=== PATIENT | female | born 1980 | race African-American/Black ===

== ENCOUNTER 2017-06-21 07:31 | Inpatient (IN) | payer MEDICARE, MEDICAID ==
[~2017-06-21] VITALS: Ht 180.3 cm; Wt 93.0 kg
[~2017-06-21 07:31] MED LIST: AMLO10TA4 PO; ATOR10TA PO; BISA-81 PO; HYDR-4134 PO; OMEP40CA34 PO; ONDA4TAB21 PO; TRAM100T28 PO
[2017-06-21] MEDS ORDERED: MORPHINE SULFATE 4 MG/ML CPJ (NOT FOR IM USE) IV STA (08:20)
[2017-06-21] MEDS ORDERED: ONDANSETRON HCL 4MG/2ML VIAL IV STA (08:20)
[2017-06-21 09:31] LABS: BASOPHILS % 0.7 % (0.0-2.0); EOSINOPHILS % 0.1 % (0.0-5.0); HEMATOCRIT. 35.6 % (36.0-48.0); HEMOGLOBIN. 11.6 g/dL (12.0-16.0); LYMPHOCYTES % 13.5 % (20.0-50.0); MEAN CORPUSCULAR HEMOGLOBIN 28.9 pg (28.0-32.0); MEAN CORPUSCULAR VOLUME 88.7 fL (81.0-99.0); MEAN PLATELET VOLUME 7.9 fl (7.4-10.4); NEUTROPHILS % 81.7 % (40.0-76.0); PLATELET 153 x1000/uL (130-400); RED BLOOD CELL COUNT 4.02 mill/uL (4.2-5.4); RED CELL DISTRIBUTION WIDTH 17.6 % (11.6-14.6)
[2017-06-21 09:44] LABS: CARBON DIOXIDE 21 mEq/L (21-32); CHLORIDE 101 mEq/L (98-107)
[2017-06-21] MEDS ORDERED: INSULIN REGULAR (HUMULIN R) 300UNITS/3ML IV ONE (10:00)
[2017-06-21] MEDS ORDERED: SODIUM BICARBONATE 8.4% 1 MEQ/ML 50ML SYR IV ONE (10:00)
[2017-06-21] MEDS ORDERED: DEXTROSE 50% WATER 50ML SYRINGE IV ONE (10:00)
[2017-06-21] MEDS ORDERED: MORPHINE SULFATE 4 MG/ML CPJ (NOT FOR IM USE) IV ONE (12:45)
[2017-06-21] MEDS ORDERED: ONDANSETRON HCL 4MG/2ML VIAL IV ONE (12:45)
[2017-06-21] MEDS ORDERED: CLONIDINE 0.1MG TABLET PO PRN (14:15)
[2017-06-21] MEDS ORDERED: MAGNESIUM/ALUMINUM HYDROXIDE/SIMETHICONE 30ML UDC PO PRN (14:15)
[2017-06-21] MEDS ORDERED: DOCUSATE SODIUM 100MG CAPSULE PO PRN (14:15)
[2017-06-21] MEDS ORDERED: ACETAMINOPHEN 325MG TABLET PO PRN (14:15)
[2017-06-21] MEDS ORDERED: LORAZEPAM 2MG/ML CPJ IV PRN (14:15)
[2017-06-21] MEDS ORDERED: GUAIFENESIN 200MG/10ML SUGAR FREE UDC PO PRN (14:15)
[2017-06-21] MEDS ORDERED: DIPHENHYDRAMINE 50MG/ML VIAL IV PRN (14:15)
[2017-06-21 16:42] VITALS: BP 182/91
[2017-06-21 18:04] VITALS: BP 182/91
[2017-06-21] MEDS: HYDROMORPHONE HCL/PF 2MG/ML CPJ IV PRN ×2 (18:37→22:42)
[2017-06-21 20:00] VITALS: BP 178/90
[2017-06-21 22:20] LABS: INR 1.1; PARTIAL THROMBOPLASTIN TIME 24.6 sec (23.4-31.0)
[2017-06-21 22:24] LABS: HCG SCREEN NEGATIVE
[2017-06-22 00:14] VITALS: BP 201/94
[2017-06-22] MEDS: ONDANSETRON HCL 4MG/2ML VIAL IV PRN ×2 (00:24→12:09)
[2017-06-22] MEDS: HYDROMORPHONE HCL/PF 2MG/ML CPJ IV PRN ×2 (05:44→12:10)
[2017-06-22 06:30] LABS: BASOPHILS % 0.5 % (0.0-2.0); EOSINOPHILS % 1.3 % (0.0-5.0); HEMATOCRIT. 36.9 % (36.0-48.0); HEMOGLOBIN. 11.6 g/dL (12.0-16.0); LYMPHOCYTES % 36.6 % (20.0-50.0); MEAN CORPUSCULAR HEMOGLOBIN 28.1 pg (28.0-32.0); MEAN CORPUSCULAR VOLUME 89.1 fL (81.0-99.0); MEAN PLATELET VOLUME 8.2 fl (7.4-10.4); NEUTROPHILS % 51.6 % (40.0-76.0); PLATELET 111 x1000/uL (130-400); RED BLOOD CELL COUNT 4.14 mill/uL (4.2-5.4); RED CELL DISTRIBUTION WIDTH 17.3 % (11.6-14.6)
[2017-06-22 06:48] LABS: PHOSPHORUS 7.2 mg/dL (2.5-4.9)
[2017-06-22 07:54] VITALS: BP 187/107
[2017-06-22 11:25] VITALS: BP 185/92
[2017-06-22] MEDS ORDERED: LOSARTAN POTASSIUM 100 MG TABLET PO SCH (11:30)
[2017-06-22] MEDS ORDERED: AMLODIPINE 10MG TABLET PO SCH (11:30)
[2017-06-22 12:00] VITALS: BP 155/85
[2017-06-22] MEDS ORDERED: CALCIUM ACETATE 667MG CAPSULE PO SCH (12:50)
[2017-06-22 15:40] VITALS: BP 155/85
[2017-06-23] MEDS ORDERED: FOLIC ACID/VITAMIN B COMP W-C TABLET PO SCH (09:00)
== END 2017-06-22 16:45 | disposition home or self-care (01) | DRG 73 ==
LOC: ER 07:57 → EDBEDREQ 15:35 → ENRESERV 15:40 → EDBEDREQ 15:54 → 6WST 15:54 → EDBEDREQTM 15:54
PROVIDERS: ADMIT Hospitalist; ATTEND Hospitalist
PROC: 5A1D00Z (ICD-10-PCS; principal; 2017-06-21)
DX: E11.43 Type 2 diabetes mellitus with diabetic autonomic (poly)neuropathy (principal); N18.6 End stage renal disease; E11.22 Type 2 diabetes mellitus with diabetic chronic kidney disease; I12.0 Hypertensive chronic kidney disease with stage 5 chronic kidney disease or end stage renal disease; F11.20 Opioid dependence, uncomplicated; K86.1 Other chronic pancreatitis; K31.84 Gastroparesis; E87.5 Hyperkalemia; F41.9 Anxiety disorder, unspecified; D64.9 Anemia, unspecified; Z99.2 Dependence on renal dialysis; Z88.0 Allergy status to penicillin; Z83.3 Family history of diabetes mellitus; Z84.1 Family history of disorders of kidney and ureter
CPT/HCPCS: 36415; 71010; 80048; 80053; 83605; 83690; 83735; 84100; 84703; 85025; 85610; 85730; 87040; 96374; 96375; 96376; 99285; J1170; J2060; J2270; J2405; J7050

== ENCOUNTER 2017-07-13 12:55 | Emergency (ER) | payer MEDICARE, MEDICAID ==
[~2017-07-13] VITALS: Ht 167.6 cm; Wt 90.0 kg
[2017-07-13] MEDS ORDERED: MORPHINE SULFATE 4 MG/ML CPJ (NOT FOR IM USE) IV STA (13:36)
[2017-07-13] MEDS ORDERED: ONDANSETRON HCL 4MG/2ML VIAL IV STA (13:36)
[2017-07-13 14:40] LABS: CARBON DIOXIDE 26 mEq/L (21-32); CHLORIDE 93 mEq/L (98-107)
[2017-07-13 14:43] LABS: PROTHROMBIN TIME 10.7 sec (9.4-11.6)
[2017-07-13 14:48] LABS: BASOPHILS % 0.2 % (0.0-2.0); EOSINOPHILS % 0.2 % (0.0-5.0); HEMATOCRIT. 34.6 % (36.0-48.0); HEMOGLOBIN. 11.2 g/dL (12.0-16.0); LYMPHOCYTES % 18.7 % (20.0-50.0); MEAN CORPUSCULAR HEMOGLOBIN 28.3 pg (28.0-32.0); MEAN CORPUSCULAR VOLUME 87.6 fL (81.0-99.0); MEAN PLATELET VOLUME 8.3 fl (7.4-10.4); MONOCYTES % 9.2 % (2.0-8.0); NEUTROPHILS % 71.7 % (40.0-76.0); PLATELET 127 x1000/uL (130-400); RED BLOOD CELL COUNT 3.95 mill/uL (4.2-5.4)
[2017-07-13 14:59] LABS: HCG SCREEN NEGATIVE
[2017-07-13] MEDS ORDERED: ONDANSETRON HCL 4MG/2ML VIAL IV ONE (16:45)
[2017-07-13] MEDS ORDERED: IOHEXOL-300 100 ML BOTTLE ONE (16:51)
[2017-07-13] MEDS ORDERED: MORPHINE SULFATE 4 MG/ML CPJ (NOT FOR IM USE) IV ONE (16:56)
[2017-07-13 17:25] VITALS: BP 172/98
== END 2017-07-13 18:57 | disposition home or self-care (01) ==
LOC: ER 13:10
DX: R10.13 Epigastric pain (principal); G89.29 Other chronic pain; N18.6 End stage renal disease; I12.0 Hypertensive chronic kidney disease with stage 5 chronic kidney disease or end stage renal disease; F41.9 Anxiety disorder, unspecified; Z88.0 Allergy status to penicillin; Z99.2 Dependence on renal dialysis
CPT/HCPCS: 36415; 74177; 80053; 83690; 84703; 85025; 85610; 96374; 96375; 96376; 99285; J2270; J2405; Q9967

== ENCOUNTER 2017-10-22 12:55 | Emergency (ER) | payer MEDICARE, MEDICAID ==
[~2017-10-22] VITALS: Ht 177.8 cm; Wt 83.0 kg
[2017-10-22] MEDS ORDERED: MORPHINE SULFATE 4 MG/ML CPJ (NOT FOR IM USE) IV STA (13:12)
[2017-10-22] MEDS ORDERED: MAGNESIUM/ALUMINUM HYDROXIDE/SIMETHICONE 30ML UDC PO STA (13:12)
[2017-10-22] MEDS ORDERED: ONDANSETRON HCL 4MG/2ML VIAL IV STA (13:12)
[2017-10-22] MEDS ORDERED: FAMOTIDINE 20MG/2ML VIAL IV STA (13:12)
[2017-10-22 14:44] LABS: BASOPHILS % 0.3 % (0.0-2.0); EOSINOPHILS % 0.6 % (0.0-5.0); HEMATOCRIT. 35.7 % (36.0-48.0); HEMOGLOBIN. 11.5 g/dL (12.0-16.0); LYMPHOCYTES % 18.6 % (20.0-50.0); MEAN CORPUSCULAR VOLUME 90.2 fL (81.0-99.0); MEAN PLATELET VOLUME 7.3 fl (7.4-10.4); MONOCYTES % 8.9 % (2.0-8.0); NEUTROPHILS % 71.6 % (40.0-76.0); PLATELET 114 x1000/uL (130-400); RED BLOOD CELL COUNT 3.96 mill/uL (4.2-5.4); RED CELL DISTRIBUTION WIDTH 16.6 % (11.6-14.6)
[2017-10-22 14:48] LABS: INR 1.1
[2017-10-22 14:50] LABS: HCG SCREEN NEGATIVE
[2017-10-22 14:58] LABS: CARBON DIOXIDE 29 mEq/L (21-32); CHLORIDE 96 mEq/L (98-107); ETHANOL BLOOD < 10 mg/dL; TROPONIN I < 0.02 ng/mL (0.00-0.04)
[2017-10-22] MEDS ORDERED: ONDANSETRON HCL 4MG/2ML VIAL IV ONE (15:00)
[2017-10-22] MEDS ORDERED: MORPHINE SULFATE 10 MG/ML CPJ IM ONE (15:15)
[2017-10-22] MEDS ORDERED: HYDRALAZINE 20MG/ML VIAL IV ONE (16:15)
[2017-10-22] MEDS ORDERED: NITROGLYCERIN OINT 1GM/INCH UDPKT TD STA (17:55)
[2017-10-22] MEDS ORDERED: METOCLOPRAMIDE HCL 10MG/2ML VIAL IV ONE (18:00)
[2017-10-22] MEDS ORDERED: LABETALOL 5MG/ML SYR 20 MG/4 ML SYRINGE IV ONE (18:00)
[2017-10-22 19:30] VITALS: BP 169/87
[2017-10-22] MEDS ORDERED: DEXT 5%/0.45% NACL 1000ML 1,000 ML IV SCH (19:56)
[2017-10-22] MEDS ORDERED: GUAIFENESIN 200MG/10ML SUGAR FREE UDC PO PRN (20:00)
[2017-10-22] MEDS ORDERED: ACETAMINOPHEN 650MG/20.3ML UDC GT PRN (20:00)
[2017-10-22] MEDS ORDERED: IPRATROPIUM/ALBUTEROL 0.5-3(2.5)MG/3ML NEB INH PRN (20:00)
[2017-10-22] MEDS ORDERED: HYDROCODONE/ACETAMINOPHEN 5/325MG TABLET PO PRN (20:00)
[2017-10-22] MEDS ORDERED: ACETAMINOPHEN 650MG SUPP PR PRN (20:00)
[2017-10-22] MEDS ORDERED: FAMOTIDINE 20MG/2ML VIAL IV SCH (20:00)
[2017-10-22] MEDS ORDERED: CLONIDINE 0.1MG TABLET PO PRN (20:00)
[2017-10-22] MEDS ORDERED: ACETAMINOPHEN 325MG TABLET PO PRN (20:00)
[2017-10-22] MEDS ORDERED: MAGNESIUM/ALUMINUM HYDROXIDE/SIMETHICONE 30ML UDC PO PRN (20:00)
[2017-10-22] MEDS ORDERED: ONDANSETRON HCL 4MG/2ML VIAL IV PRN (20:00)
[2017-10-22] MEDS ORDERED: DOCUSATE SODIUM 100MG CAPSULE PO PRN (20:00)
[2017-10-22] MEDS ORDERED: DEXTROSE 50% WATER 50ML SYRINGE IV PRN (20:15)
[2017-10-22] MEDS ORDERED: INSULIN LISPRO 100 UNITS/ML SUBCUT SCH (21:00)
[2017-10-22] MEDS ORDERED: BLOOD SUGAR DIAGNOSTIC STRIP TEST SCH (21:00)
[2017-10-22] MEDS ORDERED: SODIUM CHLORIDE 0.9% INJ 3ML FLUSH IVF SCH (22:00)
== END 2017-10-22 20:50 | disposition left against medical advice (07) ==
LOC: ER 13:11 → EDBEDREQTM 16:33 → EDBEDREQ 16:33 → ER 20:50 → CANBEDREQ 20:57
DX: I12.0 Hypertensive chronic kidney disease with stage 5 chronic kidney disease or end stage renal disease (principal); N18.6 End stage renal disease; F41.9 Anxiety disorder, unspecified; Z88.0 Allergy status to penicillin; Z99.2 Dependence on renal dialysis
CPT/HCPCS: 36415; 71045; 80053; 83690; 83880; 84484; 84703; 85025; 85610; 93005; 96372; 96374; 96375; 96376; 99285; G0482; J0360; J2270; J2405; J2765; J3490

== ENCOUNTER 2018-04-29 01:13 | Emergency (ER) | payer MEDICARE, MEDICAID ==
[~2018-04-29] VITALS: Ht 172.7 cm; Wt 82.0 kg
[2018-04-29] MEDS ORDERED: KETOROLAC 30MG/ML VIAL IV STA (01:35)
[2018-04-29] MEDS ORDERED: FAMOTIDINE 20MG/2ML VIAL IV STA (01:35)
[2018-04-29] MEDS ORDERED: ONDANSETRON HCL 4MG/2ML VIAL IV STA (01:35)
[2018-04-29] MEDS ORDERED: MORPHINE SULFATE 4 MG/ML CPJ (NOT FOR IM USE) IV STA (01:35)
[2018-04-29 02:19] LABS: BASOPHILS % 0.2 % (0.0-2.0); EOSINOPHILS % 0.2 % (0.0-5.0); HEMOGLOBIN. 12.2 g/dL (12.0-16.0); LYMPHOCYTES % 13.2 % (20.0-50.0); MEAN CORPUSCULAR HEMOGLOBIN 28.1 pg (28.0-32.0); MEAN PLATELET VOLUME 8.1 fl (7.4-10.4); MONOCYTES % 5.2 % (2.0-8.0); NEUTROPHILS % 81.2 % (40.0-76.0); PLATELET 152 x1000/uL (130-400); RED BLOOD CELL COUNT 4.32 mill/uL (4.2-5.4); RED CELL DISTRIBUTION WIDTH 16.4 % (11.6-14.6)
[2018-04-29 02:20] LABS: CHLORIDE 95 mEq/L (98-107)
[2018-04-29 02:24] LABS: ETHANOL BLOOD < 10 mg/dL
[2018-04-29 02:39] LABS: PARTIAL THROMBOPLASTIN TIME 29.8 sec (23.4-31.0); PROTHROMBIN TIME 10.8 sec (9.4-11.6)
[2018-04-29] MEDS ORDERED: MORPHINE SULFATE 4 MG/ML CPJ (NOT FOR IM USE) IV ONE (02:45)
[2018-04-29 02:55] LABS: HCG SCREEN NEGATIVE
[2018-04-29] MEDS ORDERED: ONDANSETRON HCL 4MG/2ML VIAL IV ONE (03:00)
[2018-04-29] MEDS ORDERED: ACETAMINOPHEN 325MG TABLET PO ONE (08:00)
[2018-04-29 08:18] VITALS: BP 131/76
== END 2018-04-29 08:43 | disposition left against medical advice (07) ==
LOC: ER 01:13 → EDBEDREQ 03:48 → EDBEDREQTM 03:48 → ER 08:43 → CANBEDREQ 09:45
DX: I12.0 Hypertensive chronic kidney disease with stage 5 chronic kidney disease or end stage renal disease (principal); E87.70 Fluid overload, unspecified; R10.13 Epigastric pain; E87.5 Hyperkalemia; R94.31 Abnormal electrocardiogram [ECG] [EKG]; F41.9 Anxiety disorder, unspecified; N18.6 End stage renal disease; R94.8 Abnormal results of function studies of other organs and systems; Z99.2 Dependence on renal dialysis; Z88.0 Allergy status to penicillin
CPT/HCPCS: 36415; 71045; 80053; 83690; 83880; 84484; 84703; 85025; 85610; 85730; 93005; 96374; 96375; 96376; 99285; G0482; J1885; J2270; J2405; J3490

== ENCOUNTER 2018-06-22 14:11 | Inpatient (IN) | payer OTHER, MEDICARE, MEDICAID ==
[~2018-06-22] VITALS: Ht 165.1 cm; Wt 78.0 kg
[2018-06-22] MEDS ORDERED: MORPHINE SULFATE 4 MG/ML CPJ (NOT FOR IM USE) IV STA (14:19)
[2018-06-22] MEDS ORDERED: PANTOPRAZOLE SODIUM 40 MG/VIAL IV ONE (14:45)
[2018-06-22 15:06] LABS: BASOPHILS % 0.5 % (0.0-2.0); EOSINOPHILS % 0.7 % (0.0-5.0); HEMATOCRIT. 37.1 % (36.0-48.0); HEMOGLOBIN. 11.6 g/dL (12.0-16.0); LYMPHOCYTES % 16.5 % (20.0-50.0); MEAN CORPUSCULAR VOLUME 92.4 fL (81.0-99.0); MEAN PLATELET VOLUME 8.5 fl (7.4-10.4); MONOCYTES % 4.6 % (2.0-8.0); NEUTROPHILS % 77.7 % (40.0-76.0); PLATELET 204 x1000/uL (130-400); RED BLOOD CELL COUNT 4.02 mill/uL (4.2-5.4); RED CELL DISTRIBUTION WIDTH 18.5 % (11.6-14.6)
[2018-06-22 15:10] LABS: CHLORIDE 99 mEq/L (98-107); PROTHROMBIN TIME 10.1 sec (9.1-11.1)
[2018-06-22] MEDS ORDERED: DEXTROSE 50% WATER 50ML SYRINGE IV NR (16:00)
[2018-06-22] MEDS ORDERED: ALBUTEROL (0.083%) 2.5MG/3ML NEB HHN SCH (16:00)
[2018-06-22] MEDS ORDERED: METOCLOPRAMIDE HCL 10MG/2ML VIAL IV ONE (16:15)
[2018-06-22] MEDS ORDERED: INSULIN REGULAR (HUMULIN R) 300UNITS/3ML IV NR (16:23)
[2018-06-22] MEDS ORDERED: CALCIUM GLUCONATE 1,000 MG in DEXT 5% WATER 100 ML IV NR (16:30)
[2018-06-22] MEDS ORDERED: MORPHINE SULFATE 4 MG/ML CPJ (NOT FOR IM USE) IV ONE (16:30)
[2018-06-22] MEDS ORDERED: ZOLPIDEM TARTRATE 5MG TABLET PO PRN (17:45)
[2018-06-22] MEDS ORDERED: ONDANSETRON HCL 4MG/2ML INJ IV PRN (17:45)
[2018-06-22] MEDS ORDERED: DEXTROSE 50% WATER 50ML SYRINGE IV PRN (17:45)
[2018-06-22] MEDS ORDERED: DIPHENHYDRAMINE 50MG/ML VIAL IV PRN (17:45)
[2018-06-22] MEDS ORDERED: MAGNESIUM/ALUMINUM HYDROXIDE/SIMETHICONE 30ML UDC PO PRN (17:45)
[2018-06-22] MEDS ORDERED: LORAZEPAM 0.5MG TABLET PO PRN (17:45)
[2018-06-22] MEDS ORDERED: NITROGLYCERIN 0.4MG TABLET SL SL PRN (17:45)
[2018-06-22] MEDS ORDERED: DOCUSATE SODIUM 100MG CAPSULE PO PRN (17:45)
[2018-06-22] MEDS ORDERED: ACETAMINOPHEN 325MG TABLET PO PRN (17:45)
[2018-06-22] MEDS ORDERED: IPRATROPIUM/ALBUTEROL 0.5-3(2.5)MG/3ML NEB INH PRN (17:45)
[2018-06-22] MEDS ORDERED: GUAIFENESIN 200MG/10ML SUGAR FREE UDC PO PRN (17:45)
[2018-06-22] MEDS ORDERED: METOCLOPRAMIDE 10MG/10 ML UDC PO SCH (17:50)
[2018-06-22] MEDS ORDERED: LABETALOL 5MG/ML SYR 20 MG/4 ML SYRINGE IV ONE (18:00)
[2018-06-22] MEDS ORDERED: CLONIDINE 0.1MG TABLET PO PRN (18:29)
[2018-06-22 19:46] VITALS: BP 185/110
[2018-06-22 19:50] VITALS: BP 195/110
[2018-06-22] MEDS ORDERED: CLONIDINE HCL 0.3MG/24HR PATCH TD NR (20:00)
[2018-06-22] MEDS ORDERED: SUCRALFATE 1 G/10 ML UDC PO SCH (21:00)
[2018-06-22] MEDS ORDERED: METOPROLOL TARTRATE 25MG TABLET PO SCH (21:00)
[2018-06-22] MEDS ORDERED: INSULIN LISPRO 100 UNITS/ML SUBCUT SCH (21:00)
[2018-06-22] MEDS ORDERED: FAMOTIDINE 20MG TABLET PO SCH (21:00)
[2018-06-22] MEDS ORDERED: BLOOD SUGAR DIAGNOSTIC STRIP TEST SCH (21:00)
[2018-06-22] MEDS ORDERED: HYDRALAZINE HCL 50MG TABLET PO SCH (22:00)
[2018-06-23] MEDS ORDERED: SEVELAMER CARBONATE 800 MG TABLET PO SCH (07:50)
[2018-06-23] MEDS ORDERED: AMLODIPINE 10MG TABLET PO SCH (09:00)
[2018-06-23] MEDS ORDERED: FOLIC ACID/VITAMIN B COMP W-C TABLET PO SCH (09:00)
== END 2018-06-23 09:46 | disposition left against medical advice (07) | DRG 640 ==
LOC: ER 14:11 → 6WST 16:28 → ENRESERV 17:23 → 6WST 21:52
PROVIDERS: ADMIT Internal Medicine; ATTEND Internal Medicine
PROC: 5A1D70Z Performance of Urinary Filtration, Intermittent, Less than 6 Hours Per Day (ICD-10-PCS; principal; 2018-06-23)
DX: E87.5 Hyperkalemia (principal); N18.6 End stage renal disease; I13.11 Hypertensive heart and chronic kidney disease without heart failure, with stage 5 chronic kidney disease, or end stage renal disease; K86.1 Other chronic pancreatitis; N25.81 Secondary hyperparathyroidism of renal origin; E87.1 Hypo-osmolality and hyponatremia; D63.8 Anemia in other chronic diseases classified elsewhere; E11.22 Type 2 diabetes mellitus with diabetic chronic kidney disease; E78.00 Pure hypercholesterolemia, unspecified; E83.39 Other disorders of phosphorus metabolism; K31.84 Gastroparesis; E11.43 Type 2 diabetes mellitus with diabetic autonomic (poly)neuropathy; Z53.21 Procedure and treatment not carried out due to patient leaving prior to being seen by health care provider; Z99.2 Dependence on renal dialysis; Z82.49 Family history of ischemic heart disease and other diseases of the circulatory system; Z83.3 Family history of diabetes mellitus; Z88.0 Allergy status to penicillin; Z79.891 Long term (current) use of opiate analgesic; Z84.1 Family history of disorders of kidney and ureter; Z79.899 Other long term (current) drug therapy
CPT/HCPCS: 36415; 71045; 80053; 82962; 83036; 83605; 83690; 83735; 84100; 84484; 85025; 85610; 93005; 94640; 96365; 96375; 96376; 99285; C9113; J0610; J1815; J2270; J2765; J7030; J7060; J7611; J8597

== ENCOUNTER 2018-10-05 11:10 | Inpatient (IN) | payer MEDICARE, MEDICAID ==
[~2018-10-05] VITALS: Ht 162.6 cm; Wt 79.8 kg
[2018-10-05] MEDS ORDERED: MORPHINE SULFATE 4 MG/ML CPJ (NOT FOR IM USE) IV STA (11:40)
[2018-10-05] MEDS ORDERED: ONDANSETRON HCL 4MG/2ML INJ IV STA (11:40)
[2018-10-05] MEDS ORDERED: HYDRALAZINE 20MG/ML VIAL IV ONE (12:00)
[2018-10-05] MEDS ORDERED: MORPHINE SULFATE 10 MG/ML CPJ IV STA (12:08)
[2018-10-05 12:35] LABS: BASOPHILS % 0.9 % (0.0-2.0); EOSINOPHILS % 0.3 % (0.0-5.0); HEMATOCRIT. 31.7 % (36.0-48.0); HEMOGLOBIN. 10.1 g/dL (12.0-16.0); LYMPHOCYTES % 9.2 % (20.0-50.0); MEAN CORPUSCULAR HEMOGLOBIN 29.3 pg (28.0-32.0); MEAN CORPUSCULAR VOLUME 92.3 fL (81.0-99.0); MEAN PLATELET VOLUME 7.5 fl (7.4-10.4); MONOCYTES % 6.1 % (2.0-8.0); NEUTROPHILS % 83.5 % (40.0-76.0); PLATELET 167 x1000/uL (130-400); RED BLOOD CELL COUNT 3.43 mill/uL (4.2-5.4); RED CELL DISTRIBUTION WIDTH 16.2 % (11.6-14.6)
[2018-10-05 12:38] LABS: CHLORIDE 101 mEq/L (98-107)
[2018-10-05 12:52] LABS: HCG SCREEN NEGATIVE
[2018-10-05] MEDS ORDERED: SODIUM POLYSTYRENE SULFONATE 15 G/60 ML BOT PO ONE (13:15)
[2018-10-05] MEDS ORDERED: DEXTROSE 50% WATER 50ML SYRINGE IV ONE (13:15)
[2018-10-05] MEDS ORDERED: SODIUM BICARBONATE 8.4% 1 MEQ/ML 50ML SYR IV ONE (13:15)
[2018-10-05] MEDS ORDERED: INSULIN REGULAR (HUMULIN R) 300UNITS/3ML IV ONE (13:15)
[2018-10-05] MEDS ORDERED: ALBUTEROL (0.083%) 2.5MG/3ML NEB HHN ONE (13:15)
[2018-10-05] MEDS ORDERED: MORPHINE SULFATE 4 MG/ML CPJ (NOT FOR IM USE) IV ONE (13:30)
[2018-10-05] MEDS ORDERED: LORAZEPAM 2MG/ML CPJ IV ONE (13:45)
[2018-10-05] MEDS ORDERED: NITROGLYCERIN 0.4MG TABLET SL SL PRN (14:00)
[2018-10-05] MEDS ORDERED: ACETAMINOPHEN 325MG TABLET PO PRN (14:00)
[2018-10-05] MEDS ORDERED: ZOLPIDEM TARTRATE 5MG TABLET PO PRN (14:00)
[2018-10-05] MEDS ORDERED: DOCUSATE SODIUM 100MG CAPSULE PO PRN (14:00)
[2018-10-05] MEDS ORDERED: IPRATROPIUM/ALBUTEROL 0.5-3(2.5)MG/3ML NEB INH PRN (14:00)
[2018-10-05] MEDS ORDERED: LORAZEPAM 0.5MG TABLET PO PRN (14:00)
[2018-10-05] MEDS ORDERED: MAGNESIUM/ALUMINUM HYDROXIDE/SIMETHICONE 30ML UDC PO PRN (14:00)
[2018-10-05] MEDS ORDERED: DIPHENHYDRAMINE 50MG/ML VIAL IV PRN (14:00)
[2018-10-05] MEDS ORDERED: GUAIFENESIN 200MG/10ML SUGAR FREE UDC PO PRN (14:00)
[2018-10-05] MEDS ORDERED: ONDANSETRON HCL 4MG/2ML INJ IV PRN (14:00)
[2018-10-05] MEDS ORDERED: TRAMADOL 50MG TABLET PO PRN (14:00)
[2018-10-05] MEDS ORDERED: LIDOCAINE HCL 1% 20ML VIAL (Pyxis) INJ ONE (14:20)
[2018-10-05] MEDS ORDERED: SODIUM BICARBONATE 4% (2.4MEQ) 5ML VIAL IV ONE (14:20)
[2018-10-05] MEDS ORDERED: CALCIUM CARBONATE 500MG TABLET CHEW PO SCH (17:00)
[2018-10-05] MEDS: METOCLOPRAMIDE 10MG/10 ML UDC PO SCH (17:50)
[2018-10-05] MEDS: CLONIDINE 0.1MG TABLET PO PRN (18:02)
[2018-10-05 19:42] VITALS: BP 202/147
[2018-10-05 20:00] VITALS: BP_SYST 202; BP_SYST 226; BP_DIAS 110; BP_DIAS 147
[2018-10-05] MEDS: SUCRALFATE 1 G/10 ML UDC PO SCH ×2 (20:41→21:08)
[2018-10-05] MEDS: CALCIUM CARBONATE 500MG TABLET CHEW PO SCH (20:42)
[2018-10-05] MEDS: SEVELAMER CARBONATE 800 MG TABLET PO SCH (20:43)
[2018-10-05] MEDS: HYDRALAZINE HCL 50MG TABLET PO SCH (20:44)
[2018-10-05] MEDS: FAMOTIDINE 20MG TABLET PO SCH (20:45)
[2018-10-05] MEDS ORDERED: ATORVASTATIN CALCIUM 10MG TABLET PO SCH (21:00)
[2018-10-05 21:40] LABS: CREATINE KINASE MB FRACTION 2.8 ng/mL (0.5-3.6)
[2018-10-06] VITALS: BP 176/96
[2018-10-06] MEDS: CLONIDINE 0.1MG TABLET PO PRN (00:43)
[2018-10-06] MEDS: HYDRALAZINE HCL 50MG TABLET PO SCH ×2 (02:00→12:39)
[2018-10-06 06:47] LABS: CREATINE KINASE MB FRACTION 2.6 ng/mL (0.5-3.6)
[2018-10-06] MEDS: SUCRALFATE 1 G/10 ML UDC PO SCH ×2 (07:40→12:40)
[2018-10-06] MEDS: METOCLOPRAMIDE 10MG/10 ML UDC PO SCH ×2 (07:40→12:40)
[2018-10-06] MEDS: CALCIUM CARBONATE 500MG TABLET CHEW PO SCH ×2 (08:10→13:10)
[2018-10-06] MEDS: SEVELAMER CARBONATE 800 MG TABLET PO SCH ×2 (08:10→13:10)
[2018-10-06] MEDS ORDERED: AMLODIPINE 10MG TABLET PO SCH (09:00)
[2018-10-06] MEDS ORDERED: FOLIC ACID/VITAMIN B COMP W-C TABLET PO SCH (09:00)
[2018-10-06] MEDS: FAMOTIDINE 20MG TABLET PO SCH (12:42)
[2018-10-06 13:00] VITALS: BP 176/96
[2018-10-07] MEDS ORDERED: EPOETIN ALFA 4000UNITS/ML VIAL SUBCUT SCH (09:00)
== END 2018-10-06 15:10 | disposition left against medical advice (07) | DRG 291 ==
LOC: ER 14:00 → ENRESERV 14:34 → CANRESERV 14:34 → ENRESERV 16:06 → CANRESERV 16:06 → ENRESERV 16:08 → 7WST 17:45
PROVIDERS: ADMIT Internal Medicine; ATTEND Internal Medicine
PROC: 02HV33Z Insertion of Infusion Device into Superior Vena Cava, Percutaneous Approach (ICD-10-PCS; principal; 2018-10-05)
PROC: B548ZZA Ultrasonography of Superior Vena Cava, Guidance (ICD-10-PCS; 2018-10-05)
PROC: B5181ZA Fluoroscopy of Superior Vena Cava using Low Osmolar Contrast, Guidance (ICD-10-PCS; 2018-10-05)
PROC: 5A1D70Z Performance of Urinary Filtration, Intermittent, Less than 6 Hours Per Day (ICD-10-PCS; 2018-10-05)
DX: I13.2 Hypertensive heart and chronic kidney disease with heart failure and with stage 5 chronic kidney disease, or end stage renal disease (principal); N18.6 End stage renal disease; I50.23 Acute on chronic systolic (congestive) heart failure; E87.1 Hypo-osmolality and hyponatremia; E87.2 Acidosis; N25.81 Secondary hyperparathyroidism of renal origin; D63.8 Anemia in other chronic diseases classified elsewhere; E11.22 Type 2 diabetes mellitus with diabetic chronic kidney disease; E11.43 Type 2 diabetes mellitus with diabetic autonomic (poly)neuropathy; E87.5 Hyperkalemia; K29.70 Gastritis, unspecified, without bleeding; E78.00 Pure hypercholesterolemia, unspecified; Z53.21 Procedure and treatment not carried out due to patient leaving prior to being seen by health care provider; K31.84 Gastroparesis; Z56.0 Unemployment, unspecified; Z79.4 Long term (current) use of insulin; Z82.49 Family history of ischemic heart disease and other diseases of the circulatory system; Z83.3 Family history of diabetes mellitus; Z99.2 Dependence on renal dialysis; Z88.0 Allergy status to penicillin; Z79.899 Other long term (current) drug therapy
CPT/HCPCS: 36415; 36569; 71045; 74176; 76937; 77001; 80048; 82550; 82553; 82962; 83036; 83880; 84100; 84484; 84703; 93005; 96374; 96375; 96376; 99285; C1725; J0360; J1200; J1815; J2060; J2270; J2405; J3490; J8597

== ENCOUNTER 2018-10-17 09:37 | Emergency (ER) | payer MEDICARE, MEDICAID ==
[~2018-10-17] VITALS: Ht 172.7 cm; Wt 95.0 kg
[2018-10-17] MEDS ORDERED: SODIUM CHLORIDE 0.9% 1,000 ML IV ONE (10:47)
[2018-10-17] MEDS ORDERED: MORPHINE SULFATE 4 MG/ML CPJ (NOT FOR IM USE) IV STA (10:47)
[2018-10-17] MEDS ORDERED: ONDANSETRON HCL 4MG/2ML INJ IV STA (10:47)
[2018-10-17 11:44] LABS: HEMATOCRIT. 32.5 % (36.0-48.0); HEMOGLOBIN. 10.5 g/dL (12.0-16.0); MEAN CORPUSCULAR HEMOGLOBIN 29.3 pg (28.0-32.0); MEAN CORPUSCULAR VOLUME 90.5 fL (81.0-99.0); MEAN PLATELET VOLUME 7.6 fl (7.4-10.4); PLATELET 188 x1000/uL (130-400); RED BLOOD CELL COUNT 3.59 mill/uL (4.2-5.4); RED CELL DISTRIBUTION WIDTH 16.1 % (11.6-14.6)
[2018-10-17 11:55] LABS: CHLORIDE 96 mEq/L (98-107)
[2018-10-17 12:24] LABS: HCG SCREEN NEGATIVE
[2018-10-17] MEDS ORDERED: LORAZEPAM 2MG/ML CPJ IV ONE (12:30)
[2018-10-17 13:12] LABS: PLATELET ESTIMATE NORMAL
[2018-10-17] MEDS ORDERED: MORPHINE SULFATE 4 MG/ML CPJ (NOT FOR IM USE) IV ONE (13:15)
[2018-10-17] MEDS ORDERED: ONDANSETRON HCL 4MG/2ML INJ IV ONE (13:45)
[2018-10-17 14:50] VITALS: BP 145/77
== END 2018-10-17 14:55 | disposition home or self-care (01) ==
LOC: ER 09:37
DX: R10.84 Generalized abdominal pain (principal); N18.6 End stage renal disease; E03.9 Hypothyroidism, unspecified; Z99.2 Dependence on renal dialysis; Z79.899 Other long term (current) drug therapy; Z88.0 Allergy status to penicillin
CPT/HCPCS: 36415; 71045; 74176; 80053; 83690; 84703; 85025; 93005; 96361; 96374; 96375; 96376; 99284; J2060; J2270; J2405; J7030

== ENCOUNTER 2018-10-21 16:35 | Emergency (ER) | payer MEDICARE, MEDICAID ==
[~2018-10-21] VITALS: Ht 167.6 cm; Wt 84.0 kg
[2018-10-21] MEDS ORDERED: SODIUM CHLORIDE 0.9% 500 ML IV ONE (18:28)
[2018-10-21] MEDS ORDERED: ONDANSETRON HCL 4MG/2ML INJ IV STA (18:28)
[2018-10-21] MEDS ORDERED: PANTOPRAZOLE SODIUM 40 MG/VIAL IV ONE (18:30)
[2018-10-21 19:30] LABS: BASOPHILS % 0.2 % (0.0-2.0); HEMATOCRIT. 30.9 % (36.0-48.0); HEMOGLOBIN. 9.8 g/dL (12.0-16.0); LYMPHOCYTES % 8.2 % (20.0-50.0); MEAN CORPUSCULAR HEMOGLOBIN 28.8 pg (28.0-32.0); MEAN CORPUSCULAR VOLUME 90.9 fL (81.0-99.0); MEAN PLATELET VOLUME 8.4 fl (7.4-10.4); MONOCYTES % 6.5 % (2.0-8.0); NEUTROPHILS % 85.1 % (40.0-76.0); PLATELET 181 x1000/uL (130-400); RED BLOOD CELL COUNT 3.39 mill/uL (4.2-5.4); RED CELL DISTRIBUTION WIDTH 16.6 % (11.6-14.6)
[2018-10-21 19:36] LABS: CHLORIDE 101 mEq/L (98-107); PROTHROMBIN TIME 10.4 sec (9.1-11.1)
[2018-10-21] MEDS ORDERED: METOCLOPRAMIDE HCL 10MG/2ML VIAL IV ONE (21:00)
[2018-10-21 21:31] VITALS: BP 156/71
== END 2018-10-21 22:00 | disposition home or self-care (01) ==
LOC: ER 16:35
DX: R10.0 Acute abdomen (principal); R19.7 Diarrhea, unspecified; I12.0 Hypertensive chronic kidney disease with stage 5 chronic kidney disease or end stage renal disease; N18.6 End stage renal disease; Z99.2 Dependence on renal dialysis; Z88.0 Allergy status to penicillin
CPT/HCPCS: 36415; 80053; 83690; 83880; 84484; 85025; 85610; 96361; 96374; 96375; 99283; C9113; J2405; J2765

== ENCOUNTER 2018-10-30 00:42 | Inpatient (IN) | payer MEDICARE, MEDICAID ==
[~2018-10-30] VITALS: Ht 180.3 cm; Wt 85.3 kg
[2018-10-30] MEDS ORDERED: SODIUM CHLORIDE 0.9% 1,000 ML IV ONE (06:28)
[2018-10-30] MEDS ORDERED: MORPHINE SULFATE 4 MG/ML CPJ (NOT FOR IM USE) IV ONE (06:45)
[2018-10-30] MEDS ORDERED: ONDANSETRON HCL 4MG/2ML INJ IV ONE (06:45)
[2018-10-30] MEDS ORDERED: ONDANSETRON HCL 4MG/2ML INJ ONE (06:59)
[2018-10-30] MEDS ORDERED: ACETAMINOPHEN 325MG TABLET PO ONE (09:00)
[2018-10-30 09:19] LABS: BASOPHILS % 0.9 % (0.0-2.0); EOSINOPHILS % 0.3 % (0.0-5.0); HEMATOCRIT. 32.3 % (36.0-48.0); HEMOGLOBIN. 10.1 g/dL (12.0-16.0); LYMPHOCYTES % 13.3 % (20.0-50.0); MEAN CORPUSCULAR HEMOGLOBIN 29.2 pg (28.0-32.0); MEAN CORPUSCULAR VOLUME 93.2 fL (81.0-99.0); MEAN PLATELET VOLUME 8.3 fl (7.4-10.4); MONOCYTES % 7.3 % (2.0-8.0); NEUTROPHILS % 78.2 % (40.0-76.0); PLATELET 153 x1000/uL (130-400); RED BLOOD CELL COUNT 3.46 mill/uL (4.2-5.4); RED CELL DISTRIBUTION WIDTH 17.7 % (11.6-14.6)
[2018-10-30 09:23] LABS: CHLORIDE 101 mEq/L (98-107)
[2018-10-30] MEDS ORDERED: MAGNESIUM/ALUMINUM HYDROXIDE/SIMETHICONE 30ML UDC PO PRN (12:15)
[2018-10-30] MEDS ORDERED: HYDROCODONE/ACETAMINOPHEN 5/325MG TABLET PO PRN (12:15)
[2018-10-30] MEDS ORDERED: ACETAMINOPHEN 325MG TABLET PO PRN (12:15)
[2018-10-30] MEDS ORDERED: ONDANSETRON HCL 4MG/2ML INJ IV PRN (12:15)
[2018-10-30 12:30] VITALS: BP 225/114
[2018-10-30] MEDS: HYDROMORPHONE HCL/PF 2MG/ML CPJ IV PRN ×2 (14:15→18:45)
[2018-10-30] MEDS: NEBIVOLOL HCL 5 MG TABLET PO SCH (15:53)
[2018-10-30] MEDS: LOSARTAN POTASSIUM 100 MG TABLET PO SCH (15:54)
[2018-10-30 16:00] VITALS: BP 238/123
[2018-10-30] MEDS: SEVELAMER CARBONATE 800 MG TABLET PO SCH (18:45)
[2018-10-30] MEDS: HYDRALAZINE HCL 25MG TABLET PO SCH (18:45)
[2018-10-30 20:00] VITALS: BP 162/89
[2018-10-30] MEDS ORDERED: EPOETIN ALFA 4000UNITS/ML VIAL SUBCUT SCH (21:00)
[2018-10-31] VITALS: BP 158/82
[2018-10-31] MEDS: HYDRALAZINE HCL 25MG TABLET PO SCH ×4 (02:48→18:35)
[2018-10-31] MEDS: HYDROMORPHONE HCL/PF 2MG/ML CPJ IV PRN ×5 (02:50→23:29)
[2018-10-31 04:30] VITALS: BP 155/88
[2018-10-31 08:00] VITALS: BP 121/68
[2018-10-31] MEDS: NEBIVOLOL HCL 5 MG TABLET PO SCH (08:53)
[2018-10-31] MEDS: AMLODIPINE 10MG TABLET PO SCH (08:54)
[2018-10-31] MEDS: LOSARTAN POTASSIUM 100 MG TABLET PO SCH (08:54)
[2018-10-31] MEDS: FOLIC ACID/VITAMIN B COMP W-C TABLET PO SCH (09:22)
[2018-10-31] MEDS: SEVELAMER CARBONATE 800 MG TABLET PO SCH ×3 (09:23→18:35)
[2018-10-31 10:12] LABS: BASOPHILS % 0.7 % (0.0-2.0); EOSINOPHILS % 1.7 % (0.0-5.0); HEMOGLOBIN. 10.8 g/dL (12.0-16.0); LYMPHOCYTES % 12.6 % (20.0-50.0); MEAN CORPUSCULAR HEMOGLOBIN 29.5 pg (28.0-32.0); MEAN CORPUSCULAR VOLUME 92.8 fL (81.0-99.0); MEAN PLATELET VOLUME 6.9 fl (7.4-10.4); MONOCYTES % 6.4 % (2.0-8.0); NEUTROPHILS % 78.6 % (40.0-76.0); PLATELET 102 x1000/uL (130-400); RED BLOOD CELL COUNT 3.66 mill/uL (4.2-5.4); RED CELL DISTRIBUTION WIDTH 18.1 % (11.6-14.6)
[2018-10-31 11:56] LABS: CHLORIDE 103 mEq/L (98-107)
[2018-10-31 12:00] VITALS: BP 152/91
[2018-10-31 12:21] LABS: T4 FREE 1.25 ng/dL (0.76-1.46)
[2018-10-31] MEDS: PANTOPRAZOLE SODIUM 40 MG/VIAL IV SCH (13:28)
[2018-10-31] MEDS: CALCIUM ACETATE 667MG CAPSULE PO SCH ×2 (13:30→18:40)
[2018-10-31] MEDS: DIPHENHYDRAMINE 50MG/ML VIAL IV PRN ×2 (15:58→21:24)
[2018-10-31 16:00] VITALS: BP 169/72
[2018-10-31 20:00] VITALS: BP 162/78
[2018-10-31] MEDS: CLONIDINE 0.1MG TABLET PO PRN (21:24)
[2018-11-01] VITALS: BP 138/82
[2018-11-01 04:00] VITALS: BP 138/79
[2018-11-01] MEDS: HYDROMORPHONE HCL/PF 2MG/ML CPJ IV PRN ×3 (04:35→19:01)
[2018-11-01] MEDS: HYDRALAZINE HCL 25MG TABLET PO SCH ×4 (04:36→22:10)
[2018-11-01] MEDS: CALCIUM ACETATE 667MG CAPSULE PO SCH ×3 (07:50→19:00)
[2018-11-01] MEDS: SEVELAMER CARBONATE 800 MG TABLET PO SCH ×3 (07:50→18:59)
[2018-11-01] MEDS: NEBIVOLOL HCL 5 MG TABLET PO SCH (09:00)
[2018-11-01] MEDS: AMLODIPINE 10MG TABLET PO SCH (09:00)
[2018-11-01] MEDS ORDERED: PARICALCITOL 5 MCG/ML 1ML IV SCH (09:00)
[2018-11-01] MEDS: FOLIC ACID/VITAMIN B COMP W-C TABLET PO SCH (09:00)
[2018-11-01] MEDS: PANTOPRAZOLE SODIUM 40 MG/VIAL IV SCH (09:00)
[2018-11-01] MEDS: LOSARTAN POTASSIUM 100 MG TABLET PO SCH (09:00)
[2018-11-01 10:45] VITALS: BP 134/80
[2018-11-01] MEDS ORDERED: CITALOPRAM HYDROBROMIDE 10MG TABLET PO SCH (11:30)
[2018-11-01 18:50] VITALS: BP 162/78
[2018-11-01] MEDS: CLONIDINE 0.1MG TABLET PO PRN (18:59)
[2018-11-01 19:10] VITALS: BP 148/83
[2018-11-01 20:00] VITALS: BP 172/81
== END 2018-11-01 23:30 | disposition left against medical advice (07) | DRG 73 ==
LOC: ER 00:42 → ENRESERV 10:34 → 6EST 11:23 → EDBEDREQ 11:24 → 6EST 18:44
PROVIDERS: ADMIT Hospitalist; ATTEND Hospitalist
PROC: 5A1D70Z Performance of Urinary Filtration, Intermittent, Less than 6 Hours Per Day (ICD-10-PCS; principal; 2018-10-30)
PROC: 5A1D70Z Performance of Urinary Filtration, Intermittent, Less than 6 Hours Per Day (ICD-10-PCS; 2018-10-31)
DX: E11.43 Type 2 diabetes mellitus with diabetic autonomic (poly)neuropathy (principal); N18.6 End stage renal disease; N25.81 Secondary hyperparathyroidism of renal origin; I12.0 Hypertensive chronic kidney disease with stage 5 chronic kidney disease or end stage renal disease; K20.9 Esophagitis, unspecified; K31.84 Gastroparesis; I10 Essential (primary) hypertension; G89.4 Chronic pain syndrome; D64.9 Anemia, unspecified; F32.9 Major depressive disorder, single episode, unspecified; K29.70 Gastritis, unspecified, without bleeding; E11.22 Type 2 diabetes mellitus with diabetic chronic kidney disease; Z91.19 Patient's noncompliance with other medical treatment and regimen; Z88.0 Allergy status to penicillin
CPT/HCPCS: 36415; 76700; 84100; 84439; 84443; 84481; 96374; 96375; 99285; C9113; J1170; J1200; J2270; J2405; J2501; J7030

== ENCOUNTER 2018-11-09 03:10 | Emergency (ER) | payer MEDICARE, MEDICAID ==
[2018-11-09 07:49] LABS: HEMATOCRIT. 34.4 % (36.0-48.0); HEMOGLOBIN. 10.8 g/dL (12.0-16.0); MEAN CORPUSCULAR VOLUME 92.2 fL (81.0-99.0); MEAN PLATELET VOLUME 7.9 fl (7.4-10.4); PLATELET 223 x1000/uL (130-400); RED BLOOD CELL COUNT 3.73 mill/uL (4.2-5.4); RED CELL DISTRIBUTION WIDTH 17.6 % (11.6-14.6)
[2018-11-09 08:20] LABS: CHLORIDE 97 mEq/L (98-107)
[2018-11-09 08:42] LABS: PLATELET ESTIMATE NORMAL
[2018-11-09] MEDS ORDERED: ONDANSETRON HCL 4MG TABLET ONE (09:26)
[2018-11-09] MEDS ORDERED: ONDANSETRON HCL 4MG/2ML INJ ONE (15:06)
[2018-11-09] MEDS ORDERED: METOCLOPRAMIDE HCL 10MG/2ML VIAL ONE (15:06)
[2018-11-09] MEDS ORDERED: LORAZEPAM 2MG/ML CPJ ONE (15:06)
[2018-11-09] MEDS ORDERED: KETOROLAC 30MG/ML VIAL ONE (15:06)
[2018-11-09] MEDS ORDERED: HALOPERIDOL LACTATE 5MG/ML VIAL IM ONE (15:08)
== END 2018-11-09 09:40 | disposition home or self-care (01) ==
LOC: ER 03:10
DX: R10.13 Epigastric pain (principal); R11.2 Nausea with vomiting, unspecified; I12.0 Hypertensive chronic kidney disease with stage 5 chronic kidney disease or end stage renal disease; N18.6 End stage renal disease; Z99.2 Dependence on renal dialysis; F12.90 Cannabis use, unspecified, uncomplicated; Z88.0 Allergy status to penicillin; Z79.899 Other long term (current) drug therapy
CPT/HCPCS: 36415; 74176; 80053; 83690; 85025; 99284; J1630; J1885; J2060; J2405; J2765; Q0162

== ENCOUNTER 2018-12-14 15:58 | Inpatient (IN) | payer MEDICARE, MEDICAID ==
[~2018-12-14] VITALS: Ht 162.6 cm; Wt 88.0 kg
[2018-12-14] MEDS ORDERED: SODIUM CHLORIDE 0.9% 1,000 ML IV ONE (16:22)
[2018-12-14] MEDS ORDERED: METOCLOPRAMIDE HCL 10MG/2ML VIAL IV STA (16:22)
[2018-12-14] MEDS ORDERED: MORPHINE SULFATE 4 MG/ML CPJ (NOT FOR IM USE) IV STA (16:22)
[2018-12-14] MEDS ORDERED: FAMOTIDINE 20MG/2ML VIAL IV STA (16:22)
[2018-12-14 17:37] LABS: CHLORIDE 98 mEq/L (98-107); HEMATOCRIT. 30.9 % (36.0-48.0); HEMOGLOBIN. 9.7 g/dL (12.0-16.0); MEAN CORPUSCULAR HEMOGLOBIN 28.6 pg (28.0-32.0); MEAN CORPUSCULAR VOLUME 91.3 fL (81.0-99.0); MEAN PLATELET VOLUME 7.4 fl (7.4-10.4); PLATELET 231 x1000/uL (130-400); RED BLOOD CELL COUNT 3.39 mill/uL (4.2-5.4); RED CELL DISTRIBUTION WIDTH 18.1 % (11.6-14.6)
[2018-12-14 17:41] LABS: ETHANOL BLOOD < 10 mg/dL; INR 1.1; PROTHROMBIN TIME 10.7 sec (9.1-11.1)
[2018-12-14] MEDS ORDERED: LORAZEPAM 0.5MG TABLET PO ONE (18:00)
[2018-12-14 18:14] LABS: HCG SCREEN NEGATIVE
[2018-12-14 18:19] LABS: PLATELET ESTIMATE NORMAL
[2018-12-14] MEDS ORDERED: ENALAPRIL 2.5MG/2ML VIAL 2ML IV ONE (18:30)
[2018-12-14] MEDS ORDERED: KETOROLAC 30MG/ML VIAL IV ONE (19:00)
[2018-12-14] MEDS ORDERED: MORPHINE SULFATE 4 MG/ML CPJ (NOT FOR IM USE) IV ONE (19:00)
[2018-12-14] MEDS ORDERED: ONDANSETRON HCL 4MG/2ML INJ IV ONE (19:45)
[2018-12-14] MEDS ORDERED: LEVOFLOXACIN 750MG PREMIX 150 ML IV ONE (21:00)
[2018-12-14] MEDS ORDERED: CLONIDINE 0.1MG TABLET PO PRN (21:45)
[2018-12-14] MEDS ORDERED: DOCUSATE SODIUM 100MG CAPSULE PO PRN (21:45)
[2018-12-14] MEDS ORDERED: IPRATROPIUM/ALBUTEROL 0.5-3(2.5)MG/3ML NEB INH PRN (21:45)
[2018-12-14] MEDS ORDERED: ACETAMINOPHEN 325MG TABLET PO PRN (21:45)
[2018-12-14] MEDS ORDERED: HYDROCODONE/ACETAMINOPHEN 5/325MG TABLET PO PRN (21:45)
[2018-12-14] MEDS: MORPHINE SULFATE 4 MG/ML CPJ (NOT FOR IM USE) IV PRN (22:49)
[2018-12-14] MEDS: ONDANSETRON HCL 4MG/2ML INJ IV PRN (22:50)
[2018-12-15] VITALS (53 sets, daily range): BP systolic 125–212; BP diastolic 72–160
[2018-12-15] MEDS ORDERED: LORAZEPAM 2MG/ML CPJ IV PRN (00:45)
[2018-12-15] MEDS: PANTOPRAZOLE SODIUM 40 MG/VIAL IV SCH ×2 (00:54→09:39)
[2018-12-15] MEDS ORDERED: NIFEDIPINE XL 60MG TAB PO SCH (02:00)
[2018-12-15] MEDS: HYDRALAZINE 20MG/ML VIAL IV PRN (03:06)
[2018-12-15 03:11] LABS: CLARITY URINE CLEAR (CLEAR); COLOR URINE YELLOW (YELLOW); KETONES URINE NEGATIVE (NEGATIVE); LEUKOCYTE ESTERASE URINE NEGATIVE (NEGATIVE); NITRITE URINE NEGATIVE (NEGATIVE); OCCULT BLOOD URINE 1+ (NEGATIVE); PH URINE >=9.0 (4.5-8.0); PROTEIN URINE 3+ (NEGATIVE); UROBILINOGEN URINE 0.2 E.U./dL (0.2-1.0)
[2018-12-15 03:42] LABS: *BARBITURATES SCREEN URINE NEGATIVE (NEGATIVE); *COCAINE SCREEN URINE NEGATIVE (NEGATIVE); METHADONE URINE SCREEN NEGATIVE (NEGATIVE)
[2018-12-15 03:43] LABS: *AMPHETAMINES SCREEN URINE NEGATIVE (NEGATIVE); *BENZODIAZEPINES SCREEN URINE NEGATIVE (NEGATIVE); PHENCYCLIDINE URINE SCREEN NEGATIVE (NEGATIVE)
[2018-12-15 03:46] LABS: CANNABINOID URINE SCREEN PRESUMTIVE POSITIVE (NEGATIVE); OPIATES URINE SCREEN PRESUMTIVE POSITIVE (NEGATIVE)
[2018-12-15] MEDS: MORPHINE SULFATE 4 MG/ML CPJ (NOT FOR IM USE) IV PRN ×3 (05:21→16:05)
[2018-12-15] MEDS: NICARDIPINE 100 MG in SODIUM CHLORIDE 0.9% 60 ML IV PRN ×2 (05:48→19:15)
[2018-12-15] MEDS ORDERED: DEXTROSE 50% WATER 50ML SYRINGE IV PRN (07:15)
[2018-12-15] MEDS: INSULIN LISPRO 100 UNITS/ML SUBCUT SCH ×3 (12:00→21:00)
[2018-12-15] MEDS: BLOOD SUGAR DIAGNOSTIC STRIP TEST SCH ×3 (12:02→21:00)
[2018-12-15] MEDS: ONDANSETRON HCL 4MG/2ML INJ IV PRN ×2 (12:41→19:16)
[2018-12-15] MEDS ORDERED: HYDROCODONE/APAP 7.5/325MG 1 TAB TABLET PO PRN (16:45)
[2018-12-15 16:51] LABS: BASOPHILS % 0.3 % (0.0-2.0); EOSINOPHILS % 0.2 % (0.0-5.0); HEMATOCRIT. 28.3 % (36.0-48.0); HEMOGLOBIN. 8.9 g/dL (12.0-16.0); LYMPHOCYTES % 7.2 % (20.0-50.0); MEAN CORPUSCULAR HEMOGLOBIN 28.7 pg (28.0-32.0); MEAN CORPUSCULAR VOLUME 91.4 fL (81.0-99.0); MEAN PLATELET VOLUME 7.8 fl (7.4-10.4); MONOCYTES % 6.6 % (2.0-8.0); NEUTROPHILS % 85.7 % (40.0-76.0); PLATELET 169 x1000/uL (130-400)
[2018-12-15 17:19] LABS: CREATINE KINASE MB FRACTION 2.9 ng/mL (0.5-3.6)
[2018-12-15 17:27] LABS: FOLIC ACID (FOLATE) SERUM 4.1 ng/mL (>5.38)
[2018-12-15] MEDS: EPOETIN ALFA 4000UNITS/ML VIAL SUBCUT SCH ×2 (21:00→22:15)
[2018-12-15] MEDS ORDERED: ATORVASTATIN CALCIUM 10MG TABLET PO SCH (21:00)
[2018-12-16] VITALS (79 sets, daily range): BP systolic 126–172; BP diastolic 19–109
[2018-12-16] MEDS: ONDANSETRON HCL 4MG/2ML INJ IV PRN (03:58)
[2018-12-16] MEDS: MORPHINE SULFATE 4 MG/ML CPJ (NOT FOR IM USE) IV PRN ×5 (03:58→21:57)
[2018-12-16] MEDS: DIPHENHYDRAMINE 50MG/ML VIAL IV PRN ×5 (04:40→21:54)
[2018-12-16] MEDS: BLOOD SUGAR DIAGNOSTIC STRIP TEST SCH ×4 (05:36→21:00)
[2018-12-16] MEDS: INSULIN LISPRO 100 UNITS/ML SUBCUT SCH ×4 (06:19→21:00)
[2018-12-16] MEDS: NICARDIPINE 100 MG in SODIUM CHLORIDE 0.9% 60 ML IV PRN (08:42)
[2018-12-16] MEDS: PANTOPRAZOLE SODIUM 40 MG/VIAL IV SCH (09:00)
[2018-12-16] MEDS: LOSARTAN POTASSIUM 100 MG TABLET PO SCH (10:06)
[2018-12-16] MEDS: HYDRALAZINE HCL 50MG TABLET PO SCH (21:00)
[2018-12-16] MEDS: ATORVASTATIN CALCIUM 20MG TABLET PO SCH (21:01)
[2018-12-16] MEDS: NIFEDIPINE XL 60MG TAB PO SCH (21:01)
[2018-12-17] VITALS (30 sets, daily range): BP systolic 129–185; BP diastolic 61–123
[2018-12-17] MEDS: DIPHENHYDRAMINE 50MG/ML VIAL IV PRN ×5 (02:13→20:31)
[2018-12-17] MEDS: MORPHINE SULFATE 4 MG/ML CPJ (NOT FOR IM USE) IV PRN ×3 (02:21→10:18)
[2018-12-17] MEDS: INSULIN LISPRO 100 UNITS/ML SUBCUT SCH ×4 (06:23→21:00)
[2018-12-17] MEDS: BLOOD SUGAR DIAGNOSTIC STRIP TEST SCH ×4 (06:23→21:00)
[2018-12-17] MEDS: NIFEDIPINE XL 60MG TAB PO SCH ×2 (09:00→20:31)
[2018-12-17] MEDS: PANTOPRAZOLE SODIUM 40 MG/VIAL IV SCH (09:00)
[2018-12-17] MEDS: HYDRALAZINE HCL 50MG TABLET PO SCH ×2 (09:00→20:32)
[2018-12-17] MEDS: LOSARTAN POTASSIUM 100 MG TABLET PO SCH (09:00)
[2018-12-17] MEDS: ONDANSETRON HCL 4MG/2ML INJ IV PRN ×2 (09:14→16:17)
[2018-12-17] MEDS ORDERED: ONDANSETRON HCL 4MG/2ML INJ IV NR (13:00)
[2018-12-17] MEDS: HYDROMORPHONE HCL/PF 2MG/ML CPJ IV PRN ×3 (13:15→21:59)
[2018-12-17 17:01] LABS: PHOSPHORUS 6.5 mg/dL (2.5-4.9)
[2018-12-17 17:06] LABS: CREATINE KINASE MB FRACTION 1.7 ng/mL (0.5-3.6)
[2018-12-17] MEDS: HYDRALAZINE 20MG/ML VIAL IV PRN (18:11)
[2018-12-17] MEDS: ATORVASTATIN CALCIUM 20MG TABLET PO SCH (20:32)
[2018-12-17] MEDS: MAGNESIUM/ALUMINUM HYDROXIDE/SIMETHICONE 30ML UDC PO PRN (22:00)
[2018-12-18] VITALS (19 sets, daily range): BP systolic 131–158; BP diastolic 66–97
[2018-12-18] MEDS: DIPHENHYDRAMINE 50MG/ML VIAL IV PRN ×5 (02:00→23:29)
[2018-12-18] MEDS: HYDROMORPHONE HCL/PF 2MG/ML CPJ IV PRN ×5 (02:01→23:27)
[2018-12-18] MEDS: BLOOD SUGAR DIAGNOSTIC STRIP TEST SCH ×4 (06:18→21:00)
[2018-12-18] MEDS: INSULIN LISPRO 100 UNITS/ML SUBCUT SCH ×4 (06:19→21:00)
[2018-12-18 07:03] LABS: BASOPHILS % 0.2 % (0.0-2.0); EOSINOPHILS % 2.4 % (0.0-5.0); HEMOGLOBIN. 11.2 g/dL (12.0-16.0); LYMPHOCYTES % 11.4 % (20.0-50.0); MEAN CORPUSCULAR HEMOGLOBIN 28.8 pg (28.0-32.0); MEAN PLATELET VOLUME 6.8 fl (7.4-10.4); MONOCYTES % 11.1 % (2.0-8.0); NEUTROPHILS % 74.9 % (40.0-76.0); PLATELET 155 x1000/uL (130-400); RED BLOOD CELL COUNT 3.87 mill/uL (4.2-5.4); RED CELL DISTRIBUTION WIDTH 18.1 % (11.6-14.6)
[2018-12-18] MEDS: HYDRALAZINE HCL 50MG TABLET PO SCH ×2 (08:08→23:30)
[2018-12-18] MEDS: LOSARTAN POTASSIUM 100 MG TABLET PO SCH (08:09)
[2018-12-18] MEDS: PANTOPRAZOLE SODIUM 40 MG/VIAL IV SCH (08:09)
[2018-12-18] MEDS: NIFEDIPINE XL 60MG TAB PO SCH ×2 (08:09→23:30)
[2018-12-18] MEDS: ONDANSETRON HCL 4MG/2ML INJ IV PRN ×2 (14:07→23:29)
[2018-12-18] MEDS: MAGNESIUM/ALUMINUM HYDROXIDE/SIMETHICONE 30ML UDC PO PRN (15:09)
[2018-12-18] MEDS: ATORVASTATIN CALCIUM 20MG TABLET PO SCH (21:00)
[2018-12-19] VITALS: BP 147/93
[2018-12-19] MEDS: HYDROMORPHONE HCL/PF 2MG/ML CPJ IV PRN ×3 (03:30→13:25)
[2018-12-19] MEDS: DIPHENHYDRAMINE 50MG/ML VIAL IV PRN ×3 (03:31→13:25)
[2018-12-19] MEDS: BLOOD SUGAR DIAGNOSTIC STRIP TEST SCH ×2 (07:20→12:20)
[2018-12-19] MEDS: INSULIN LISPRO 100 UNITS/ML SUBCUT SCH ×2 (07:50→12:50)
[2018-12-19] MEDS: PANTOPRAZOLE SODIUM 40 MG/VIAL IV SCH (08:37)
[2018-12-19] MEDS: NIFEDIPINE XL 60MG TAB PO SCH (09:50)
[2018-12-19] MEDS: HYDRALAZINE HCL 50MG TABLET PO SCH (09:51)
[2018-12-19] MEDS: LOSARTAN POTASSIUM 100 MG TABLET PO SCH (09:51)
[2018-12-19] MEDS ORDERED: ATOR20TA PO (11:08)
[2018-12-19] MEDS ORDERED: HYDR-4135 PO (11:08)
[2018-12-19] MEDS ORDERED: LOSA100T3 PO (11:08)
[2018-12-19] MEDS ORDERED: NIFE60TA64 PO (11:08)
[2018-12-19] MEDS ORDERED: DIPHENHYDRAMINE 50MG/ML VIAL IV PRN (11:15)
[2018-12-19 11:41] VITALS: BP 134/70
[2018-12-19] MEDS ORDERED: LANTHANUM CARBONATE 500MG CHEW TABLET PO SCH (12:50)
[2018-12-19 13:25] VITALS: BP 134/70
== END 2018-12-19 15:40 | disposition home or self-care (01) | DRG 73 ==
LOC: ER 15:58 → EDBEDREQ 20:31 → EDBEDREQTM 20:31 → EDBEDREQSVC 20:31 → EDBEDREQTM 20:48 → EDBEDREQ 20:48 → MICUNO 20:52 → ENRESERV 21:49 → EDBEDREQSVC 21:54 → EDBEDREQTM 21:54 → ENRESERV 12-15 04:10 → MICUNO 12-15 05:29 → MICUSO 12-17 16:00 → 6WST 12-18 09:51
PROVIDERS: ADMIT Internal Medicine; ATTEND Internal Medicine
PROC: 5A1D70Z Performance of Urinary Filtration, Intermittent, Less than 6 Hours Per Day (ICD-10-PCS; principal; 2018-12-15)
PROC: 5A1D70Z Performance of Urinary Filtration, Intermittent, Less than 6 Hours Per Day (ICD-10-PCS; 2018-12-18)
DX: E11.43 Type 2 diabetes mellitus with diabetic autonomic (poly)neuropathy (principal); N18.6 End stage renal disease; I16.1 Hypertensive emergency; J81.1 Chronic pulmonary edema; N25.81 Secondary hyperparathyroidism of renal origin; E87.1 Hypo-osmolality and hyponatremia; F11.20 Opioid dependence, uncomplicated; I12.0 Hypertensive chronic kidney disease with stage 5 chronic kidney disease or end stage renal disease; K31.84 Gastroparesis; D64.9 Anemia, unspecified; Z99.2 Dependence on renal dialysis; E11.22 Type 2 diabetes mellitus with diabetic chronic kidney disease; E78.5 Hyperlipidemia, unspecified; F32.9 Major depressive disorder, single episode, unspecified; G89.4 Chronic pain syndrome; E66.9 Obesity, unspecified; E83.39 Other disorders of phosphorus metabolism; F12.90 Cannabis use, unspecified, uncomplicated; L29.9 Pruritus, unspecified; Z88.0 Allergy status to penicillin; Z79.899 Other long term (current) drug therapy; Z71.3 Dietary counseling and surveillance
CPT/HCPCS: 36415; 71045; 74176; 80048; 80061; 80305; 80320; 82271; 82550; 82553; 82607; 82728; 82746; 82962; 83540; 83550; 83735; 83970; 84100; 84443; 84484; 84703; 93005; 96365; 96366; 96375; 99285; C1893; C9113; J0360; J0885; J1170; J1200; J1885; J1956; J2060; J2270; J2405; J2765; J3490; J7030; J7050; G0480

== ENCOUNTER 2019-01-11 07:16 | Inpatient (IN) | payer MEDICARE, MEDICAID ==
[~2019-01-11] VITALS: Ht 180.3 cm; Wt 84.4 kg
[~2019-01-11 07:16] MED LIST changes: +ATOR20TA PO; +HYDR-4135 PO; +LOSA100T3 PO; +NIFE60TA64 PO
[2019-01-11] MEDS ORDERED: MORPHINE SULFATE 4 MG/ML CPJ (NOT FOR IM USE) IV STA ×2 (08:47→11:48)
[2019-01-11] MEDS ORDERED: ONDANSETRON HCL 4MG/2ML INJ IV STA (08:47)
[2019-01-11 09:03] LABS: BASOPHILS % 0.3 % (0.0-2.0); EOSINOPHILS % 0.1 % (0.0-5.0); HEMATOCRIT. 31.4 % (36.0-48.0); HEMOGLOBIN. 9.9 g/dL (12.0-16.0); LYMPHOCYTES % 11.9 % (20.0-50.0); MEAN CORPUSCULAR HEMOGLOBIN 29.5 pg (28.0-32.0); MEAN CORPUSCULAR VOLUME 93.3 fL (81.0-99.0); MEAN PLATELET VOLUME 7.7 fl (7.4-10.4); MONOCYTES % 6.3 % (2.0-8.0); NEUTROPHILS % 81.4 % (40.0-76.0); PLATELET 184 x1000/uL (130-400); RED BLOOD CELL COUNT 3.37 mill/uL (4.2-5.4); RED CELL DISTRIBUTION WIDTH 19.1 % (11.6-14.6)
[2019-01-11 09:09] LABS: CHLORIDE 96 mEq/L (98-107)
[2019-01-11 09:10] LABS: PROTHROMBIN TIME 10.3 sec (9.6-11.0)
[2019-01-11 09:31] LABS: HCG SCREEN NEGATIVE
[2019-01-11] MEDS ORDERED: MORPHINE SULFATE 4 MG/ML CPJ (NOT FOR IM USE) IV ONE (12:30)
[2019-01-11] MEDS ORDERED: IPRATROPIUM/ALBUTEROL 0.5-3(2.5)MG/3ML NEB INH PRN (14:15)
[2019-01-11] MEDS ORDERED: HYDROCODONE/ACETAMINOPHEN 5/325MG TABLET PO PRN (14:15)
[2019-01-11] MEDS ORDERED: ONDANSETRON HCL 4MG/2ML INJ IV PRN (14:15)
[2019-01-11] MEDS ORDERED: CLONIDINE 0.1MG TABLET PO PRN (14:15)
[2019-01-11] MEDS ORDERED: LABETALOL 5MG/ML SYR 20 MG/4 ML SYRINGE IV ONE (14:15)
[2019-01-11] MEDS ORDERED: LORAZEPAM 0.5MG TABLET PO PRN (14:15)
[2019-01-11] MEDS: AMLODIPINE 10MG TABLET PO SCH (16:00)
[2019-01-11 16:53] VITALS: BP 213/111
[2019-01-11 16:59] VITALS: BP 213/111
[2019-01-11] MEDS: CALCIUM ACETATE 667MG CAPSULE PO SCH (17:18)
[2019-01-11] MEDS: NIFEDIPINE XL 60MG TAB PO SCH (17:19)
[2019-01-11] MEDS: LOSARTAN POTASSIUM 100 MG TABLET PO SCH (17:19)
[2019-01-11] MEDS: OMEPRAZOLE 20MG CAPSULE EXTENDED RELEASE PO SCH (17:19)
[2019-01-11] MEDS: HYDRALAZINE HCL 50MG TABLET PO SCH ×2 (17:19→19:55)
[2019-01-11] MEDS: PANTOPRAZOLE SODIUM 40 MG/VIAL IV SCH (18:00)
[2019-01-11 20:00] VITALS: BP 199/98
[2019-01-11] MEDS ORDERED: ATORVASTATIN CALCIUM 20MG TABLET PO SCH (21:00)
[2019-01-11] MEDS ORDERED: METOCLOPRAMIDE HCL 10MG/2ML VIAL IV PRN (22:15)
[2019-01-12] MEDS ORDERED: DIPHENHYDRAMINE 25MG CAPSULE PO PRN (00:15)
[2019-01-12] MEDS: OMEPRAZOLE 20MG CAPSULE EXTENDED RELEASE PO SCH (06:19)
[2019-01-12 06:37] LABS: BASOPHILS % 0.7 % (0.0-2.0); EOSINOPHILS % 3.5 % (0.0-5.0); HEMATOCRIT. 27.7 % (36.0-48.0); HEMOGLOBIN. 8.9 g/dL (12.0-16.0); LYMPHOCYTES % 20.9 % (20.0-50.0); MEAN CORPUSCULAR HEMOGLOBIN 30.1 pg (28.0-32.0); MEAN CORPUSCULAR VOLUME 93.7 fL (81.0-99.0); MEAN PLATELET VOLUME 7.3 fl (7.4-10.4); MONOCYTES % 10.9 % (2.0-8.0); PLATELET 184 x1000/uL (130-400); RED BLOOD CELL COUNT 2.96 mill/uL (4.2-5.4); RED CELL DISTRIBUTION WIDTH 18.9 % (11.6-14.6)
[2019-01-12] MEDS ORDERED: HYDROCODONE/APAP 7.5/325MG 1 TAB TABLET PO PRN (07:15)
[2019-01-12] MEDS: CALCIUM ACETATE 667MG CAPSULE PO SCH ×2 (07:40→12:40)
[2019-01-12 08:00] VITALS: BP 149/78
[2019-01-12 08:01] LABS: PHOSPHORUS 5.8 mg/dL (2.5-4.9)
[2019-01-12] MEDS ORDERED: HYDRALAZINE HCL 25MG TABLET PO SCH (08:30)
[2019-01-12] MEDS: LOSARTAN POTASSIUM 100 MG TABLET PO SCH (08:54)
[2019-01-12] MEDS: AMLODIPINE 10MG TABLET PO SCH (08:56)
[2019-01-12] MEDS: PANTOPRAZOLE SODIUM 40 MG/VIAL IV SCH (08:56)
[2019-01-12] MEDS: METOCLOPRAMIDE HCL 10MG/2ML VIAL IV SCH ×2 (08:56→12:00)
[2019-01-12] MEDS ORDERED: FOLIC ACID/VITAMIN B COMP W-C TABLET PO SCH (09:00)
[2019-01-12] MEDS: NIFEDIPINE XL 60MG TAB PO SCH (09:00)
[2019-01-12 09:54] LABS: T4 FREE 1.32 ng/dL (0.76-1.46)
[2019-01-12 10:00] VITALS: BP 140/80
[2019-01-12 12:00] VITALS: BP 138/79
[2019-01-12] MEDS ORDERED: EPOETIN ALFA 10000UNITS/ML VIAL SUBCUT SCH (21:00)
[2019-01-12] MEDS ORDERED: PARICALCITOL 5 MCG/ML 1ML IV SCH (21:00)
[2019-01-12] MEDS ORDERED: EPOETIN ALFA 4000UNITS/ML VIAL SUBCUT SCH ×2 (21:00)
== END 2019-01-12 15:00 | disposition left against medical advice (07) | DRG 73 ==
LOC: ER 07:16 → 8WST 12:16 → ENRESERV 15:12
PROVIDERS: ADMIT Internal Medicine; ATTEND Internal Medicine
PROC: 5A1D70Z Performance of Urinary Filtration, Intermittent, Less than 6 Hours Per Day (ICD-10-PCS; principal; 2019-01-12)
DX: E11.43 Type 2 diabetes mellitus with diabetic autonomic (poly)neuropathy (principal); N18.6 End stage renal disease; I16.1 Hypertensive emergency; I12.0 Hypertensive chronic kidney disease with stage 5 chronic kidney disease or end stage renal disease; N25.81 Secondary hyperparathyroidism of renal origin; D64.9 Anemia, unspecified; E11.22 Type 2 diabetes mellitus with diabetic chronic kidney disease; E66.9 Obesity, unspecified; E78.5 Hyperlipidemia, unspecified; F12.90 Cannabis use, unspecified, uncomplicated; F32.9 Major depressive disorder, single episode, unspecified; G89.4 Chronic pain syndrome; K31.84 Gastroparesis; L29.9 Pruritus, unspecified; Z88.0 Allergy status to penicillin; Z79.899 Other long term (current) drug therapy; Z82.49 Family history of ischemic heart disease and other diseases of the circulatory system; Z83.3 Family history of diabetes mellitus; Z87.891 Personal history of nicotine dependence; Z99.2 Dependence on renal dialysis; Z71.3 Dietary counseling and surveillance; Z68.25 Body mass index [BMI] 25.0-25.9, adult
CPT/HCPCS: 36415; 71045; 74176; 80048; 80061; 83036; 83880; 84100; 84439; 84443; 84484; 84703; 93005; 93306; 96374; 96375; 96376; 99285; C9113; J2270; J2405; J2501; J2765; J3490; Q0163

== ENCOUNTER 2019-04-01 08:07 | Inpatient (IN) | payer MEDICARE, MEDICAID ==
[~2019-04-01] VITALS: Ht 180.3 cm; Wt 81.2 kg
[~2019-04-01 08:07] MED LIST changes: +RANI-655 PO
[2019-04-01] MEDS ORDERED: FAMOTIDINE 20MG/2ML VIAL IV ONE (08:45)
[2019-04-01] MEDS ORDERED: ONDANSETRON HCL 4MG/2ML INJ IV PRN ×2 (08:45→14:00)
[2019-04-01] MEDS ORDERED: MORPHINE SULFATE 4 MG/ML CPJ (NOT FOR IM USE) IV ONE ×3 (08:45→11:30)
[2019-04-01 09:00] LABS: HEMATOCRIT. 35.7 % (36.0-48.0); HEMOGLOBIN. 11.3 g/dL (12.0-16.0); MEAN CORPUSCULAR HEMOGLOBIN 29.2 pg (28.0-32.0); MEAN CORPUSCULAR VOLUME 92.3 fL (81.0-99.0); MEAN PLATELET VOLUME 7.9 fl (7.4-10.4); PLATELET 157 x1000/uL (130-400); RED BLOOD CELL COUNT 3.87 mill/uL (4.2-5.4); RED CELL DISTRIBUTION WIDTH 16.7 % (11.6-14.6)
[2019-04-01 09:06] LABS: CHLORIDE 100 mEq/L (98-107)
[2019-04-01 09:08] LABS: PROTHROMBIN TIME 10.3 sec (9.6-11.0)
[2019-04-01 09:18] LABS: PLATELET ESTIMATE NORMAL
[2019-04-01] MEDS ORDERED: CLONIDINE 0.2MG TABLET PO ONE (10:15)
[2019-04-01] MEDS ORDERED: LABETALOL 5MG/ML SYR 20 MG/4 ML SYRINGE IV ONE (13:30)
[2019-04-01] MEDS ORDERED: ACETAMINOPHEN 325MG TABLET PO PRN (14:00)
[2019-04-01] MEDS ORDERED: CLONIDINE 0.1MG TABLET PO PRN (14:00)
[2019-04-01] MEDS ORDERED: METOCLOPRAMIDE HCL 10MG/2ML VIAL IV PRN (14:00)
[2019-04-01 15:10] VITALS: BP 179/99
[2019-04-01 15:15] VITALS: BP 179/99
[2019-04-01] MEDS: AMLODIPINE 10MG TABLET PO SCH (16:06)
[2019-04-01] MEDS: MORPHINE SULFATE 2 MG/ML CPJ (NOT FOR IM USE) IV PRN ×2 (16:07→22:22)
[2019-04-01] MEDS ORDERED: HYDRALAZINE 20MG/ML VIAL IV PRN (16:30)
[2019-04-01 17:00] VITALS: BP 133/62
[2019-04-01] MEDS: DIPHENHYDRAMINE 50MG/ML VIAL IV PRN (17:18)
[2019-04-01 20:00] VITALS: BP 156/82
[2019-04-01] MEDS: HYDRALAZINE HCL 100MG TABLET PO SCH (21:12)
[2019-04-02] VITALS: BP 113/64
[2019-04-02] MEDS: DIPHENHYDRAMINE 50MG/ML VIAL IV PRN ×3 (00:54→16:46)
[2019-04-02 08:00] VITALS: BP 165/84
[2019-04-02] MEDS: AMLODIPINE 10MG TABLET PO SCH (09:00)
[2019-04-02] MEDS: HYDRALAZINE HCL 100MG TABLET PO SCH ×2 (09:00→21:39)
[2019-04-02] MEDS: FAMOTIDINE 20MG/2ML VIAL IV SCH (09:22)
[2019-04-02] MEDS: MORPHINE SULFATE 2 MG/ML CPJ (NOT FOR IM USE) IV PRN ×3 (09:22→23:56)
[2019-04-02 11:38] VITALS: BP 148/83
[2019-04-02 16:09] VITALS: BP 170/89
[2019-04-02] MEDS: METOCLOPRAMIDE HCL 5MG TABLET PO SCH ×2 (17:10→21:39)
[2019-04-02 19:39] VITALS: BP 165/80
[2019-04-02 23:58] VITALS: BP 140/62
[2019-04-03] MEDS: DIPHENHYDRAMINE 50MG/ML VIAL IV PRN ×2 (00:43→04:19)
[2019-04-03 03:51] VITALS: BP 142/76
[2019-04-03] MEDS: MORPHINE SULFATE 2 MG/ML CPJ (NOT FOR IM USE) IV PRN ×2 (05:11→10:17)
[2019-04-03] MEDS: METOCLOPRAMIDE HCL 5MG TABLET PO SCH (06:16)
[2019-04-03] MEDS: AMLODIPINE 10MG TABLET PO SCH ×2 (09:00→10:16)
[2019-04-03 09:30] VITALS: BP 136/91
[2019-04-03] MEDS: HYDRALAZINE HCL 100MG TABLET PO SCH ×2 (09:30→10:27)
[2019-04-03] MEDS: FAMOTIDINE 20MG/2ML VIAL IV SCH (10:16)
[2019-04-03 10:56] VITALS: BP 136/91
[2019-04-04] MEDS ORDERED: PARICALCITOL 5 MCG/ML 1ML IV SCH (09:00)
== END 2019-04-03 13:45 | disposition home or self-care (01) | DRG 73 ==
LOC: ER 08:07 → 8WST 12:55 → ENRESERV 14:08
PROVIDERS: ADMIT Hospitalist; ATTEND Hospitalist
PROC: 5A1D70Z Performance of Urinary Filtration, Intermittent, Less than 6 Hours Per Day (ICD-10-PCS; principal; 2019-04-02)
DX: E11.43 Type 2 diabetes mellitus with diabetic autonomic (poly)neuropathy (principal); N18.6 End stage renal disease; I12.0 Hypertensive chronic kidney disease with stage 5 chronic kidney disease or end stage renal disease; N25.81 Secondary hyperparathyroidism of renal origin; K31.84 Gastroparesis; E11.22 Type 2 diabetes mellitus with diabetic chronic kidney disease; F32.9 Major depressive disorder, single episode, unspecified; D63.1 Anemia in chronic kidney disease; Z82.49 Family history of ischemic heart disease and other diseases of the circulatory system; Z87.11 Personal history of peptic ulcer disease; Z91.19 Patient's noncompliance with other medical treatment and regimen; Z99.2 Dependence on renal dialysis; Z83.3 Family history of diabetes mellitus; Z91.15 Patient's noncompliance with renal dialysis; Z88.0 Allergy status to penicillin; Z79.899 Other long term (current) drug therapy
CPT/HCPCS: 36415; 96374; 96375; 96376; 99285; C1893; J1200; J2270; J2405; J3490; J8597

== ENCOUNTER 2019-04-21 16:07 | Inpatient (IN) | payer MEDICARE, MEDICAID ==
[~2019-04-21] VITALS: Ht 180.3 cm; Wt 72.6 kg
[2019-04-21] MEDS ORDERED: ONDANSETRON HCL 4MG/2ML INJ IV STA (17:01)
[2019-04-21] MEDS ORDERED: MAGNESIUM/ALUMINUM HYDROXIDE/SIMETHICONE 30ML UDC PO STA (17:01)
[2019-04-21] MEDS ORDERED: FAMOTIDINE 20MG/2ML VIAL IV STA (17:01)
[2019-04-21] MEDS: MORPHINE SULFATE 4 MG/ML CPJ (NOT FOR IM USE) IV STA ×2 (17:01→18:33)
[2019-04-21] MEDS: HYDRALAZINE 20MG/ML VIAL IV ONE ×2 (17:15→18:33)
[2019-04-21 19:13] LABS: BASOPHILS % 0.2 % (0.0-2.0); EOSINOPHILS % 0.5 % (0.0-5.0); HEMATOCRIT. 33.3 % (36.0-48.0); HEMOGLOBIN. 10.4 g/dL (12.0-16.0); LYMPHOCYTES % 10.8 % (20.0-50.0); MEAN CORPUSCULAR VOLUME 92.8 fL (81.0-99.0); MEAN PLATELET VOLUME 8.5 fl (7.4-10.4); MONOCYTES % 10.3 % (2.0-8.0); NEUTROPHILS % 78.2 % (40.0-76.0); PLATELET 191 x1000/uL (130-400); RED BLOOD CELL COUNT 3.59 mill/uL (4.2-5.4); RED CELL DISTRIBUTION WIDTH 19.4 % (11.6-14.6)
[2019-04-21] MEDS ORDERED: ONDANSETRON HCL 4MG/2ML INJ IV ONE (19:15)
[2019-04-21] MEDS ORDERED: MORPHINE SULFATE 4 MG/ML CPJ (NOT FOR IM USE) IV ONE (19:15)
[2019-04-21 19:20] LABS: CHLORIDE 97 mEq/L (98-107)
[2019-04-21 19:22] LABS: PROTHROMBIN TIME 10.6 sec (9.6-11.0)
[2019-04-21 19:27] LABS: ETHANOL BLOOD < 10 mg/dL
[2019-04-21 20:00] LABS: HCG SCREEN NEGATIVE
[2019-04-21] MEDS ORDERED: CLONIDINE 0.1MG TABLET PO PRN (22:15)
[2019-04-21] MEDS ORDERED: LORAZEPAM 0.5MG TABLET PO PRN (22:15)
[2019-04-21] MEDS ORDERED: DOCUSATE SODIUM 100MG CAPSULE PO PRN (22:15)
[2019-04-21] MEDS ORDERED: NITROGLYCERIN 0.4MG TABLET SL SL PRN (22:15)
[2019-04-21] MEDS ORDERED: ACETAMINOPHEN 325MG TABLET PO PRN (22:15)
[2019-04-21] MEDS ORDERED: DIPHENHYDRAMINE 50MG/ML VIAL IV PRN (22:15)
[2019-04-21] MEDS ORDERED: NA PHOS,M-B/NA PHOS,DI-BA ENEMA 118ML PR PRN (22:15)
[2019-04-21] MEDS ORDERED: TRAMADOL 50MG TABLET PO PRN (22:15)
[2019-04-21] MEDS ORDERED: MAGNESIUM/ALUMINUM HYDROXIDE/SIMETHICONE 30ML UDC PO PRN (22:15)
[2019-04-21] MEDS ORDERED: GUAIFENESIN 200MG/10ML SUGAR FREE UDC PO PRN (22:15)
[2019-04-21] MEDS ORDERED: HYDRALAZINE HCL 25MG TABLET PO NR (23:00)
[2019-04-21] MEDS ORDERED: ZOLPIDEM TARTRATE 5MG TABLET PO PRN (23:00)
[2019-04-21 23:55] VITALS: BP 228/117
[2019-04-22] MEDS ORDERED: ONDANSETRON HCL 4MG/2ML INJ IV PRN
[2019-04-22] MEDS: NIFEDIPINE XL 60MG TAB PO SCH ×2 (00:15→09:00)
[2019-04-22] MEDS ORDERED: IPRATROPIUM/ALBUTEROL 0.5-3(2.5)MG/3ML NEB HHN SCH (00:15)
[2019-04-22 04:00] VITALS: BP 146/75
[2019-04-22] MEDS ORDERED: HYDRALAZINE HCL 50MG TABLET PO SCH (06:00)
[2019-04-22] MEDS ORDERED: METOCLOPRAMIDE 10MG/10 ML UDC PO SCH (07:40)
[2019-04-22] MEDS ORDERED: SUCRALFATE 1 G/10 ML UDC PO SCH (07:40)
[2019-04-22] MEDS ORDERED: SEVELAMER CARBONATE 800 MG TABLET PO SCH (08:10)
[2019-04-22] MEDS ORDERED: FOLIC ACID/VITAMIN B COMP W-C TABLET PO SCH (09:00)
[2019-04-22] MEDS ORDERED: FAMOTIDINE 20MG TABLET PO SCH (09:00)
== END 2019-04-22 09:45 | disposition left against medical advice (07) | DRG 682 ==
LOC: ER 16:07 → EDBEDREQ 19:58 → 7WST 20:10 → EDBEDREQTM 20:15 → EDBEDREQ 20:15 → ENRESERV 22:38
PROVIDERS: ADMIT Internal Medicine; ATTEND Internal Medicine
DX: I12.0 Hypertensive chronic kidney disease with stage 5 chronic kidney disease or end stage renal disease (principal); N18.6 End stage renal disease; E87.1 Hypo-osmolality and hyponatremia; E78.00 Pure hypercholesterolemia, unspecified; D63.8 Anemia in other chronic diseases classified elsewhere; Z53.21 Procedure and treatment not carried out due to patient leaving prior to being seen by health care provider; K29.70 Gastritis, unspecified, without bleeding; Z88.0 Allergy status to penicillin; Z76.5 Malingerer [conscious simulation]; Z82.49 Family history of ischemic heart disease and other diseases of the circulatory system; Z91.19 Patient's noncompliance with other medical treatment and regimen; Z99.2 Dependence on renal dialysis
CPT/HCPCS: 36415; 71045; 74018; 80320; 83036; 83880; 84484; 84703; 93005; 96374; 96375; 99285; J0360; J1200; J2270; J2405; J3490; G0480

== ENCOUNTER 2019-05-16 15:37 | Emergency (ER) | payer MEDICARE, MEDICAID ==
[~2019-05-16] VITALS: Ht 170.2 cm; Wt 75.0 kg
[~2019-05-16 15:37] MED LIST changes: -AMLO10TA4 PO; -HYDR-4134 PO
[2019-05-16] MEDS ORDERED: MORPHINE SULFATE 4 MG/ML CPJ (NOT FOR IM USE) IV STA (16:17)
[2019-05-16] MEDS ORDERED: ONDANSETRON HCL 4MG/2ML INJ IV STA (16:17)
[2019-05-16 17:27] LABS: BASOPHILS % 0.4 % (0.0-2.0); EOSINOPHILS % 0.5 % (0.0-5.0); HEMATOCRIT. 30.5 % (36.0-48.0); HEMOGLOBIN. 9.8 g/dL (12.0-16.0); LYMPHOCYTES % 14.3 % (20.0-50.0); MEAN CORPUSCULAR HEMOGLOBIN 29.4 pg (28.0-32.0); MEAN CORPUSCULAR VOLUME 91.8 fL (81.0-99.0); MEAN PLATELET VOLUME 7.7 fl (7.4-10.4); NEUTROPHILS % 75.8 % (40.0-76.0); PLATELET 172 x1000/uL (130-400); RED BLOOD CELL COUNT 3.32 mill/uL (4.2-5.4); RED CELL DISTRIBUTION WIDTH 18.6 % (11.6-14.6)
[2019-05-16 17:31] LABS: CHLORIDE 101 mEq/L (98-107); PROTHROMBIN TIME 10.1 sec (9.6-11.0)
[2019-05-16 17:38] LABS: HCG SCREEN NEGATIVE
[2019-05-16] MEDS ORDERED: ACETAMINOPHEN 325MG TABLET PO ONE (18:30)
[2019-05-16 19:10] VITALS: BP 166/84
== END 2019-05-16 19:15 | disposition home or self-care (01) ==
LOC: ER 15:37
DX: G89.29 Other chronic pain (principal); R10.9 Unspecified abdominal pain; R11.2 Nausea with vomiting, unspecified; I12.0 Hypertensive chronic kidney disease with stage 5 chronic kidney disease or end stage renal disease; N18.6 End stage renal disease; Z99.2 Dependence on renal dialysis
CPT/HCPCS: 36415; 80053; 83690; 84703; 85025; 85610; 96374; 96375; 99283; J2270; J2405

== ENCOUNTER 2019-05-25 04:45 | Emergency (ER) | payer MEDICARE, MEDICAID ==
[~2019-05-25] VITALS: Ht 175.3 cm; Wt 91.0 kg
[2019-05-25] MEDS ORDERED: DICYCLOMINE 10 MG/5 ML ORAL SYR PO STA (06:23)
[2019-05-25] MEDS ORDERED: ONDANSETRON HCL 4MG/2ML INJ IV STA (06:23)
[2019-05-25] MEDS ORDERED: MAGNESIUM/ALUMINUM HYDROXIDE/SIMETHICONE 30ML UDC PO STA (06:23)
[2019-05-25] MEDS ORDERED: VISCOUS LIDOCAINE 2% 15 ML UDC PO STA (06:23)
[2019-05-25] MEDS ORDERED: HYDRALAZINE HCL 100MG TABLET PO ONE (06:30)
[2019-05-25] MEDS ORDERED: HYDRALAZINE 20MG/ML VIAL IV ONE ×2 (06:30→09:15)
[2019-05-25 08:22] LABS: HEMATOCRIT. 32.4 % (36.0-48.0); HEMOGLOBIN. 10.4 g/dL (12.0-16.0); MEAN CORPUSCULAR HEMOGLOBIN 29.8 pg (28.0-32.0); MEAN CORPUSCULAR VOLUME 92.8 fL (81.0-99.0); MEAN PLATELET VOLUME 7.1 fl (7.4-10.4); PLATELET 167 x1000/uL (130-400); RED BLOOD CELL COUNT 3.49 mill/uL (4.2-5.4); RED CELL DISTRIBUTION WIDTH 19.5 % (11.6-14.6)
[2019-05-25 08:31] LABS: CHLORIDE 100 mEq/L (98-107)
[2019-05-25 08:46] LABS: HCG SCREEN NEGATIVE
[2019-05-25 08:51] LABS: PLATELET ESTIMATE NORMAL
[2019-05-25] MEDS ORDERED: LORAZEPAM 2MG/ML CPJ IV ONE (09:15)
[2019-05-25] MEDS ORDERED: METOCLOPRAMIDE HCL 10MG/2ML VIAL IV ONE (09:15)
[2019-05-25 11:00] VITALS: BP 178/98
[2019-05-25] MEDS ORDERED: ONDANSETRON 4MG ODT PO ONE (12:45)
== END 2019-05-25 13:00 | disposition home or self-care (01) ==
LOC: ER 04:45
DX: R10.33 Periumbilical pain (principal); I12.0 Hypertensive chronic kidney disease with stage 5 chronic kidney disease or end stage renal disease; N18.6 End stage renal disease; Z99.2 Dependence on renal dialysis; Z88.0 Allergy status to penicillin; Z79.899 Other long term (current) drug therapy
CPT/HCPCS: 36415; 71045; 74176; 80053; 83690; 84703; 85025; 93005; 96374; 96375; 96376; 99284; J0360; J2060; J2405; J2765; Q0162

== ENCOUNTER 2019-06-19 17:21 | Inpatient (IN) | payer MEDICARE, MEDICAID ==
[~2019-06-19] VITALS: Ht 180.3 cm; Wt 76.4 kg
[2019-06-19] MEDS ORDERED: ONDANSETRON HCL 4MG/2ML INJ IV STA (17:48)
[2019-06-19] MEDS ORDERED: MORPHINE SULFATE 4 MG/ML CPJ (NOT FOR IM USE) IV STA (17:48)
[2019-06-19] MEDS ORDERED: FAMOTIDINE 20MG/2ML VIAL IV ONE (18:00)
[2019-06-19] MEDS ORDERED: DIPHENHYDRAMINE 50MG/ML VIAL IV ONE (18:00)
[2019-06-19 18:39] LABS: BASOPHILS % 0.7 % (0.0-2.0); EOSINOPHILS % 0.7 % (0.0-5.0); HEMATOCRIT. 29.5 % (36.0-48.0); HEMOGLOBIN. 9.2 g/dL (12.0-16.0); LYMPHOCYTES % 19.8 % (20.0-50.0); MEAN CORPUSCULAR HEMOGLOBIN 29.1 pg (28.0-32.0); MEAN CORPUSCULAR VOLUME 93.2 fL (81.0-99.0); MEAN PLATELET VOLUME 8.2 fl (7.4-10.4); MONOCYTES % 7.8 % (2.0-8.0); PLATELET 164 x1000/uL (130-400); RED BLOOD CELL COUNT 3.16 mill/uL (4.2-5.4); RED CELL DISTRIBUTION WIDTH 18.5 % (11.6-14.6)
[2019-06-19 18:42] LABS: CHLORIDE 100 mEq/L (98-107)
[2019-06-19 18:44] LABS: PARTIAL THROMBOPLASTIN TIME 29.5 sec (23.4-31.0); PROTHROMBIN TIME 10.3 sec (9.6-11.0)
[2019-06-19 18:46] LABS: ETHANOL BLOOD < 10 mg/dL
[2019-06-19] MEDS ORDERED: MORPHINE SULFATE 4 MG/ML CPJ (NOT FOR IM USE) IV ONE (19:30)
[2019-06-19] MEDS ORDERED: HYDRALAZINE 20MG/ML VIAL IV ONE ×2 (19:30→22:30)
[2019-06-19] MEDS ORDERED: ACETAMINOPHEN 325MG TABLET PO PRN (22:15)
[2019-06-19] MEDS ORDERED: MAGNESIUM/ALUMINUM HYDROXIDE/SIMETHICONE 30ML UDC PO PRN (22:15)
[2019-06-19] MEDS ORDERED: DEXTROSE 50% WATER 50ML SYRINGE IV PRN ×2 (22:15)
[2019-06-19] MEDS ORDERED: DOCUSATE SODIUM 100MG CAPSULE PO PRN (22:15)
[2019-06-19] MEDS ORDERED: ONDANSETRON HCL 4MG/2ML INJ IV PRN (22:15)
[2019-06-19 23:36] VITALS: BP 177/84
[2019-06-19 23:37] VITALS: BP 177/84
[2019-06-20] MEDS: CLONIDINE 0.1MG TABLET PO PRN (00:19)
[2019-06-20] MEDS: DIPHENHYDRAMINE 50MG/ML VIAL IV PRN ×3 (00:20→23:17)
[2019-06-20] MEDS: HYDROCODONE/ACETAMINOPHEN 5/325MG TABLET PO PRN ×2 (00:20→11:24)
[2019-06-20] MEDS: METOCLOPRAMIDE HCL 5MG TABLET PO SCH ×4 (00:20→18:45)
[2019-06-20] MEDS: OMEPRAZOLE 20MG CAPSULE EXTENDED RELEASE PO SCH (05:26)
[2019-06-20] MEDS ORDERED: BLOOD SUGAR DIAGNOSTIC STRIP TEST SCH (07:20)
[2019-06-20] MEDS ORDERED: INSULIN LISPRO 100 UNITS/ML SUBCUT SCH (07:50)
[2019-06-20 08:30] VITALS: BP 170/90
[2019-06-20] MEDS: LOSARTAN POTASSIUM 100 MG TABLET PO SCH ×2 (08:49→18:48)
[2019-06-20] MEDS: NIFEDIPINE XL 60MG TAB PO SCH ×3 (08:49→21:00)
[2019-06-20] MEDS: ENOXAPARIN 30MG/0.3ML SYR SUBCUT SCH (09:00)
[2019-06-20] MEDS ORDERED: HYDRALAZINE HCL 50MG TABLET PO SCH (10:00)
[2019-06-20 12:00] VITALS: BP 150/80
[2019-06-20] MEDS: ISOSORB DINIT/HYDRALAZINE HCL 20/37.5MG TABLET PO SCH ×3 (15:02→22:00)
[2019-06-20 16:00] VITALS: BP 157/82
[2019-06-20] MEDS ORDERED: DIPHENHYDRAMINE 50MG/ML VIAL IV NR (18:30)
[2019-06-20 20:00] VITALS: BP 139/70
[2019-06-20] MEDS ORDERED: ATORVASTATIN CALCIUM 20MG TABLET PO SCH (21:00)
[2019-06-21] VITALS: BP 139/79
[2019-06-21 04:00] VITALS: BP 142/75
[2019-06-21] MEDS: METOCLOPRAMIDE HCL 5MG TABLET PO SCH ×3 (05:31→12:00)
[2019-06-21] MEDS: ISOSORB DINIT/HYDRALAZINE HCL 20/37.5MG TABLET PO SCH ×2 (05:31→14:00)
[2019-06-21] MEDS: OMEPRAZOLE 20MG CAPSULE EXTENDED RELEASE PO SCH (06:47)
[2019-06-21] MEDS: LOSARTAN POTASSIUM 100 MG TABLET PO SCH (09:00)
[2019-06-21] MEDS: ENOXAPARIN 30MG/0.3ML SYR SUBCUT SCH (09:00)
[2019-06-21] MEDS: NIFEDIPINE XL 60MG TAB PO SCH (09:00)
[2019-06-21 10:51] LABS: BASOPHILS % 0.2 % (0.0-2.0); EOSINOPHILS % 1.7 % (0.0-5.0); HEMATOCRIT. 25.9 % (36.0-48.0); HEMOGLOBIN. 8.3 g/dL (12.0-16.0); LYMPHOCYTES % 17.1 % (20.0-50.0); MEAN CORPUSCULAR HEMOGLOBIN 29.5 pg (28.0-32.0); MEAN CORPUSCULAR VOLUME 92.4 fL (81.0-99.0); MEAN PLATELET VOLUME 7.7 fl (7.4-10.4); MONOCYTES % 9.3 % (2.0-8.0); NEUTROPHILS % 71.7 % (40.0-76.0); PLATELET 124 x1000/uL (130-400); RED BLOOD CELL COUNT 2.81 mill/uL (4.2-5.4); RED CELL DISTRIBUTION WIDTH 17.9 % (11.6-14.6)
[2019-06-21] MEDS: CLONIDINE 0.1MG TABLET PO PRN (10:57)
[2019-06-21] MEDS: DIPHENHYDRAMINE 50MG/ML VIAL IV PRN (10:57)
[2019-06-21] MEDS ORDERED: CLON0.1T PO (13:24)
[2019-06-21 13:25] VITALS: BP 135/72
== END 2019-06-21 15:03 | disposition home or self-care (01) | DRG 682 ==
LOC: ER 17:21 → 6WST 19:56 → EDBEDREQ 20:00 → EDBEDREQTM 20:00 → ENRESERV 21:09
PROVIDERS: ADMIT Family Medicine Adult Medicine; ATTEND Family Medicine Adult Medicine
PROC: 5A1D70Z Performance of Urinary Filtration, Intermittent, Less than 6 Hours Per Day (ICD-10-PCS; principal; 2019-06-20)
DX: I12.0 Hypertensive chronic kidney disease with stage 5 chronic kidney disease or end stage renal disease (principal); N18.6 End stage renal disease; K86.1 Other chronic pancreatitis; N25.81 Secondary hyperparathyroidism of renal origin; I16.0 Hypertensive urgency; E11.22 Type 2 diabetes mellitus with diabetic chronic kidney disease; K21.9 Gastro-esophageal reflux disease without esophagitis; E11.43 Type 2 diabetes mellitus with diabetic autonomic (poly)neuropathy; K31.84 Gastroparesis; E78.5 Hyperlipidemia, unspecified; F32.9 Major depressive disorder, single episode, unspecified; Z79.899 Other long term (current) drug therapy; Z99.2 Dependence on renal dialysis; Z82.49 Family history of ischemic heart disease and other diseases of the circulatory system; Z88.0 Allergy status to penicillin
CPT/HCPCS: 36415; 71045; 76700; 80048; 80320; 83605; 83880; 84484; 93005; 99285; J0360; J1200; J1650; J2270; J2405; J3490; J8597; G0480

== ENCOUNTER 2019-07-01 04:37 | Inpatient (IN) | payer MEDICARE, MEDICAID ==
[~2019-07-01] VITALS: Ht 172.7 cm; Wt 80.3 kg
[~2019-07-01 04:37] MED LIST changes: +CLON0.1T PO
[2019-07-01] MEDS ORDERED: ONDANSETRON 4MG ODT PO ONE (06:30)
[2019-07-01] MEDS ORDERED: METOCLOPRAMIDE HCL 10MG/2ML VIAL IM ONE (06:30)
[2019-07-01] MEDS ORDERED: MORPHINE SULFATE 2 MG/ML CPJ (NOT FOR IM USE) IV ONE ×2 (07:00→09:15)
[2019-07-01] MEDS ORDERED: MAGNESIUM/ALUMINUM HYDROXIDE/SIMETHICONE 30ML UDC PO ONE (07:00)
[2019-07-01] MEDS ORDERED: FAMOTIDINE 20MG/2ML VIAL IV ONE (07:00)
[2019-07-01 07:12] LABS: BASOPHILS % 0.8 % (0.0-2.0); CHLORIDE 102 mEq/L (98-107); EOSINOPHILS % 1.3 % (0.0-5.0); HEMATOCRIT. 27.5 % (36.0-48.0); HEMOGLOBIN. 8.8 g/dL (12.0-16.0); LYMPHOCYTES % 16.1 % (20.0-50.0); MEAN CORPUSCULAR HEMOGLOBIN 29.2 pg (28.0-32.0); MEAN CORPUSCULAR VOLUME 91.2 fL (81.0-99.0); MONOCYTES % 11.3 % (2.0-8.0); NEUTROPHILS % 70.5 % (40.0-76.0); PLATELET 156 x1000/uL (130-400); RED BLOOD CELL COUNT 3.02 mill/uL (4.2-5.4); RED CELL DISTRIBUTION WIDTH 17.3 % (11.6-14.6)
[2019-07-01] MEDS ORDERED: HYDRALAZINE HCL 10MG TABLET PO ONE (07:45)
[2019-07-01] MEDS ORDERED: ONDANSETRON HCL 4MG/2ML INJ IV ONE (08:30)
[2019-07-01] MEDS ORDERED: HYDRALAZINE 20MG/ML VIAL IV ONE (08:30)
[2019-07-01 10:42] LABS: HCG SCREEN NEGATIVE
[2019-07-01] MEDS ORDERED: HALOPERIDOL LACTATE 5MG/ML VIAL IM ONE (11:15)
[2019-07-01] MEDS ORDERED: HYDROCODONE/ACETAMINOPHEN 5/325MG TABLET PO PRN (12:00)
[2019-07-01] MEDS ORDERED: ENOXAPARIN 40MG/0.4ML SYR SUBCUT SCH (12:00)
[2019-07-01] MEDS ORDERED: ACETAMINOPHEN 325MG TABLET PO PRN (12:00)
[2019-07-01] MEDS ORDERED: DIPHENHYDRAMINE 50MG/ML VIAL IV PRN (12:00)
[2019-07-01] MEDS ORDERED: DOCUSATE SODIUM 100MG CAPSULE PO PRN (12:00)
[2019-07-01] MEDS ORDERED: ONDANSETRON HCL 4MG/2ML INJ IV PRN (12:00)
[2019-07-01] MEDS ORDERED: GUAIFENESIN 200MG/10ML SUGAR FREE UDC PO PRN (12:00)
[2019-07-01] MEDS: ENOXAPARIN 30MG/0.3ML SYR SUBCUT SCH (14:30)
[2019-07-01] MEDS: LISINOPRIL 20MG TABLET PO SCH (14:32)
[2019-07-01] MEDS ORDERED: IOHEXOL-300 100 ML BOTTLE ONE (15:45)
[2019-07-01] MEDS ORDERED: HYDROMORPHONE HCL/PF 2MG/ML CPJ IV PRN (17:00)
[2019-07-01] MEDS: CLONIDINE 0.1MG TABLET PO PRN ×2 (18:13→21:50)
[2019-07-01 18:45] VITALS: BP 221/132
[2019-07-01] MEDS ORDERED: AMLODIPINE 10MG TABLET PO NR (19:00)
[2019-07-01] MEDS: HYDRALAZINE HCL 100MG TABLET PO SCH (19:27)
[2019-07-01 20:00] VITALS: BP 162/62
[2019-07-02 08:00] VITALS: BP 181/94
[2019-07-02] MEDS: ENOXAPARIN 30MG/0.3ML SYR SUBCUT SCH (09:00)
[2019-07-02] MEDS ORDERED: AMLODIPINE 10MG TABLET PO SCH (09:00)
[2019-07-02] MEDS: HYDRALAZINE HCL 100MG TABLET PO SCH (09:32)
[2019-07-02] MEDS: LISINOPRIL 20MG TABLET PO SCH (09:33)
[2019-07-02 12:00] VITALS: BP 160/78
[2019-07-02] MEDS ORDERED: METOCLOPRAMIDE HCL 10MG TABLET PO SCH (12:40)
[2019-07-02] MEDS ORDERED: EPOETIN ALFA 10000UNITS/ML VIAL SUBCUT SCH (21:00)
== END 2019-07-02 13:33 | disposition left against medical advice (07) | DRG 291 ==
LOC: ER 04:37 → 7WST 11:02 → CANRESERV 11:37 → ENRESERV 11:37 → EDBEDREQSVC 12:05 → ENRESERV 17:13
PROVIDERS: ADMIT Hospitalist; ATTEND Hospitalist
PROC: 5A1D70Z Performance of Urinary Filtration, Intermittent, Less than 6 Hours Per Day (ICD-10-PCS; principal; 2019-07-02)
DX: I13.2 Hypertensive heart and chronic kidney disease with heart failure and with stage 5 chronic kidney disease, or end stage renal disease (principal); N18.6 End stage renal disease; I50.33 Acute on chronic diastolic (congestive) heart failure; N25.81 Secondary hyperparathyroidism of renal origin; E11.22 Type 2 diabetes mellitus with diabetic chronic kidney disease; E11.43 Type 2 diabetes mellitus with diabetic autonomic (poly)neuropathy; D63.1 Anemia in chronic kidney disease; K31.84 Gastroparesis; F32.9 Major depressive disorder, single episode, unspecified; G89.4 Chronic pain syndrome; Z91.15 Patient's noncompliance with renal dialysis; Z91.19 Patient's noncompliance with other medical treatment and regimen; Z99.2 Dependence on renal dialysis; Z88.0 Allergy status to penicillin; Z79.4 Long term (current) use of insulin
CPT/HCPCS: 36415; 74176; 84484; 84703; 93005; 99285; J0360; J1630; J1650; J2270; J2405; J2765; J3490; J8597; Q0162; Q9967

== ENCOUNTER 2019-07-20 07:34 | Emergency (ER) | payer MEDICARE, MEDICAID ==
[~2019-07-20] VITALS: Ht 172.7 cm; Wt 80.0 kg
[2019-07-20] MEDS ORDERED: FAMOTIDINE 20MG/2ML VIAL IV STA (07:47)
[2019-07-20] MEDS ORDERED: ONDANSETRON HCL 4MG/2ML INJ IV STA (07:47)
[2019-07-20] MEDS ORDERED: MORPHINE SULFATE 4 MG/ML CPJ (NOT FOR IM USE) IV STA (07:47)
[2019-07-20] MEDS ORDERED: HYDRALAZINE 20MG/ML VIAL IV ONE (09:00)
[2019-07-20 10:07] LABS: CHLORIDE 97 mEq/L (98-107)
[2019-07-20 10:30] LABS: HCG SCREEN NEGATIVE
[2019-07-20 13:00] VITALS: BP 164/82
== END 2019-07-20 14:35 | disposition home or self-care (01) ==
LOC: ER 08:23
DX: I12.0 Hypertensive chronic kidney disease with stage 5 chronic kidney disease or end stage renal disease (principal); N18.6 End stage renal disease; Z99.2 Dependence on renal dialysis; Z79.899 Other long term (current) drug therapy; Z88.0 Allergy status to penicillin
CPT/HCPCS: 36415; 80053; 83690; 84484; 84703; 85610; 93005; 96374; 96375; 99284; J0360; J2270; J2405; J3490

== ENCOUNTER 2019-08-02 09:08 | Inpatient (IN) | payer MEDICARE, MEDICAID ==
[~2019-08-02] VITALS: Ht 180.3 cm; Wt 78.5 kg
[~2019-08-02 09:08] MED LIST changes: +NIFE-32 PO; -NIFE60TA64 PO; +OMEP40CA12 PO; -OMEP40CA34 PO
[2019-08-02 10:33] LABS: BASOPHILS % 0.8 % (0.0-2.0); HEMOGLOBIN. 9.9 g/dL (12.0-16.0); LYMPHOCYTES % 8.1 % (20.0-50.0); MEAN CORPUSCULAR HEMOGLOBIN 29.6 pg (28.0-32.0); MEAN PLATELET VOLUME 7.5 fl (7.4-10.4); MONOCYTES % 6.5 % (2.0-8.0); NEUTROPHILS % 82.6 % (40.0-76.0); PLATELET 166 x1000/uL (130-400); RED BLOOD CELL COUNT 3.33 mill/uL (4.2-5.4)
[2019-08-02 10:38] LABS: CHLORIDE 99 mEq/L (98-107)
[2019-08-02 10:41] LABS: PROTHROMBIN TIME 10.1 sec (9.6-11.0)
[2019-08-02] MEDS ORDERED: SODIUM CHLORIDE 0.9% 1000ML BAG (SEPSIS BOLUS) IV ONE (11:00)
[2019-08-02] MEDS ORDERED: MORPHINE SULFATE 4 MG/ML CPJ (NOT FOR IM USE) IV ONE ×2 (11:00→14:00)
[2019-08-02] MEDS ORDERED: LISINOPRIL 10MG TABLET PO ONE (11:45)
[2019-08-02 17:00] VITALS: BP 160/84
[2019-08-02 20:00] VITALS: BP 204/110
[2019-08-02] MEDS: DIPHENHYDRAMINE 25MG CAPSULE PO PRN (20:07)
[2019-08-02] MEDS: MORPHINE SULFATE 2 MG/ML CPJ (NOT FOR IM USE) IV PRN (20:08)
[2019-08-02] MEDS ORDERED: ONDANSETRON HCL 4MG/2ML INJ IV PRN (21:00)
[2019-08-02] MEDS ORDERED: IPRATROPIUM/ALBUTEROL 0.5-3(2.5)MG/3ML NEB HHN PRN (21:00)
[2019-08-02] MEDS ORDERED: HYDROCODONE/ACETAMINOPHEN 10/325MG TABLET PO PRN (21:00)
[2019-08-02] MEDS ORDERED: MAGNESIUM/ALUMINUM HYDROXIDE/SIMETHICONE 30ML UDC PO PRN (21:00)
[2019-08-02] MEDS ORDERED: DIPHENHYDRAMINE 50MG/ML VIAL IV PRN (21:00)
[2019-08-02] MEDS ORDERED: ACETAMINOPHEN 325MG TABLET PO PRN (21:00)
[2019-08-02] MEDS ORDERED: GUAIFENESIN 200MG/10ML SUGAR FREE UDC PO PRN (21:00)
[2019-08-02] MEDS ORDERED: HYDROCODONE/ACETAMINOPHEN 5/325MG TABLET PO PRN (21:00)
[2019-08-02] MEDS ORDERED: ACETAMINOPHEN 650MG SUPP PR PRN (21:00)
[2019-08-02] MEDS ORDERED: NA PHOS,M-B/NA PHOS,DI-BA ENEMA 118ML PR PRN (21:00)
[2019-08-02] MEDS ORDERED: ACETAMINOPHEN 650MG/20.3ML UDC GT PRN (21:00)
[2019-08-02] MEDS ORDERED: DOCUSATE SODIUM 100MG CAPSULE PO PRN (21:00)
[2019-08-02] MEDS: ENOXAPARIN 30MG/0.3ML SYR SUBCUT SCH (21:30)
[2019-08-02] MEDS: HYDRALAZINE HCL 50MG TABLET PO SCH (21:41)
[2019-08-02] MEDS: CLONIDINE 0.1MG TABLET PO SCH (21:43)
[2019-08-02] MEDS: SODIUM CHLORIDE 0.9% INJ 3ML FLUSH IVF SCH (21:43)
[2019-08-03] VITALS: BP 196/114
[2019-08-03 02:30] VITALS: BP 196/114
[2019-08-03] MEDS: MORPHINE SULFATE 2 MG/ML CPJ (NOT FOR IM USE) IV PRN ×4 (02:53→20:18)
[2019-08-03] MEDS: DIPHENHYDRAMINE 25MG CAPSULE PO PRN ×2 (02:53→20:16)
[2019-08-03] MEDS: CLONIDINE 0.1MG TABLET PO PRN (02:54)
[2019-08-03] MEDS: SODIUM CHLORIDE 0.9% INJ 3ML FLUSH IVF SCH ×3 (05:08→22:00)
[2019-08-03] MEDS: CLONIDINE 0.1MG TABLET PO SCH ×2 (09:00→20:19)
[2019-08-03] MEDS: NIFEDIPINE XL 60MG TAB PO SCH ×2 (09:00→20:19)
[2019-08-03] MEDS: HYDRALAZINE HCL 50MG TABLET PO SCH ×2 (09:00→20:19)
[2019-08-03 10:30] VITALS: BP 191/108
[2019-08-03 10:38] VITALS: BP 191/108
[2019-08-03] MEDS: LOSARTAN POTASSIUM 100 MG TABLET PO SCH (10:39)
[2019-08-03 16:00] VITALS: BP_SYST 116; BP_SYST 193; BP_DIAS 109; BP_DIAS 83
[2019-08-03 16:41] LABS: BASOPHILS % 0.8 % (0.0-2.0); EOSINOPHILS % 4.3 % (0.0-5.0); HEMATOCRIT. 24.8 % (36.0-48.0); HEMOGLOBIN. 7.8 g/dL (12.0-16.0); LYMPHOCYTES % 23.2 % (20.0-50.0); MEAN CORPUSCULAR HEMOGLOBIN 29.6 pg (28.0-32.0); MEAN CORPUSCULAR VOLUME 93.6 fL (81.0-99.0); MEAN PLATELET VOLUME 8.5 fl (7.4-10.4); MONOCYTES % 8.2 % (2.0-8.0); NEUTROPHILS % 63.5 % (40.0-76.0); PLATELET 122 x1000/uL (130-400); RED BLOOD CELL COUNT 2.65 mill/uL (4.2-5.4); RED CELL DISTRIBUTION WIDTH 18.3 % (11.6-14.6)
[2019-08-03 16:45] LABS: CHLORIDE 103 mEq/L (98-107)
[2019-08-03 16:52] LABS: LDL CHOLESTEROL 131 mg/dL (5-100)
[2019-08-03 16:53] LABS: HDL CHOLESTEROL 28 mg/dL (40-59)
[2019-08-03 20:00] VITALS: BP 216/120
[2019-08-03 20:34] LABS: HEMATOCRIT 26.9 % (36.0-48.0); HEMOGLOBIN 8.5 g/dL (12.0-16.0); MEAN CORPUSCULAR HEMOGLOBIN 29.5 pg (28.0-32.0); MEAN CORPUSCULAR VOLUME 93.6 fL (81.0-99.0); PLATELET 107 x1000/uL (130-400); RED BLOOD CELL COUNT 2.88 mill/uL (4.2-5.4); RED CELL DISTRIBUTION WIDTH 18.5 % (11.6-14.6)
[2019-08-03] MEDS: ENOXAPARIN 30MG/0.3ML SYR SUBCUT SCH (21:30)
[2019-08-04] VITALS: BP 201/87
[2019-08-04] MEDS: DIPHENHYDRAMINE 25MG CAPSULE PO PRN ×2 (00:58→05:17)
[2019-08-04] MEDS: CLONIDINE 0.1MG TABLET PO PRN (00:58)
[2019-08-04] MEDS: MORPHINE SULFATE 2 MG/ML CPJ (NOT FOR IM USE) IV PRN ×2 (00:59→05:17)
[2019-08-04 04:00] VITALS: BP 146/83
[2019-08-04] MEDS: SODIUM CHLORIDE 0.9% INJ 3ML FLUSH IVF SCH (05:17)
[2019-08-04] MEDS: HYDRALAZINE HCL 50MG TABLET PO SCH (09:00)
[2019-08-04] MEDS: NIFEDIPINE XL 60MG TAB PO SCH (09:00)
[2019-08-04] MEDS: LOSARTAN POTASSIUM 100 MG TABLET PO SCH (09:00)
[2019-08-04] MEDS: CLONIDINE 0.1MG TABLET PO SCH (09:00)
[2019-08-04 09:27] VITALS: BP 146/83
[2019-08-04] MEDS ORDERED: EPOETIN ALFA 10000UNITS/ML VIAL SUBCUT SCH (21:00)
== END 2019-08-04 11:30 | disposition home or self-care (01) | DRG 391 ==
LOC: ER 09:21 → 8WST 13:53 → EDBEDREQ 13:55 → EDBEDREQTM 13:55 → CANRESERV 14:54 → ENRESERV 14:54
PROVIDERS: ADMIT Family Medicine; ATTEND Family Medicine
PROC: 5A1D70Z Performance of Urinary Filtration, Intermittent, Less than 6 Hours Per Day (ICD-10-PCS; principal; 2019-08-02)
DX: K31.84 Gastroparesis (principal); N18.6 End stage renal disease; N25.81 Secondary hyperparathyroidism of renal origin; I12.0 Hypertensive chronic kidney disease with stage 5 chronic kidney disease or end stage renal disease; E11.43 Type 2 diabetes mellitus with diabetic autonomic (poly)neuropathy; D64.9 Anemia, unspecified; E11.22 Type 2 diabetes mellitus with diabetic chronic kidney disease; E11.51 Type 2 diabetes mellitus with diabetic peripheral angiopathy without gangrene; F32.9 Major depressive disorder, single episode, unspecified; E11.40 Type 2 diabetes mellitus with diabetic neuropathy, unspecified; E87.5 Hyperkalemia; Z87.19 Personal history of other diseases of the digestive system; Z87.891 Personal history of nicotine dependence; Z99.2 Dependence on renal dialysis; Z82.49 Family history of ischemic heart disease and other diseases of the circulatory system; Z79.899 Other long term (current) drug therapy; Z88.0 Allergy status to penicillin
CPT/HCPCS: 36415; 74176; 80053; 80061; 83605; 85025; 85027; 85651; 93005; 96361; 96374; 96376; 99285; J1650; J2270; J7030; Q0163

== ENCOUNTER 2019-09-02 06:22 | Emergency (ER) | payer MEDICARE, MEDICAID ==
[~2019-09-02] VITALS: Ht 167.6 cm; Wt 76.0 kg
[~2019-09-02 06:22] MED LIST changes: -NIFE-32 PO; +NIFE60TA64 PO; -OMEP40CA12 PO; +OMEP40CA34 PO
[2019-09-02] MEDS ORDERED: FAMOTIDINE 20MG/2ML VIAL IV STA (06:47)
[2019-09-02] MEDS ORDERED: SODIUM CHLORIDE 0.9% 1,000 ML IV ONE (06:47)
[2019-09-02] MEDS ORDERED: MORPHINE SULFATE 4 MG/ML CPJ (NOT FOR IM USE) IV STA (06:47)
[2019-09-02] MEDS ORDERED: ONDANSETRON HCL 4MG/2ML INJ IV STA (06:47)
[2019-09-02] MEDS ORDERED: LORAZEPAM 2MG/ML CPJ IV ONE (07:00)
[2019-09-02 08:25] LABS: BASOPHILS % 0.6 % (0.0-2.0); EOSINOPHILS % 0.9 % (0.0-5.0); HEMOGLOBIN. 8.5 g/dL (12.0-16.0); MEAN CORPUSCULAR HEMOGLOBIN 29.5 pg (28.0-32.0); MEAN CORPUSCULAR VOLUME 93.7 fL (81.0-99.0); MEAN PLATELET VOLUME 7.8 fl (7.4-10.4); MONOCYTES % 6.9 % (2.0-8.0); NEUTROPHILS % 78.6 % (40.0-76.0); PLATELET 270 x1000/uL (130-400); RED BLOOD CELL COUNT 2.89 mill/uL (4.2-5.4); RED CELL DISTRIBUTION WIDTH 17.3 % (11.6-14.6)
[2019-09-02 08:29] LABS: CHLORIDE 99 mEq/L (98-107)
[2019-09-02 08:30] LABS: PROTHROMBIN TIME 10.4 sec (9.6-11.0)
[2019-09-02 08:33] LABS: ETHANOL BLOOD < 10 mg/dL
[2019-09-02 09:44] LABS: HCG SCREEN NEGATIVE
[2019-09-02] MEDS ORDERED: DICYCLOMINE HCL 10MG/ML 2ML AMP IM STA (11:31)
[2019-09-02 12:45] VITALS: BP 170/85
== END 2019-09-02 12:53 | disposition home or self-care (01) ==
LOC: ER 06:22
DX: G89.29 Other chronic pain (principal); R10.13 Epigastric pain; I12.9 Hypertensive chronic kidney disease with stage 1 through stage 4 chronic kidney disease, or unspecified chronic kidney disease; N18.9 Chronic kidney disease, unspecified; E87.8 Other disorders of electrolyte and fluid balance, not elsewhere classified; D64.9 Anemia, unspecified; F41.9 Anxiety disorder, unspecified; F32.9 Major depressive disorder, single episode, unspecified; I10 Essential (primary) hypertension; Z88.0 Allergy status to penicillin; Z79.899 Other long term (current) drug therapy; Z87.19 Personal history of other diseases of the digestive system; Z99.2 Dependence on renal dialysis
CPT/HCPCS: 36415; 71045; 74176; 80053; 80320; 83690; 84484; 84703; 85025; 85610; 93005; 96361; 96372; 96374; 96375; 99284; J0500; J2060; J2270; J2405; J3490; J7030; G0480

== ENCOUNTER 2019-10-03 10:47 | Inpatient (IN) | payer MEDICARE, MEDICAID ==
[~2019-10-03] VITALS: Ht 175.3 cm; Wt 74.8 kg
[~2019-10-03 10:47] MED LIST changes: -ATOR10TA PO; +NIFE-32 PO; -NIFE60TA64 PO; +OMEP40CA12 PO; -OMEP40CA34 PO
[2019-10-03] MEDS ORDERED: FAMOTIDINE 20MG/2ML VIAL IV STA (11:20)
[2019-10-03] MEDS ORDERED: MORPHINE SULFATE 4 MG/ML CPJ (NOT FOR IM USE) IV STA (11:20)
[2019-10-03] MEDS ORDERED: ONDANSETRON HCL 4MG/2ML INJ IV STA (11:20)
[2019-10-03] MEDS ORDERED: SODIUM CHLORIDE 0.9% 1,000 ML IV ONE (11:20)
[2019-10-03 12:09] LABS: HEMATOCRIT. 32.5 % (36.0-48.0); HEMOGLOBIN. 10.3 g/dL (12.0-16.0); MEAN CORPUSCULAR HEMOGLOBIN 28.7 pg (28.0-32.0); MEAN CORPUSCULAR VOLUME 90.4 fL (81.0-99.0); MEAN PLATELET VOLUME 8.1 fl (7.4-10.4); PLATELET 219 x1000/uL (130-400); RED CELL DISTRIBUTION WIDTH 16.5 % (11.6-14.6)
[2019-10-03 12:17] LABS: PROTHROMBIN TIME 10.8 sec (9.6-11.0)
[2019-10-03 12:22] LABS: CHLORIDE 101 mEq/L (98-107)
[2019-10-03 12:30] LABS: HCG SCREEN NEGATIVE
[2019-10-03 12:43] LABS: PLATELET ESTIMATE NORMAL
[2019-10-03] MEDS: MORPHINE SULFATE 4 MG/ML CPJ (NOT FOR IM USE) IV ONE ×2 (13:36→14:48)
[2019-10-03] MEDS ORDERED: DOCUSATE SODIUM 100MG CAPSULE PO PRN (15:30)
[2019-10-03] MEDS ORDERED: ONDANSETRON HCL 4MG/2ML INJ IV PRN (15:30)
[2019-10-03] MEDS ORDERED: AMLODIPINE 10MG TABLET PO SCH (15:30)
[2019-10-03] MEDS ORDERED: ACETAMINOPHEN 325MG TABLET PO PRN (15:30)
[2019-10-03] MEDS ORDERED: LISINOPRIL 20MG TABLET PO NR (15:50)
[2019-10-03] MEDS ORDERED: METOPROLOL TARTRATE 25MG TABLET PO NR ×2 (15:52→22:48)
[2019-10-03] MEDS ORDERED: ENOXAPARIN 30MG/0.3ML SYR SUBCUT NR (15:52)
[2019-10-03] MEDS ORDERED: PANTOPRAZOLE SODIUM 40 MG/VIAL IV NR (15:53)
[2019-10-03] MEDS ORDERED: METOCLOPRAMIDE HCL 10MG/2ML VIAL IV PRN (16:22)
[2019-10-03] MEDS: MORPHINE SULFATE 2 MG/ML CPJ (NOT FOR IM USE) IV PRN (20:59)
[2019-10-03] MEDS ORDERED: HYDRALAZINE HCL 50MG TABLET PO NR (22:52)
[2019-10-04] MEDS: MORPHINE SULFATE 2 MG/ML CPJ (NOT FOR IM USE) IV PRN ×3 (02:41→20:16)
[2019-10-04] MEDS ORDERED: HYDRALAZINE HCL 50MG TABLET PO SCH ×3 (06:00→14:00)
[2019-10-04] MEDS ORDERED: PANTOPRAZOLE SODIUM 40 MG/VIAL IV SCH (09:00)
[2019-10-04] MEDS ORDERED: METOPROLOL TARTRATE 25MG TABLET PO NR (09:30)
[2019-10-04] MEDS ORDERED: LISINOPRIL 20MG TABLET PO NR (09:30)
[2019-10-04] MEDS ORDERED: AMLODIPINE 10MG TABLET PO NR (09:30)
[2019-10-04 16:27] VITALS: BP 154/88
[2019-10-04 20:00] VITALS: BP 167/96
[2019-10-04] MEDS: DIPHENHYDRAMINE 50MG/ML VIAL IV PRN (20:05)
[2019-10-04] MEDS: METOPROLOL TARTRATE 25MG TABLET PO SCH (20:38)
[2019-10-04] MEDS: HYDRALAZINE HCL 50MG TABLET PO SCH (22:00)
[2019-10-05] VITALS: BP 133/91
[2019-10-05] MEDS: MORPHINE SULFATE 2 MG/ML CPJ (NOT FOR IM USE) IV PRN ×5 (00:20→23:33)
[2019-10-05] MEDS: DIPHENHYDRAMINE 50MG/ML VIAL IV PRN ×3 (02:13→20:25)
[2019-10-05] MEDS: HYDRALAZINE HCL 50MG TABLET PO SCH ×3 (05:27→21:48)
[2019-10-05] MEDS ORDERED: LISINOPRIL 5MG TABLET PO SCH (09:00)
[2019-10-05] MEDS ORDERED: AMLODIPINE 10MG TABLET PO SCH (09:00)
[2019-10-05] MEDS: METOPROLOL TARTRATE 25MG TABLET PO SCH ×2 (09:00→20:26)
[2019-10-05] MEDS: PANTOPRAZOLE SODIUM 40 MG/VIAL IV SCH (09:00)
[2019-10-05] MEDS ORDERED: ENOXAPARIN 30MG/0.3ML SYR SUBCUT SCH (09:00)
[2019-10-05] MEDS ORDERED: LISINOPRIL 40MG TABLET PO SCH (09:00)
[2019-10-05 14:25] VITALS: BP 221/108
[2019-10-05 20:00] VITALS: BP 175/99
[2019-10-06] VITALS: BP 172/96
[2019-10-06 04:00] VITALS: BP 175/103
[2019-10-06] MEDS: DIPHENHYDRAMINE 50MG/ML VIAL IV PRN (05:12)
[2019-10-06] MEDS: HYDRALAZINE HCL 50MG TABLET PO SCH (05:23)
[2019-10-06] MEDS: MORPHINE SULFATE 2 MG/ML CPJ (NOT FOR IM USE) IV PRN (05:23)
[2019-10-06 08:00] VITALS: BP 174/70
[2019-10-06] MEDS: PANTOPRAZOLE SODIUM 40 MG/VIAL IV SCH (09:00)
[2019-10-06 11:15] VITALS: BP 174/91
[2019-10-06] MEDS ORDERED: ATORVASTATIN CALCIUM 20MG TABLET PO SCH (21:00)
[2020-02-13] MEDS ORDERED: METR500T MT (12:48)
[2020-02-13] MEDS ORDERED: HYDR-4135 PO (12:48)
[2020-02-13] MEDS ORDERED: CIPR-263 MT (12:48)
[2020-02-13] MEDS ORDERED: CLON0.1T PO (12:48)
== END 2019-10-06 14:26 | disposition home or self-care (01) | DRG 73 ==
LOC: ER 10:53 → 6WST 12:53 → ENRESERV 10-04 14:25 → 6WST 10-04 16:12
PROVIDERS: ADMIT Hospitalist; ATTEND Hospitalist
PROC: 5A1D70Z Performance of Urinary Filtration, Intermittent, Less than 6 Hours Per Day (ICD-10-PCS; principal; 2019-10-04)
PROC: 5A1D70Z Performance of Urinary Filtration, Intermittent, Less than 6 Hours Per Day (ICD-10-PCS; 2019-10-06)
DX: E11.43 Type 2 diabetes mellitus with diabetic autonomic (poly)neuropathy (principal); N18.6 End stage renal disease; I12.0 Hypertensive chronic kidney disease with stage 5 chronic kidney disease or end stage renal disease; N25.81 Secondary hyperparathyroidism of renal origin; E11.22 Type 2 diabetes mellitus with diabetic chronic kidney disease; G89.29 Other chronic pain; K31.84 Gastroparesis; E78.5 Hyperlipidemia, unspecified; F32.9 Major depressive disorder, single episode, unspecified; Z99.2 Dependence on renal dialysis; Z91.15 Patient's noncompliance with renal dialysis; Z88.0 Allergy status to penicillin; Z79.899 Other long term (current) drug therapy
CPT/HCPCS: 36415; 80053; 84703; 85025; 96374; 99285; C9113; J1200; J1650; J2270; J2405; J2765; J3490; J7030

== ENCOUNTER 2019-10-25 13:57 | Inpatient (IN) | payer MEDICARE, MEDICAID ==
[~2019-10-25] VITALS: Ht 167.6 cm; Wt 73.0 kg
[2019-10-25] MEDS ORDERED: ONDANSETRON HCL 4MG/2ML INJ IV STA (17:26)
[2019-10-25] MEDS ORDERED: MORPHINE SULFATE 4 MG/ML CPJ (NOT FOR IM USE) IV STA (17:26)
[2019-10-25] MEDS ORDERED: LORAZEPAM 2MG/ML CPJ IV ONE (17:30)
[2019-10-25] MEDS ORDERED: HYDRALAZINE 20MG/ML VIAL IV ONE (17:30)
[2019-10-25 18:33] LABS: BASOPHILS % 0.4 % (0.0-2.0); EOSINOPHILS % 0.6 % (0.0-5.0); HEMATOCRIT. 28.8 % (36.0-48.0); HEMOGLOBIN. 9.2 g/dL (12.0-16.0); LYMPHOCYTES % 11.1 % (20.0-50.0); MEAN CORPUSCULAR VOLUME 91.3 fL (81.0-99.0); MEAN PLATELET VOLUME 7.7 fl (7.4-10.4); MONOCYTES % 5.7 % (2.0-8.0); NEUTROPHILS % 82.2 % (40.0-76.0); PLATELET 207 x1000/uL (130-400); RED BLOOD CELL COUNT 3.16 mill/uL (4.2-5.4); RED CELL DISTRIBUTION WIDTH 16.9 % (11.6-14.6)
[2019-10-25 18:35] LABS: CHLORIDE 99 mEq/L (98-107)
[2019-10-25 18:36] LABS: PROTHROMBIN TIME 10.7 sec (9.6-11.0)
[2019-10-25 18:39] LABS: ETHANOL BLOOD < 10 mg/dL
[2019-10-25 18:47] LABS: HCG SCREEN NEGATIVE
[2019-10-25] MEDS ORDERED: INSULIN REGULAR (HUMULIN R) 300UNITS/3ML IV ONE (19:30)
[2019-10-25] MEDS ORDERED: ALBUTEROL (0.083%) 2.5MG/3ML NEB HHN ONE (19:30)
[2019-10-25] MEDS ORDERED: SODIUM POLYSTYRENE SULFONATE 15 G/60 ML BOT PO ONE (19:30)
[2019-10-25] MEDS ORDERED: SODIUM BICARBONATE 8.4% 1 MEQ/ML 50ML SYR IV ONE (19:30)
[2019-10-25] MEDS ORDERED: DEXTROSE 50% WATER 50ML SYRINGE IV ONE ×2 (19:30→21:30)
[2019-10-25] MEDS ORDERED: CLONIDINE 0.2MG TABLET PO ONE (21:00)
[2019-10-25] MEDS ORDERED: DOCUSATE SODIUM 100MG CAPSULE PO PRN (21:30)
[2019-10-25] MEDS ORDERED: GUAIFENESIN 200MG/10ML SUGAR FREE UDC PO PRN (21:30)
[2019-10-25] MEDS ORDERED: MAGNESIUM/ALUMINUM HYDROXIDE/SIMETHICONE 30ML UDC PO PRN (21:30)
[2019-10-25] MEDS ORDERED: ACETAMINOPHEN 325MG TABLET PO PRN (21:30)
[2019-10-25] MEDS ORDERED: ONDANSETRON HCL 4MG/2ML INJ IV PRN (21:30)
[2019-10-25] MEDS: AMLODIPINE 10MG TABLET PO SCH (21:45)
[2019-10-25] MEDS: LISINOPRIL 20MG TABLET PO SCH (21:46)
[2019-10-25] MEDS: HYDRALAZINE HCL 50MG TABLET PO SCH (22:00)
[2019-10-25 22:19] VITALS: BP 155/83
[2019-10-26] VITALS: BP 155/78
[2019-10-26] MEDS: MORPHINE SULFATE 2 MG/ML CPJ (NOT FOR IM USE) IV PRN ×5 (03:32→22:38)
[2019-10-26] MEDS: HYDRALAZINE HCL 50MG TABLET PO SCH ×4 (06:00→21:28)
[2019-10-26 08:00] VITALS: BP 170/90
[2019-10-26] MEDS: ENOXAPARIN 30MG/0.3ML SYR SUBCUT SCH ×2 (09:00→09:55)
[2019-10-26] MEDS: AMLODIPINE 10MG TABLET PO SCH (09:55)
[2019-10-26] MEDS: LISINOPRIL 20MG TABLET PO SCH (09:56)
[2019-10-26 12:00] VITALS: BP 185/113
[2019-10-26] MEDS: CLONIDINE 0.1MG TABLET PO PRN (12:53)
[2019-10-26] MEDS: DIPHENHYDRAMINE 50MG/ML VIAL IV PRN ×2 (13:48→18:55)
[2019-10-26 14:24] LABS: BASOPHILS % 0.5 % (0.0-2.0); EOSINOPHILS % 1.4 % (0.0-5.0); HEMATOCRIT. 23.6 % (36.0-48.0); HEMOGLOBIN. 7.7 g/dL (12.0-16.0); LYMPHOCYTES % 10.1 % (20.0-50.0); MEAN CORPUSCULAR HEMOGLOBIN 29.1 pg (28.0-32.0); MEAN CORPUSCULAR VOLUME 89.4 fL (81.0-99.0); MEAN PLATELET VOLUME 7.7 fl (7.4-10.4); MONOCYTES % 4.6 % (2.0-8.0); NEUTROPHILS % 83.4 % (40.0-76.0); PLATELET 152 x1000/uL (130-400); RED BLOOD CELL COUNT 2.64 mill/uL (4.2-5.4); RED CELL DISTRIBUTION WIDTH 16.8 % (11.6-14.6)
[2019-10-26 14:32] LABS: CHLORIDE 101 mEq/L (98-107)
[2019-10-26 16:00] VITALS: BP 161/82
[2019-10-26 16:43] LABS: HEPATITIS B SURFACE ANTIGEN NEGATIVE
[2019-10-26 20:00] VITALS: BP 164/85
[2019-10-26] MEDS ORDERED: EPOETIN ALFA 10000UNITS/ML VIAL SUBCUT SCH (21:00)
[2019-10-26] MEDS ORDERED: PREGABALIN 75MG CAPSULE PO SCH (21:00)
[2019-10-27 04:00] VITALS: BP 165/84
[2019-10-27] MEDS: MORPHINE SULFATE 2 MG/ML CPJ (NOT FOR IM USE) IV PRN ×2 (04:12→11:56)
[2019-10-27] MEDS: HYDRALAZINE HCL 50MG TABLET PO SCH ×2 (04:13→13:56)
[2019-10-27] MEDS: DIPHENHYDRAMINE 50MG/ML VIAL IV PRN (05:41)
[2019-10-27 08:00] VITALS: BP 181/101
[2019-10-27] MEDS: ENOXAPARIN 30MG/0.3ML SYR SUBCUT SCH (09:00)
[2019-10-27] MEDS: LISINOPRIL 20MG TABLET PO SCH (11:54)
[2019-10-27] MEDS: AMLODIPINE 10MG TABLET PO SCH (11:55)
[2019-10-27] MEDS: CLONIDINE 0.1MG TABLET PO PRN (13:05)
[2019-10-27] MEDS ORDERED: HYDRALAZINE HCL 100MG TABLET PO NR (13:48)
[2019-10-27 14:03] VITALS: BP 181/101
== END 2019-10-27 14:52 | disposition home or self-care (01) | DRG 291 ==
LOC: ER 13:57 → 7WST 20:21 → ENRESERV 20:54
PROVIDERS: ADMIT Hospitalist; ATTEND Hospitalist
PROC: 5A1D70Z Performance of Urinary Filtration, Intermittent, Less than 6 Hours Per Day (ICD-10-PCS; principal; 2019-10-26)
DX: I13.2 Hypertensive heart and chronic kidney disease with heart failure and with stage 5 chronic kidney disease, or end stage renal disease (principal); N18.6 End stage renal disease; I50.33 Acute on chronic diastolic (congestive) heart failure; N25.81 Secondary hyperparathyroidism of renal origin; E11.43 Type 2 diabetes mellitus with diabetic autonomic (poly)neuropathy; K31.84 Gastroparesis; G89.4 Chronic pain syndrome; E11.22 Type 2 diabetes mellitus with diabetic chronic kidney disease; E11.40 Type 2 diabetes mellitus with diabetic neuropathy, unspecified; F32.9 Major depressive disorder, single episode, unspecified; D64.9 Anemia, unspecified; F41.9 Anxiety disorder, unspecified; E16.2 Hypoglycemia, unspecified; Z82.49 Family history of ischemic heart disease and other diseases of the circulatory system; Z91.19 Patient's noncompliance with other medical treatment and regimen; Z99.2 Dependence on renal dialysis; Z88.0 Allergy status to penicillin; Z87.19 Personal history of other diseases of the digestive system; Z79.899 Other long term (current) drug therapy; Z91.15 Patient's noncompliance with renal dialysis; E87.5 Hyperkalemia
CPT/HCPCS: 36415; 71045; 74176; 80053; 80320; 82962; 84484; 84703; 85025; 93005; 94644; 96374; 96375; 99285; J0360; J0885; J1200; J1650; J1815; J2060; J2270; J2405; J3490; J7611; G0480

== ENCOUNTER 2019-11-14 04:36 | Inpatient (IN) | payer MEDICARE, MEDICAID ==
[~2019-11-14] VITALS: Ht 180.3 cm; Wt 90.7 kg
[2019-11-14] MEDS ORDERED: MORPHINE SULFATE 4 MG/ML CPJ (NOT FOR IM USE) IV STA ×2 (07:05→10:00)
[2019-11-14] MEDS ORDERED: ONDANSETRON HCL 4MG/2ML INJ IV STA (07:05)
[2019-11-14 07:19] LABS: HEMATOCRIT. 29.6 % (36.0-48.0); HEMOGLOBIN. 9.6 g/dL (12.0-16.0); MEAN CORPUSCULAR HEMOGLOBIN 29.5 pg (28.0-32.0); MEAN CORPUSCULAR VOLUME 91.4 fL (81.0-99.0); MEAN PLATELET VOLUME 8.4 fl (7.4-10.4); PLATELET 214 x1000/uL (130-400); RED BLOOD CELL COUNT 3.24 mill/uL (4.2-5.4); RED CELL DISTRIBUTION WIDTH 17.4 % (11.6-14.6)
[2019-11-14 07:22] LABS: CHLORIDE 98 mEq/L (98-107)
[2019-11-14 07:23] LABS: PROTHROMBIN TIME 10.4 sec (9.6-11.0)
[2019-11-14 07:34] LABS: HCG SCREEN NEGATIVE
[2019-11-14 08:32] LABS: PLATELET ESTIMATE NORMAL
[2019-11-14] MEDS ORDERED: SODIUM POLYSTYRENE SULFONATE 15 G/60 ML BOT PO ONE (10:00)
[2019-11-14] MEDS ORDERED: CLONIDINE 0.2MG TABLET PO ONE (10:00)
[2019-11-14] MEDS ORDERED: DEXTROSE 50% WATER 50ML SYRINGE IV ONE ×2 (10:00→11:56)
[2019-11-14] MEDS ORDERED: INSULIN REGULAR (HUMULIN R) 300UNITS/3ML IV ONE (10:00)
[2019-11-14] MEDS ORDERED: ACETAMINOPHEN 325MG TABLET PO PRN ×2 (11:00→16:00)
[2019-11-14] MEDS ORDERED: MAGNESIUM/ALUMINUM HYDROXIDE/SIMETHICONE 30ML UDC PO PRN (16:00)
[2019-11-14] MEDS ORDERED: NA PHOS,M-B/NA PHOS,DI-BA ENEMA 118ML PR PRN (16:00)
[2019-11-14] MEDS ORDERED: ACETAMINOPHEN 650MG/20.3ML UDC GT PRN (16:00)
[2019-11-14] MEDS ORDERED: ACETAMINOPHEN 650MG SUPP PR PRN (16:00)
[2019-11-14] MEDS ORDERED: ONDANSETRON HCL 4MG/2ML INJ IV PRN (16:00)
[2019-11-14] MEDS ORDERED: IPRATROPIUM/ALBUTEROL 0.5-3(2.5)MG/3ML NEB HHN PRN (16:00)
[2019-11-14] MEDS ORDERED: HYDROCODONE/ACETAMINOPHEN 5/325MG TABLET PO PRN (16:00)
[2019-11-14] MEDS: FAMOTIDINE 20MG/2ML VIAL IV SCH (17:22)
[2019-11-14] MEDS: MORPHINE SULFATE 2 MG/ML CPJ (NOT FOR IM USE) IV PRN ×2 (17:22→23:00)
[2019-11-14] MEDS: METOCLOPRAMIDE HCL 10MG/2ML VIAL IV SCH (17:22)
[2019-11-14 22:51] VITALS: BP 171/70
[2019-11-14] MEDS: EPOETIN ALFA 4000UNITS/ML VIAL SUBCUT SCH (23:00)
[2019-11-15] VITALS: BP 184/78
[2019-11-15] MEDS: EPOETIN ALFA 4000UNITS/ML VIAL SUBCUT SCH (00:07)
[2019-11-15] MEDS: METOCLOPRAMIDE HCL 10MG/2ML VIAL IV SCH ×5 (00:07→14:30)
[2019-11-15] MEDS: CLONIDINE 0.1MG TABLET PO PRN ×2 (00:08→09:42)
[2019-11-15 00:36] VITALS: BP 171/70
[2019-11-15] MEDS: MORPHINE SULFATE 2 MG/ML CPJ (NOT FOR IM USE) IV PRN ×3 (03:06→14:29)
[2019-11-15] MEDS: SODIUM CHLORIDE 0.9% INJ 3ML FLUSH IVF SCH ×2 (05:35→05:46)
[2019-11-15] MEDS ORDERED: DIPHENHYDRAMINE 50MG/ML VIAL IV PRN (07:30)
[2019-11-15] MEDS: FAMOTIDINE 20MG/2ML VIAL IV SCH (09:00)
[2019-11-15 12:00] VITALS: BP 151/84
[2019-11-15] MEDS: PREGABALIN 75MG CAPSULE PO SCH ×2 (12:00→14:30)
[2019-11-15] MEDS: NIFEDIPINE XL 30MG TAB PO SCH ×2 (12:15→14:31)
[2019-11-15] MEDS ORDERED: LOSARTAN POTASSIUM 50 MG TABLET PO SCH (12:15)
[2019-11-15] MEDS ORDERED: CLONIDINE 0.2MG TABLET PO SCH (14:00)
[2019-11-15 16:50] VITALS: BP 151/84
[2019-11-15] MEDS ORDERED: HYDRALAZINE HCL 50MG TABLET PO SCH (21:00)
== END 2019-11-15 20:50 | disposition home or self-care (01) | DRG 640 ==
LOC: ER 04:36 → 7WST 11:00 → EDBEDREQTM 11:07 → EDBEDREQ 12:02 → EDBEDREQTM 12:02 → EDBEDREQSVC 12:03 → ENRESERV 20:55
PROVIDERS: ADMIT Family Medicine; ATTEND Family Medicine
PROC: 5A1D70Z Performance of Urinary Filtration, Intermittent, Less than 6 Hours Per Day (ICD-10-PCS; principal; 2019-11-14)
DX: E87.5 Hyperkalemia (principal); N18.6 End stage renal disease; I13.2 Hypertensive heart and chronic kidney disease with heart failure and with stage 5 chronic kidney disease, or end stage renal disease; N25.81 Secondary hyperparathyroidism of renal origin; I50.32 Chronic diastolic (congestive) heart failure; F32.9 Major depressive disorder, single episode, unspecified; D64.9 Anemia, unspecified; R10.9 Unspecified abdominal pain; E11.22 Type 2 diabetes mellitus with diabetic chronic kidney disease; G89.29 Other chronic pain; E11.40 Type 2 diabetes mellitus with diabetic neuropathy, unspecified; E11.649 Type 2 diabetes mellitus with hypoglycemia without coma; F41.9 Anxiety disorder, unspecified; Z82.49 Family history of ischemic heart disease and other diseases of the circulatory system; Z99.2 Dependence on renal dialysis; Z88.0 Allergy status to penicillin; Z79.899 Other long term (current) drug therapy
CPT/HCPCS: 36415; 71045; 80053; 82962; 84484; 84703; 85025; 93005; 99285; J0885; J1200; J1815; J2270; J2405; J2765; J3490

== ENCOUNTER 2019-12-08 01:09 | Emergency (ER) | payer MEDICARE, MEDICAID ==
[~2019-12-08] VITALS: Ht 165.1 cm; Wt 75.0 kg
[2019-12-08] MEDS ORDERED: HALOPERIDOL LACTATE 5MG/ML VIAL IM ONE ×2 (01:30→04:00)
[2019-12-08] MEDS ORDERED: ONDANSETRON 4MG ODT PO ONE (01:30)
[2019-12-08 02:10] LABS: HEMATOCRIT 31.1 % (36.0-48.0); HEMOGLOBIN 10.1 g/dL (12.0-16.0); MEAN CORPUSCULAR HEMOGLOBIN 29.6 pg (28.0-32.0); MEAN CORPUSCULAR VOLUME 91.4 fL (81.0-99.0); PLATELET 294 x1000/uL (130-400); RED BLOOD CELL COUNT 3.41 mill/uL (4.2-5.4); RED CELL DISTRIBUTION WIDTH 17.7 % (11.6-14.6)
[2019-12-08 03:17] LABS: CHLORIDE 99 mEq/L (98-107)
[2019-12-08] MEDS ORDERED: HYDROCODONE/ACETAMINOPHEN 10/325MG TABLET PO ONE (04:00)
[2019-12-08] MEDS ORDERED: METOCLOPRAMIDE HCL 10MG TABLET PO ONE (04:00)
[2019-12-08] MEDS ORDERED: CLONIDINE 0.3MG TABLET PO SCH (06:15)
[2019-12-08] MEDS ORDERED: LISINOPRIL 40MG TABLET PO ONE (06:15)
[2019-12-08] MEDS ORDERED: HALOPERIDOL LACTATE 5MG/ML VIAL IM NR (09:13)
[2019-12-08] MEDS ORDERED: HYDROCODONE/ACETAMINOPHEN 10/325MG TABLET PO NR (09:15)
[2019-12-08 09:46] VITALS: BP 214/138
== END 2019-12-08 09:52 | disposition home or self-care (01) ==
LOC: ER 01:09
DX: G89.29 Other chronic pain (principal); I12.0 Hypertensive chronic kidney disease with stage 5 chronic kidney disease or end stage renal disease; N18.6 End stage renal disease; F12.10 Cannabis abuse, uncomplicated; Z98.890 Other specified postprocedural states; Z76.5 Malingerer [conscious simulation]; Z88.0 Allergy status to penicillin; Z79.899 Other long term (current) drug therapy
CPT/HCPCS: 36415; 80053; 83690; 85027; 96372; 99285; J1630; J8597; Q0162

== ENCOUNTER 2019-12-08 09:55 | Inpatient (IN) | payer MEDICARE, MEDICAID ==
[~2019-12-08] VITALS: Ht 180.3 cm; Wt 70.8 kg
[2019-12-08] MEDS ORDERED: SODIUM CHLORIDE 0.9% 250 ML IV ONE (11:46)
[2019-12-08] MEDS ORDERED: ONDANSETRON HCL 4MG/2ML INJ IV STA (11:46)
[2019-12-08] MEDS ORDERED: MORPHINE SULFATE 4 MG/ML CPJ (NOT FOR IM USE) IV STA (11:46)
[2019-12-08] MEDS ORDERED: FAMOTIDINE 20MG/2ML VIAL IV ONE (12:00)
[2019-12-08 12:08] LABS: HEMATOCRIT. 25.9 % (36.0-48.0); HEMOGLOBIN. 8.3 g/dL (12.0-16.0); MEAN CORPUSCULAR HEMOGLOBIN 29.2 pg (28.0-32.0); MEAN PLATELET VOLUME 7.8 fl (7.4-10.4); PLATELET 209 x1000/uL (130-400); RED BLOOD CELL COUNT 2.85 mill/uL (4.2-5.4); RED CELL DISTRIBUTION WIDTH 17.3 % (11.6-14.6)
[2019-12-08 12:12] LABS: CHLORIDE 97 mEq/L (98-107)
[2019-12-08 12:21] LABS: HCG SCREEN NEGATIVE
[2019-12-08 12:41] LABS: PLATELET ESTIMATE NORMAL
[2019-12-08] MEDS ORDERED: ONDANSETRON HCL 4MG/2ML INJ IV PRN (14:45)
[2019-12-08 17:00] VITALS: BP 155/74
[2019-12-08 17:16] VITALS: BP 155/74
[2019-12-08 20:13] VITALS: BP 168/100
[2019-12-08] MEDS: CLONIDINE 0.1MG TABLET PO PRN (20:35)
[2019-12-08] MEDS ORDERED: FAMOTIDINE 20MG/2ML VIAL IV SCH (21:00)
[2019-12-09] VITALS: BP 148/67
[2019-12-09 04:00] VITALS: BP 155/80
[2019-12-09] MEDS: FAMOTIDINE 20MG/2ML VIAL IV SCH (08:17)
[2019-12-09 08:45] VITALS: BP 209/105
[2019-12-09] MEDS: CLONIDINE 0.1MG TABLET PO PRN ×2 (08:45→18:02)
[2019-12-09 12:00] VITALS: BP 181/94
[2019-12-09 16:00] VITALS: BP 199/111
[2019-12-09] MEDS: MORPHINE SULFATE 2 MG/ML CPJ (NOT FOR IM USE) IV PRN ×2 (16:39→22:21)
[2019-12-09 20:29] VITALS: BP 177/102
[2019-12-09] MEDS: NIFEDIPINE XL 60MG TAB PO SCH ×2 (21:00→22:02)
[2019-12-09] MEDS: HYDRALAZINE HCL 50MG TABLET PO SCH ×2 (21:00→22:02)
[2019-12-09] MEDS: LOSARTAN POTASSIUM 100 MG TABLET PO SCH (22:02)
[2019-12-10 00:01] VITALS: BP 132/95
[2019-12-10 03:35] VITALS: BP 185/89
[2019-12-10] MEDS: MORPHINE SULFATE 2 MG/ML CPJ (NOT FOR IM USE) IV PRN ×2 (03:43→12:46)
[2019-12-10] MEDS: NIFEDIPINE XL 60MG TAB PO SCH (09:00)
[2019-12-10] MEDS: HYDRALAZINE HCL 50MG TABLET PO SCH ×2 (09:00→12:34)
[2019-12-10] MEDS: FAMOTIDINE 20MG/2ML VIAL IV SCH ×2 (09:00→12:34)
[2019-12-10] MEDS: LOSARTAN POTASSIUM 100 MG TABLET PO SCH (09:00)
[2019-12-10 12:08] VITALS: BP 187/98
[2019-12-10] MEDS: CLONIDINE 0.1MG TABLET PO PRN (12:33)
[2019-12-10 16:25] VITALS: BP 152/69
[2019-12-10 16:35] VITALS: BP 152/69
== END 2019-12-10 17:20 | disposition home or self-care (01) | DRG 73 ==
LOC: ER 09:55 → 6WST 14:21 → EDBEDREQ 14:26 → ENRESERV 16:07
PROVIDERS: ADMIT Family Medicine; ATTEND Family Medicine
PROC: 5A1D70Z Performance of Urinary Filtration, Intermittent, Less than 6 Hours Per Day (ICD-10-PCS; principal; 2019-12-09)
DX: E11.43 Type 2 diabetes mellitus with diabetic autonomic (poly)neuropathy (principal); N18.6 End stage renal disease; K92.2 Gastrointestinal hemorrhage, unspecified; N25.81 Secondary hyperparathyroidism of renal origin; I13.2 Hypertensive heart and chronic kidney disease with heart failure and with stage 5 chronic kidney disease, or end stage renal disease; D62 Acute posthemorrhagic anemia; D63.1 Anemia in chronic kidney disease; K31.84 Gastroparesis; F32.9 Major depressive disorder, single episode, unspecified; E11.22 Type 2 diabetes mellitus with diabetic chronic kidney disease; I50.9 Heart failure, unspecified; E11.40 Type 2 diabetes mellitus with diabetic neuropathy, unspecified; Z99.2 Dependence on renal dialysis; Z82.49 Family history of ischemic heart disease and other diseases of the circulatory system; Z87.19 Personal history of other diseases of the digestive system; Z88.0 Allergy status to penicillin; Z79.899 Other long term (current) drug therapy; Z79.4 Long term (current) use of insulin
CPT/HCPCS: 36415; 71045; 80053; 84703; 85025; 86850; 86900; 93005; 99285; J2270; J2405; J3490; J7030

== ENCOUNTER 2019-12-18 09:45 | Inpatient (IN) | payer MEDICARE, MEDICAID ==
[~2019-12-18] VITALS: Ht 172.7 cm; Wt 69.9 kg
[2019-12-18] MEDS ORDERED: MORPHINE SULFATE 4 MG/ML CPJ (NOT FOR IM USE) IV STA (10:25)
[2019-12-18] MEDS ORDERED: ONDANSETRON HCL 4MG/2ML INJ IV STA (10:25)
[2019-12-18 10:54] LABS: HEMATOCRIT. 21.5 % (36.0-48.0); HEMOGLOBIN. 7.2 g/dL (12.0-16.0); MEAN CORPUSCULAR HEMOGLOBIN 30.2 pg (28.0-32.0); MEAN CORPUSCULAR VOLUME 90.5 fL (81.0-99.0); MEAN PLATELET VOLUME 9.2 fl (7.4-10.4); PLATELET 246 x1000/uL (130-400); RED BLOOD CELL COUNT 2.37 mill/uL (4.2-5.4); RED CELL DISTRIBUTION WIDTH 17.6 % (11.6-14.6)
[2019-12-18 11:00] LABS: CHLORIDE 99 mEq/L (98-107)
[2019-12-18 11:06] LABS: HCG SCREEN NEGATIVE
[2019-12-18] MEDS ORDERED: ALBUTEROL (0.083%) 2.5MG/3ML NEB HHN ONE (11:45)
[2019-12-18] MEDS ORDERED: SODIUM BICARBONATE 8.4% 1 MEQ/ML 50ML SYR IV ONE (11:45)
[2019-12-18] MEDS ORDERED: SODIUM POLYSTYRENE SULFONATE 15 G/60 ML BOT PO ONE (11:45)
[2019-12-18 11:47] LABS: PLATELET ESTIMATE NORMAL
[2019-12-18] MEDS ORDERED: MORPHINE SULFATE 4 MG/ML CPJ (NOT FOR IM USE) IV ONE (12:00)
[2019-12-18] MEDS ORDERED: CLONIDINE 0.2MG TABLET PO ONE (12:00)
[2019-12-18 12:50] VITALS: BP_SYST 231; BP_DIAS 84; BP_DIAS 93
[2019-12-18] MEDS ORDERED: CLONIDINE 0.1MG TABLET PO PRN (13:00)
[2019-12-18] MEDS ORDERED: MAGNESIUM/ALUMINUM HYDROXIDE/SIMETHICONE 30ML UDC PO PRN (13:00)
[2019-12-18] MEDS ORDERED: LISINOPRIL 10MG TABLET PO SCH (13:00)
[2019-12-18] MEDS ORDERED: DOCUSATE SODIUM 100MG CAPSULE PO PRN (13:00)
[2019-12-18] MEDS ORDERED: HYDROCODONE/ACETAMINOPHEN 5/325MG TABLET PO PRN (13:00)
[2019-12-18] MEDS ORDERED: AMLODIPINE 10MG TABLET PO SCH (13:00)
[2019-12-18] MEDS ORDERED: ACETAMINOPHEN 325MG TABLET PO PRN (13:00)
[2019-12-18] MEDS ORDERED: ONDANSETRON HCL 4MG/2ML INJ IV PRN (13:00)
[2019-12-18] MEDS ORDERED: GUAIFENESIN 200MG/10ML SUGAR FREE UDC PO PRN (13:00)
[2019-12-18] MEDS: PANTOPRAZOLE SODIUM 40 MG/VIAL IV SCH (13:53)
[2019-12-18] MEDS ORDERED: HYDRALAZINE HCL 25MG TABLET PO SCH (14:00)
[2019-12-18] MEDS: LOSARTAN POTASSIUM 100 MG TABLET PO SCH (14:15)
[2019-12-18] MEDS: CLONIDINE 0.1MG TABLET PO SCH ×2 (15:00→20:51)
[2019-12-18 15:30] VITALS: BP 176/71
[2019-12-18] MEDS: MORPHINE SULFATE 2 MG/ML CPJ (NOT FOR IM USE) IV PRN (17:29)
[2019-12-18] MEDS: METOCLOPRAMIDE HCL 10MG/2ML VIAL IV SCH (17:34)
[2019-12-18] MEDS: GABAPENTIN 100MG CAPSULE PO SCH (18:00)
[2019-12-18 19:55] VITALS: BP 135/88
[2019-12-18 20:00] VITALS: BP 142/62
[2019-12-18] MEDS: HYDRALAZINE HCL 50MG TABLET PO SCH (20:51)
[2019-12-18] MEDS: EPOETIN ALFA 10000UNITS/ML VIAL SUBCUT SCH (20:52)
[2019-12-19 00:05] VITALS: BP 135/71
[2019-12-19] MEDS: MORPHINE SULFATE 2 MG/ML CPJ (NOT FOR IM USE) IV PRN ×4 (01:21→20:32)
[2019-12-19 04:00] VITALS: BP 167/76
[2019-12-19] MEDS: HYDRALAZINE HCL 50MG TABLET PO SCH ×3 (06:00→21:37)
[2019-12-19] MEDS: METOCLOPRAMIDE HCL 10MG/2ML VIAL IV SCH ×4 (06:00→17:37)
[2019-12-19] MEDS: CLONIDINE 0.1MG TABLET PO SCH ×3 (06:00→21:37)
[2019-12-19] MEDS: GABAPENTIN 100MG CAPSULE PO SCH ×2 (06:00→17:37)
[2019-12-19] MEDS: NIFEDIPINE XL 60MG TAB PO SCH (09:00)
[2019-12-19] MEDS: LOSARTAN POTASSIUM 100 MG TABLET PO SCH (09:00)
[2019-12-19] MEDS: PANTOPRAZOLE SODIUM 40 MG/VIAL IV SCH (09:24)
[2019-12-19 12:00] VITALS: BP 208/95
[2019-12-19 16:00] VITALS: BP 180/81
[2019-12-19] MEDS ORDERED: HYDRALAZINE 20MG/ML VIAL IV PRN (17:15)
[2019-12-19 17:21] LABS: BASOPHILS % 0.8 % (0.0-2.0); EOSINOPHILS % 1.3 % (0.0-5.0); LYMPHOCYTES % 12.8 % (20.0-50.0); MEAN CORPUSCULAR HEMOGLOBIN 29.3 pg (28.0-32.0); MEAN PLATELET VOLUME 8.1 fl (7.4-10.4); NEUTROPHILS % 77.1 % (40.0-76.0); PLATELET 120 x1000/uL (130-400); RED BLOOD CELL COUNT 2.06 mill/uL (4.2-5.4); RED CELL DISTRIBUTION WIDTH 17.4 % (11.6-14.6)
[2019-12-19 17:26] LABS: CHLORIDE 97 mEq/L (98-107)
[2019-12-19 17:30] LABS: HEMATOCRIT. 18.7 % (36.0-48.0)
[2019-12-19 20:00] VITALS: BP 159/52
[2019-12-20] VITALS: BP 153/74
[2019-12-20] MEDS: CLONIDINE 0.1MG TABLET PO SCH ×3 (05:55→22:27)
[2019-12-20] MEDS: HYDRALAZINE HCL 50MG TABLET PO SCH ×3 (05:55→22:26)
[2019-12-20] MEDS: METOCLOPRAMIDE HCL 10MG/2ML VIAL IV SCH ×4 (05:56→18:34)
[2019-12-20] MEDS: GABAPENTIN 100MG CAPSULE PO SCH ×2 (06:00→18:34)
[2019-12-20] MEDS: NIFEDIPINE XL 60MG TAB PO SCH (08:22)
[2019-12-20] MEDS: LOSARTAN POTASSIUM 100 MG TABLET PO SCH (08:22)
[2019-12-20] MEDS: PANTOPRAZOLE SODIUM 40 MG/VIAL IV SCH (09:00)
[2019-12-20] MEDS: MORPHINE SULFATE 2 MG/ML CPJ (NOT FOR IM USE) IV PRN ×2 (15:23→20:19)
[2019-12-20 16:00] VITALS: BP 194/84
[2019-12-20 16:28] LABS: BASOPHILS % 0.5 % (0.0-2.0); EOSINOPHILS % 1.5 % (0.0-5.0); HEMATOCRIT. 21.2 % (36.0-48.0); LYMPHOCYTES % 12.7 % (20.0-50.0); MEAN CORPUSCULAR HEMOGLOBIN 29.3 pg (28.0-32.0); MEAN PLATELET VOLUME 7.8 fl (7.4-10.4); MONOCYTES % 8.9 % (2.0-8.0); NEUTROPHILS % 76.4 % (40.0-76.0); PLATELET 127 x1000/uL (130-400); RED BLOOD CELL COUNT 2.33 mill/uL (4.2-5.4); RED CELL DISTRIBUTION WIDTH 17.6 % (11.6-14.6)
[2019-12-20 16:34] LABS: HEMOGLOBIN. 6.8 g/dL (12.0-16.0)
[2019-12-20] MEDS: DIPHENHYDRAMINE 50MG/ML VIAL IV PRN ×2 (18:34→22:28)
[2019-12-20 20:00] VITALS: BP_SYST 145; BP_SYST 153; BP_DIAS 58; BP_DIAS 81
[2019-12-20 20:11] VITALS: BP 152/89
[2019-12-20 20:26] VITALS: BP 156/86
[2019-12-20] MEDS: EPOETIN ALFA 10000UNITS/ML VIAL SUBCUT SCH (21:00)
[2019-12-21] VITALS: BP 123/84
[2019-12-21] MEDS: METOCLOPRAMIDE HCL 10MG/2ML VIAL IV SCH ×4 (00:31→17:38)
[2019-12-21] MEDS: MORPHINE SULFATE 2 MG/ML CPJ (NOT FOR IM USE) IV PRN ×4 (00:32→21:01)
[2019-12-21 01:39] LABS: BASOPHILS % 0.4 % (0.0-2.0); EOSINOPHILS % 1.7 % (0.0-5.0); HEMATOCRIT. 21.2 % (36.0-48.0); LYMPHOCYTES % 16.9 % (20.0-50.0); MEAN CORPUSCULAR HEMOGLOBIN 29.7 pg (28.0-32.0); MEAN CORPUSCULAR VOLUME 90.6 fL (81.0-99.0); MEAN PLATELET VOLUME 7.8 fl (7.4-10.4); MONOCYTES % 9.8 % (2.0-8.0); NEUTROPHILS % 71.2 % (40.0-76.0); PLATELET 105 x1000/uL (130-400); RED BLOOD CELL COUNT 2.33 mill/uL (4.2-5.4); RED CELL DISTRIBUTION WIDTH 15.7 % (11.6-14.6)
[2019-12-21 01:47] LABS: INR 1.1; PROTHROMBIN TIME 11.7 sec (9.6-11.0)
[2019-12-21 01:48] LABS: HEMOGLOBIN. 6.9 g/dL (12.0-16.0)
[2019-12-21] MEDS: HYDRALAZINE HCL 50MG TABLET PO SCH ×3 (05:34→15:00)
[2019-12-21] MEDS: CLONIDINE 0.1MG TABLET PO SCH ×3 (05:51→15:00)
[2019-12-21] MEDS: GABAPENTIN 100MG CAPSULE PO SCH ×2 (05:52→18:00)
[2019-12-21] MEDS: PANTOPRAZOLE SODIUM 40 MG/VIAL IV SCH (11:53)
[2019-12-21] MEDS: LOSARTAN POTASSIUM 100 MG TABLET PO SCH (11:53)
[2019-12-21] MEDS: NIFEDIPINE XL 60MG TAB PO SCH (11:53)
[2019-12-21] MEDS: DIPHENHYDRAMINE 50MG/ML VIAL IV PRN ×2 (14:47→21:01)
[2019-12-21 16:00] VITALS: BP 172/94
[2019-12-21 18:24] VITALS: BP 160/82
[2019-12-21 20:00] VITALS: BP 163/80
[2019-12-21 20:57] VITALS: BP 167/93
[2019-12-21 21:45] VITALS: BP 178/87
== END 2019-12-21 22:00 | disposition home or self-care (01) | DRG 682 ==
LOC: ER 09:45 → 7WST 11:48 → ENRESERV 12:22
PROVIDERS: ADMIT Hospitalist; ATTEND Hospitalist
PROC: 30233N1 Transfusion of Nonautologous Red Blood Cells into Peripheral Vein, Percutaneous Approach (ICD-10-PCS; principal; 2019-12-20)
PROC: 30233N1 Transfusion of Nonautologous Red Blood Cells into Peripheral Vein, Percutaneous Approach (ICD-10-PCS; 2019-12-21)
PROC: 02HV33Z Insertion of Infusion Device into Superior Vena Cava, Percutaneous Approach (ICD-10-PCS; 2019-12-21)
PROC: B5181ZA Fluoroscopy of Superior Vena Cava using Low Osmolar Contrast, Guidance (ICD-10-PCS; 2019-12-21)
DX: I12.0 Hypertensive chronic kidney disease with stage 5 chronic kidney disease or end stage renal disease (principal); N18.6 End stage renal disease; K31.84 Gastroparesis; Z99.2 Dependence on renal dialysis; E87.5 Hyperkalemia; D63.1 Anemia in chronic kidney disease
CPT/HCPCS: 36415; 36573; 71045; 74176; 76937; 80048; 80053; 84703; 85025; 85384; 86850; 86900; 86920; 93005; 94640; 96374; 96375; 96376; 99285; C1725; C9113; J0360; J0885; J1200; J2270; J2405; J2765; J3490; P9016

== ENCOUNTER 2019-12-25 22:25 | Emergency (ER) | payer MEDICARE, MEDICAID ==
[~2019-12-25] VITALS: Ht 165.1 cm; Wt 77.0 kg
[2019-12-25] MEDS ORDERED: METOCLOPRAMIDE HCL 10MG/2ML VIAL IV STA (23:50)
[2019-12-25] MEDS ORDERED: MORPHINE SULFATE 4 MG/ML CPJ (NOT FOR IM USE) IV STA (23:50)
[2019-12-25] MEDS ORDERED: PANTOPRAZOLE SODIUM 40 MG/VIAL IV STA (23:50)
[2019-12-26] MEDS ORDERED: ONDANSETRON HCL 4MG TABLET PO ONE (01:15)
[2019-12-26 01:17] LABS: HEMATOCRIT. 26.6 % (36.0-48.0); HEMOGLOBIN. 8.7 g/dL (12.0-16.0); MEAN CORPUSCULAR VOLUME 91.3 fL (81.0-99.0); MEAN PLATELET VOLUME 8.2 fl (7.4-10.4); PLATELET 188 x1000/uL (130-400); RED BLOOD CELL COUNT 2.91 mill/uL (4.2-5.4); RED CELL DISTRIBUTION WIDTH 15.3 % (11.6-14.6)
[2019-12-26 01:20] LABS: CHLORIDE 99 mEq/L (98-107)
[2019-12-26 01:24] LABS: HCG SCREEN NEGATIVE
[2019-12-26 01:59] LABS: PLATELET ESTIMATE NORMAL
[2019-12-26] MEDS ORDERED: MORPHINE SULFATE 4 MG/ML CPJ (NOT FOR IM USE) IV ONE (03:30)
[2019-12-26 04:45] VITALS: BP 156/102
== END 2019-12-26 05:51 | disposition home or self-care (01) ==
LOC: ER 22:25
DX: R10.84 Generalized abdominal pain (principal); R11.2 Nausea with vomiting, unspecified; I12.0 Hypertensive chronic kidney disease with stage 5 chronic kidney disease or end stage renal disease; N18.6 End stage renal disease; Z99.2 Dependence on renal dialysis
CPT/HCPCS: 36415; 80053; 83690; 84703; 85025; 93005; 96374; 96375; 96376; 99284; C9113; J2270; J2765; Q0162

== ENCOUNTER 2020-01-02 09:45 | Emergency (ER) | payer MEDICARE, MEDICAID ==
[~2020-01-02] VITALS: Ht 172.7 cm; Wt 84.0 kg
[2020-01-02] MEDS ORDERED: MORPHINE SULFATE 4 MG/ML CPJ (NOT FOR IM USE) IV STA (11:08)
[2020-01-02] MEDS ORDERED: ONDANSETRON HCL 4MG/2ML INJ IV STA (11:08)
[2020-01-02] MEDS ORDERED: KETOROLAC 60MG/2ML VIAL IM ONE (11:15)
[2020-01-02] MEDS ORDERED: SODIUM BICARBONATE 4% (2.4MEQ) 5ML VIAL IV ONE (12:55)
[2020-01-02] MEDS ORDERED: LIDOCAINE HCL 1% 20ML VIAL (Pyxis) INJ ONE (12:55)
[2020-01-02 13:56] LABS: BASOPHILS % 0.2 % (0.0-2.0); CHLORIDE 99 mEq/L (98-107); EOSINOPHILS % 0.3 % (0.0-5.0); HEMATOCRIT. 26.4 % (36.0-48.0); HEMOGLOBIN. 8.5 g/dL (12.0-16.0); LYMPHOCYTES % 10.9 % (20.0-50.0); MEAN CORPUSCULAR HEMOGLOBIN 29.9 pg (28.0-32.0); MEAN CORPUSCULAR VOLUME 92.3 fL (81.0-99.0); MEAN PLATELET VOLUME 7.6 fl (7.4-10.4); MONOCYTES % 7.6 % (2.0-8.0); PLATELET 150 x1000/uL (130-400); RED BLOOD CELL COUNT 2.86 mill/uL (4.2-5.4); RED CELL DISTRIBUTION WIDTH 15.9 % (11.6-14.6)
[2020-01-02 13:59] LABS: INR 1.1; PROTHROMBIN TIME 11.4 sec (9.6-11.0)
[2020-01-02] MEDS ORDERED: FUROSEMIDE 100MG/10ML VIAL IV STA (14:14)
[2020-01-02] MEDS ORDERED: DEXTROSE 50% WATER 50ML SYRINGE IV ONE (14:15)
[2020-01-02] MEDS ORDERED: SODIUM POLYSTYRENE SULFONATE 15 G/60 ML BOT PO ONE (14:15)
[2020-01-02] MEDS ORDERED: SODIUM BICARBONATE 8.4% 1 MEQ/ML 50ML SYR IV ONE (14:15)
[2020-01-02] MEDS ORDERED: INSULIN REGULAR (HUMULIN R) 300UNITS/3ML IV ONE (14:15)
[2020-01-02] MEDS ORDERED: CALCIUM CHLORIDE 1GM/10ML SYR IV ONE (14:15)
[2020-01-02] MEDS ORDERED: MORPHINE SULFATE 2 MG/ML CPJ (NOT FOR IM USE) IV ONE (16:30)
[2020-01-02 18:00] VITALS: BP 168/82
== END 2020-01-02 19:20 | disposition home or self-care (01) ==
LOC: ER 09:45
DX: R10.13 Epigastric pain (principal); I12.0 Hypertensive chronic kidney disease with stage 5 chronic kidney disease or end stage renal disease; N18.6 End stage renal disease; F11.20 Opioid dependence, uncomplicated; Z99.2 Dependence on renal dialysis; F17.210 Nicotine dependence, cigarettes, uncomplicated
CPT/HCPCS: 36415; 36573; 71045; 76937; 80053; 82962; 83690; 85025; 85610; 99285; C1725; C1769; J1815; J1940; J2270; J2405; J3490

== ENCOUNTER 2020-01-08 06:46 | Inpatient (IN) | payer MEDICARE, MEDICAID ==
[~2020-01-08] VITALS: Ht 154.9 cm; Wt 69.9 kg
[2020-01-08] MEDS ORDERED: ACETAMINOPHEN WITH CODEINE 300/30MG TABLET PO STA (07:03)
[2020-01-08] MEDS ORDERED: MAGNESIUM/ALUMINUM HYDROXIDE/SIMETHICONE 30ML UDC PO STA (07:03)
[2020-01-08] MEDS ORDERED: ONDANSETRON HCL 4MG/2ML INJ IV STA (07:03)
[2020-01-08] MEDS ORDERED: HYDRALAZINE 20MG/ML VIAL IV ONE (07:15)
[2020-01-08 08:09] LABS: HEMATOCRIT. 28.5 % (36.0-48.0); HEMOGLOBIN. 9.3 g/dL (12.0-16.0); MEAN CORPUSCULAR HEMOGLOBIN 30.1 pg (28.0-32.0); MEAN CORPUSCULAR VOLUME 91.8 fL (81.0-99.0); MEAN PLATELET VOLUME 7.6 fl (7.4-10.4); PLATELET 177 x1000/uL (130-400); RED CELL DISTRIBUTION WIDTH 16.2 % (11.6-14.6)
[2020-01-08 08:16] LABS: CHLORIDE 99 mEq/L (98-107)
[2020-01-08 08:26] LABS: HCG SCREEN NEGATIVE
[2020-01-08] MEDS ORDERED: INSULIN REGULAR (HUMULIN R) 300UNITS/3ML IV ONE (08:45)
[2020-01-08] MEDS ORDERED: SODIUM BICARBONATE 8.4% 1 MEQ/ML 50ML SYR IV ONE (08:45)
[2020-01-08] MEDS ORDERED: LORAZEPAM 2MG/ML CPJ IV ONE (08:45)
[2020-01-08] MEDS ORDERED: METOCLOPRAMIDE HCL 10MG/2ML VIAL IV ONE (08:45)
[2020-01-08] MEDS ORDERED: DEXTROSE 50% WATER 50ML SYRINGE IV ONE ×2 (08:45→10:10)
[2020-01-08 09:00] LABS: PLATELET ESTIMATE NORMAL
[2020-01-08] MEDS ORDERED: ONDANSETRON HCL 4MG/2ML INJ IV PRN (09:30)
[2020-01-08] MEDS ORDERED: LORAZEPAM 2MG/ML CPJ IV PRN (09:30)
[2020-01-08] MEDS ORDERED: MAGNESIUM/ALUMINUM HYDROXIDE/SIMETHICONE 30ML UDC PO PRN (09:30)
[2020-01-08] MEDS ORDERED: DOCUSATE SODIUM 100MG CAPSULE PO PRN (09:30)
[2020-01-08] MEDS ORDERED: GUAIFENESIN 200MG/10ML SUGAR FREE UDC PO PRN (09:30)
[2020-01-08] MEDS ORDERED: HYDROCODONE/ACETAMINOPHEN 10/325MG TABLET PO PRN (09:30)
[2020-01-08] MEDS ORDERED: ACETAMINOPHEN 325MG TABLET PO PRN (09:30)
[2020-01-08] MEDS ORDERED: IPRATROPIUM/ALBUTEROL 0.5-3(2.5)MG/3ML NEB HHN PRN (09:30)
[2020-01-08] MEDS ORDERED: CLONIDINE 0.1MG TABLET PO PRN (09:30)
[2020-01-08] MEDS: MORPHINE SULFATE 2 MG/ML CPJ (NOT FOR IM USE) IV PRN ×4 (09:38→22:40)
[2020-01-08 10:30] VITALS: BP 165/84
[2020-01-08] MEDS: ENOXAPARIN 30MG/0.3ML SYR SUBCUT SCH (10:30)
[2020-01-08] MEDS ORDERED: DEXTROSE 50% WATER 50ML SYRINGE IV PRN (11:45)
[2020-01-08 12:00] VITALS: BP 167/99
[2020-01-08] MEDS: BLOOD SUGAR DIAGNOSTIC STRIP TEST SCH ×4 (12:37→20:28)
[2020-01-08] MEDS: INSULIN LISPRO 100 UNITS/ML SUBCUT SCH ×4 (12:40→20:28)
[2020-01-08] MEDS: SODIUM CHLORIDE 0.9% INJ 3ML FLUSH IVF SCH ×2 (13:40→22:00)
[2020-01-08] MEDS: DIPHENHYDRAMINE 50MG/ML VIAL IV PRN ×2 (15:43→20:40)
[2020-01-08 16:00] VITALS: BP 167/79
[2020-01-08] MEDS: HYDRALAZINE 20MG/ML VIAL IV PRN (16:11)
[2020-01-08 16:48] LABS: CREATINE KINASE MB FRACTION 1.6 ng/mL (0.5-3.6)
[2020-01-09] VITALS: BP 188/89
[2020-01-09] MEDS: DIPHENHYDRAMINE 50MG/ML VIAL IV PRN (01:19)
[2020-01-09 04:00] VITALS: BP 187/87
[2020-01-09] MEDS: SODIUM CHLORIDE 0.9% INJ 3ML FLUSH IVF SCH ×2 (05:05→13:15)
[2020-01-09] MEDS: HYDRALAZINE 20MG/ML VIAL IV PRN ×2 (05:52→13:15)
[2020-01-09] MEDS: BLOOD SUGAR DIAGNOSTIC STRIP TEST SCH (07:40)
[2020-01-09] MEDS: INSULIN LISPRO 100 UNITS/ML SUBCUT SCH ×2 (08:10→12:50)
[2020-01-09] MEDS: MORPHINE SULFATE 2 MG/ML CPJ (NOT FOR IM USE) IV PRN ×2 (08:42→13:16)
[2020-01-09] MEDS: ENOXAPARIN 30MG/0.3ML SYR SUBCUT SCH ×2 (09:52→10:30)
[2020-01-09 13:37] VITALS: BP 151/88
== END 2020-01-09 14:45 | disposition home or self-care (01) | DRG 640 ==
LOC: ER 06:46 → 7WST 09:00 → EDBEDREQTM 09:13 → EDBEDREQ 09:13 → ENRESERV 09:46 → 6WST 01-09 12:28
PROVIDERS: ADMIT Internal Medicine; ATTEND Internal Medicine
PROC: 5A1D70Z Performance of Urinary Filtration, Intermittent, Less than 6 Hours Per Day (ICD-10-PCS; principal; 2020-01-08)
DX: E87.5 Hyperkalemia (principal); N18.6 End stage renal disease; I12.0 Hypertensive chronic kidney disease with stage 5 chronic kidney disease or end stage renal disease; D64.9 Anemia, unspecified; E11.40 Type 2 diabetes mellitus with diabetic neuropathy, unspecified; F32.9 Major depressive disorder, single episode, unspecified; E21.1 Secondary hyperparathyroidism, not elsewhere classified; E11.22 Type 2 diabetes mellitus with diabetic chronic kidney disease; Z99.2 Dependence on renal dialysis; Z79.899 Other long term (current) drug therapy; Z88.0 Allergy status to penicillin
CPT/HCPCS: 36415; 71045; 74176; 80053; 82550; 82553; 82962; 83036; 84484; 84703; 85025; 93005; 99291; J0360; J1200; J1650; J1815; J2060; J2270; J2405; J2765; J3490

== ENCOUNTER 2020-01-17 04:09 | Emergency (ER) | payer MEDICARE, MEDICAID ==
[~2020-01-17] VITALS: Ht 180.3 cm; Wt 86.2 kg
[2020-01-17] MEDS ORDERED: VISCOUS LIDOCAINE 2% 15 ML UDC PO STA (04:24)
[2020-01-17] MEDS ORDERED: DICYCLOMINE 10 MG/5 ML ORAL SYR PO STA (04:24)
[2020-01-17] MEDS ORDERED: ONDANSETRON 4MG ODT PO STA (04:24)
[2020-01-17] MEDS ORDERED: MAGNESIUM/ALUMINUM HYDROXIDE/SIMETHICONE 30ML UDC PO STA (04:24)
[2020-01-17] MEDS ORDERED: HALOPERIDOL LACTATE 5MG/ML VIAL IM ONE (04:30)
[2020-01-17 05:44] LABS: CHLORIDE 101 mEq/L (98-107)
[2020-01-17] MEDS ORDERED: ALBUTEROL (0.083%) 2.5MG/3ML NEB HHN ONE (06:00)
[2020-01-17] MEDS ORDERED: INSULIN REGULAR (HUMULIN R) 300UNITS/3ML IV ONE (06:00)
[2020-01-17] MEDS ORDERED: DEXTROSE 50% WATER 50ML SYRINGE IV ONE (06:00)
[2020-01-17 06:16] LABS: BASOPHILS % 0.9 % (0.0-2.0); EOSINOPHILS % 0.5 % (0.0-5.0); HEMATOCRIT. 23.5 % (36.0-48.0); HEMOGLOBIN. 7.7 g/dL (12.0-16.0); LYMPHOCYTES % 12.8 % (20.0-50.0); MEAN CORPUSCULAR HEMOGLOBIN 29.7 pg (28.0-32.0); MEAN CORPUSCULAR VOLUME 90.6 fL (81.0-99.0); MEAN PLATELET VOLUME 8.3 fl (7.4-10.4); NEUTROPHILS % 77.8 % (40.0-76.0); PLATELET 116 x1000/uL (130-400); RED CELL DISTRIBUTION WIDTH 14.9 % (11.6-14.6)
[2020-01-17 07:00] VITALS: BP 120/88
== END 2020-01-17 07:01 | disposition home or self-care (01) ==
LOC: ER 04:09
DX: R10.9 Unspecified abdominal pain (principal); I12.0 Hypertensive chronic kidney disease with stage 5 chronic kidney disease or end stage renal disease; N18.6 End stage renal disease; Z99.2 Dependence on renal dialysis
CPT/HCPCS: 36415; 71045; 80053; 83605; 83690; 85025; 93005; 94644; 96372; 99285; J1630; Q0162

== ENCOUNTER 2020-01-17 07:07 | Inpatient (IN) | payer MEDICARE, MEDICAID ==
[~2020-01-17] VITALS: Ht 177.8 cm; Wt 82.1 kg
[2020-01-17] MEDS ORDERED: SODIUM CHLORIDE 0.9% 1,000 ML IV ONE (07:45)
[2020-01-17] MEDS ORDERED: METOCLOPRAMIDE HCL 10MG/2ML VIAL IV ONE (07:45)
[2020-01-17] MEDS ORDERED: LABETALOL HCL 20MG/4ML CARPUJECT IV ONE ×3 (07:45→11:00)
[2020-01-17] MEDS ORDERED: LABETALOL 5MG/ML SYR 20 MG/4 ML SYRINGE IV NR ×2 (08:00→10:30)
[2020-01-17] MEDS ORDERED: ONDANSETRON HCL 4MG/2ML INJ ONE (09:18)
[2020-01-17] MEDS ORDERED: LABETALOL HCL 5MG/ML VIAL 20ML IV NR (11:00)
[2020-01-17] MEDS ORDERED: HYDRALAZINE 20MG/ML VIAL IV ONE (12:00)
[2020-01-17] MEDS ORDERED: DOCUSATE SODIUM 100MG CAPSULE PO PRN (13:00)
[2020-01-17] MEDS ORDERED: MAGNESIUM/ALUMINUM HYDROXIDE/SIMETHICONE 30ML UDC PO PRN (13:00)
[2020-01-17] MEDS ORDERED: ACETAMINOPHEN 325MG TABLET PO PRN (13:00)
[2020-01-17] MEDS ORDERED: ONDANSETRON HCL 4MG/2ML INJ IV PRN (13:00)
[2020-01-17] MEDS ORDERED: METOCLOPRAMIDE HCL 10MG/2ML VIAL IV PRN (13:15)
[2020-01-17] MEDS ORDERED: HYDRALAZINE 20MG/ML VIAL IV PRN (13:15)
[2020-01-17 14:26] VITALS: BP 223/139
[2020-01-17] MEDS: MORPHINE SULFATE 2 MG/ML CPJ (NOT FOR IM USE) IV PRN ×3 (14:38→22:33)
[2020-01-17] MEDS: HYDRALAZINE HCL 100MG TABLET PO SCH ×2 (14:38→22:29)
[2020-01-17] MEDS: PANTOPRAZOLE SODIUM 40 MG/VIAL IV SCH (14:38)
[2020-01-17] MEDS: LISINOPRIL 40MG TABLET PO SCH (14:39)
[2020-01-17] MEDS: AMLODIPINE 10MG TABLET PO SCH (14:39)
[2020-01-17 15:51] VITALS: BP 233/139
[2020-01-17 19:50] VITALS: BP 155/82
[2020-01-17] MEDS: CLONIDINE 0.1MG TABLET PO PRN (22:29)
[2020-01-17] MEDS ORDERED: AZTREONAM 2 GM in DEXT 5% WATER 100 ML IV SCH (23:00)
[2020-01-18] VITALS: BP 190/90
[2020-01-18] MEDS: MORPHINE SULFATE 2 MG/ML CPJ (NOT FOR IM USE) IV PRN ×4 (03:58→21:35)
[2020-01-18 04:00] VITALS: BP 179/88
[2020-01-18] MEDS: HYDRALAZINE HCL 100MG TABLET PO SCH ×3 (06:36→21:36)
[2020-01-18 09:00] VITALS: BP 165/80
[2020-01-18] MEDS: PANTOPRAZOLE SODIUM 40 MG/VIAL IV SCH (09:00)
[2020-01-18] MEDS ORDERED: HYDROXYCHLOROQUINE SULFATE 200MG TABLET PO SCH (09:00)
[2020-01-18] MEDS: ZINC SULFATE 220 MG ( 50 ) CAPSULE PO SCH (10:12)
[2020-01-18] MEDS: LISINOPRIL 40MG TABLET PO SCH (10:12)
[2020-01-18] MEDS: ASCORBIC ACID 500 MG TABLET PO SCH ×2 (10:13→21:36)
[2020-01-18] MEDS: AZTREONAM 1G in DEXTROSE 5% WATER 50ML IV SCH ×2 (10:14→22:42)
[2020-01-18] MEDS: AMLODIPINE 10MG TABLET PO SCH (10:14)
[2020-01-18 14:00] VITALS: BP 135/77
[2020-01-18] MEDS ORDERED: EPOETIN ALFA 10000UNITS/ML VIAL SUBCUT SCH (21:00)
[2020-01-19] MEDS: HYDRALAZINE HCL 100MG TABLET PO SCH ×3 (06:00→22:00)
[2020-01-19 08:00] VITALS: BP 152/102
[2020-01-19] MEDS: AMLODIPINE 10MG TABLET PO SCH (08:15)
[2020-01-19] MEDS: LISINOPRIL 40MG TABLET PO SCH (08:16)
[2020-01-19] MEDS: AZTREONAM 1G in DEXTROSE 5% WATER 50ML IV SCH ×2 (08:16→21:00)
[2020-01-19] MEDS: ZINC SULFATE 220 MG ( 50 ) CAPSULE PO SCH (08:16)
[2020-01-19] MEDS: ASCORBIC ACID 500 MG TABLET PO SCH ×2 (08:16→22:47)
[2020-01-19] MEDS: PANTOPRAZOLE SODIUM 40 MG/VIAL IV SCH (08:17)
[2020-01-19] MEDS: MORPHINE SULFATE 2 MG/ML CPJ (NOT FOR IM USE) IV PRN ×4 (08:39→23:46)
[2020-01-19] MEDS ORDERED: HYDROXYCHLOROQUINE SULFATE 200MG TABLET PO SCH (09:00)
[2020-01-19] MEDS: DIPHENHYDRAMINE 50MG/ML VIAL IV PRN ×3 (09:45→22:58)
[2020-01-19 10:06] LABS: CHLORIDE 98 mEq/L (98-107)
[2020-01-19 10:08] LABS: D-DIMER 0.87 mg/L FEU (<0.50); INR 1.1; PROTHROMBIN TIME 11.7 sec (9.6-11.0)
[2020-01-19 10:09] LABS: BASOPHILS % 0.4 % (0.0-2.0); EOSINOPHILS % 1.1 % (0.0-5.0); HEMATOCRIT. 23.6 % (36.0-48.0); HEMOGLOBIN. 7.7 g/dL (12.0-16.0); LYMPHOCYTES % 16.6 % (20.0-50.0); MEAN CORPUSCULAR VOLUME 91.2 fL (81.0-99.0); MEAN PLATELET VOLUME 8.5 fl (7.4-10.4); MONOCYTES % 8.5 % (2.0-8.0); NEUTROPHILS % 73.4 % (40.0-76.0); PLATELET 134 x1000/uL (130-400); RED BLOOD CELL COUNT 2.58 mill/uL (4.2-5.4); RED CELL DISTRIBUTION WIDTH 15.6 % (11.6-14.6)
[2020-01-19 10:11] LABS: C REACTIVE PROTEIN QUANT 1.2 mg/L (0.0-3.0)
[2020-01-19 10:12] LABS: PHOSPHORUS 6.2 mg/dL (2.5-4.9)
[2020-01-19] MEDS: CLONIDINE 0.1MG TABLET PO PRN (11:24)
[2020-01-19 12:00] VITALS: BP 176/91
[2020-01-19 16:00] VITALS: BP 157/79
[2020-01-20] VITALS: BP 170/89
[2020-01-20] MEDS: HYDRALAZINE HCL 100MG TABLET PO SCH (06:00)
[2020-01-20 12:27] VITALS: BP 154/90
[2020-02-13] MEDS ORDERED: CIPR-263 MT (12:48)
[2020-02-13] MEDS ORDERED: METR500T MT (12:48)
[2020-02-13] MEDS ORDERED: HYDR-4135 PO (12:48)
[2020-02-13] MEDS ORDERED: CLON0.1T PO (12:48)
== END 2020-01-20 14:25 | disposition home or self-care (01) | DRG 73 ==
LOC: ER 07:07 → 7EST 11:48 → EDBEDREQ 11:53 → ENRESERV 12:15 → 6WST 01-18 15:00
PROVIDERS: ADMIT Hospitalist; ATTEND Hospitalist
PROC: 5A1D70Z Performance of Urinary Filtration, Intermittent, Less than 6 Hours Per Day (ICD-10-PCS; 2020-01-18)
PROC: 5A1D70Z Performance of Urinary Filtration, Intermittent, Less than 6 Hours Per Day (ICD-10-PCS; principal; 2020-01-19)
DX: E11.43 Type 2 diabetes mellitus with diabetic autonomic (poly)neuropathy (principal); N18.6 End stage renal disease; J18.9 Pneumonia, unspecified organism; I12.0 Hypertensive chronic kidney disease with stage 5 chronic kidney disease or end stage renal disease; N25.81 Secondary hyperparathyroidism of renal origin; K31.84 Gastroparesis; F32.9 Major depressive disorder, single episode, unspecified; G89.4 Chronic pain syndrome; R91.8 Other nonspecific abnormal finding of lung field; E11.22 Type 2 diabetes mellitus with diabetic chronic kidney disease; D63.1 Anemia in chronic kidney disease; E78.5 Hyperlipidemia, unspecified; D69.6 Thrombocytopenia, unspecified; Z78.9 Other specified health status; Z99.2 Dependence on renal dialysis; Z03.818 Encounter for observation for suspected exposure to other biological agents ruled out; Z88.0 Allergy status to penicillin; Z79.899 Other long term (current) drug therapy
CPT/HCPCS: 36415; 71045; 74176; 80053; 82728; 83605; 83615; 83735; 84100; 84145; 85025; 85379; 86140; 87635; 87804; 93005; 94644; 96372; 99285; C9113; J0360; J0885; J1200; J1630; J2270; J2405; J2765; J3490; J7030; J7060; Q0162

== ENCOUNTER 2020-02-11 14:35 | Inpatient (IN) | payer MEDICARE, MEDICAID ==
[~2020-02-11] VITALS: Ht 182.9 cm; Wt 77.6 kg
[2020-02-11] MEDS ORDERED: ONDANSETRON HCL 4MG/2ML INJ IV STA (15:02)
[2020-02-11 15:38] LABS: HEMATOCRIT. 27.2 % (36.0-48.0); HEMOGLOBIN. 8.9 g/dL (12.0-16.0); MEAN CORPUSCULAR HEMOGLOBIN 30.1 pg (28.0-32.0); MEAN CORPUSCULAR VOLUME 92.2 fL (81.0-99.0); MEAN PLATELET VOLUME 7.6 fl (7.4-10.4); PLATELET 87 x1000/uL (130-400); RED BLOOD CELL COUNT 2.95 mill/uL (4.2-5.4); RED CELL DISTRIBUTION WIDTH 16.9 % (11.6-14.6)
[2020-02-11 15:47] LABS: CHLORIDE 97 mEq/L (98-107)
[2020-02-11 15:51] LABS: HCG SCREEN NEGATIVE
[2020-02-11 16:04] LABS: PLATELET ESTIMATE DECREASED
[2020-02-11] MEDS ORDERED: KETOROLAC 30MG/ML VIAL IV ONE (17:30)
[2020-02-11] MEDS ORDERED: FENTANYL CITRATE/PF 50MCG/ML 2ML VIAL IV ONE (17:30)
[2020-02-11] MEDS ORDERED: MORPHINE SULFATE 2 MG/ML CPJ (NOT FOR IM USE) IV ONE (18:15)
[2020-02-11] MEDS ORDERED: HALOPERIDOL LACTATE 5MG/ML VIAL IM ONE (18:15)
[2020-02-11] MEDS ORDERED: HYDRALAZINE 20MG/ML VIAL IV ONE (18:45)
[2020-02-11] MEDS ORDERED: CEFTRIAXONE 1 G PREMIX 50 ML IV ONE (19:45)
[2020-02-11] MEDS ORDERED: METRONIDAZOLE 500 MG PREMIX 100 ML IV ONE (19:45)
[2020-02-11] MEDS ORDERED: DEXT 5%/0.45% NACL 1000ML 1,000 ML IV SCH (19:48)
[2020-02-11] MEDS ORDERED: ACETAMINOPHEN 325MG TABLET PO PRN (20:00)
[2020-02-11] MEDS ORDERED: HYDRALAZINE 20MG/ML VIAL IV PRN (20:00)
[2020-02-11] MEDS ORDERED: CLONIDINE 0.1MG TABLET PO PRN (20:00)
[2020-02-11] MEDS ORDERED: CLONIDINE 0.2MG TABLET PO PRN (20:30)
[2020-02-11] MEDS: ONDANSETRON HCL 4MG/2ML INJ IV PRN (20:45)
[2020-02-11] MEDS ORDERED: CLONIDINE HCL 0.2MG/24HR PATCH TOP SCH (22:30)
[2020-02-11] MEDS ORDERED: LABETALOL 5MG/ML SYR 20 MG/4 ML SYRINGE IV PRN (22:30)
[2020-02-11] MEDS ORDERED: MORPHINE SULFATE 2 MG/ML CPJ (NOT FOR IM USE) IV PRN (23:45)
[2020-02-12] MEDS: KETOROLAC 30MG/ML VIAL IV PRN ×2 (00:30→09:35)
[2020-02-12] MEDS ORDERED: NITROGLYCERIN OINT 1GM/INCH UDPKT TD SCH (03:00)
[2020-02-12] MEDS ORDERED: LEVOFLOXACIN 250MG PREMIX 50 ML IV SCH (03:00)
[2020-02-12] MEDS: HYDRALAZINE 20MG/ML VIAL IV PRN ×2 (03:52→20:47)
[2020-02-12] MEDS: METOCLOPRAMIDE HCL 10MG/2ML VIAL IV PRN ×2 (03:52→07:49)
[2020-02-12] MEDS: HYDROCODONE/ACETAMINOPHEN 5/325MG TABLET PO PRN (05:00)
[2020-02-12] MEDS ORDERED: NITROGLYCERIN 50MG PREMIX 250 ML IV SCH (05:30)
[2020-02-12 05:37] LABS: CLARITY URINE CLEAR (CLEAR); COLOR URINE YELLOW (YELLOW); KETONES URINE NEGATIVE (NEGATIVE); LEUKOCYTE ESTERASE URINE 2+ (NEGATIVE); NITRITE URINE NEGATIVE (NEGATIVE); OCCULT BLOOD URINE NEGATIVE (NEGATIVE); PH URINE >=9.0 (4.5-8.0); PROTEIN URINE 3+ (NEGATIVE); UROBILINOGEN URINE 0.2 E.U./dL (0.2-1.0)
[2020-02-12] MEDS: ONDANSETRON HCL 4MG/2ML INJ IV PRN (05:48)
[2020-02-12] MEDS ORDERED: METRONIDAZOLE 500 MG PREMIX 100 ML IV SCH (06:00)
[2020-02-12 06:04] LABS: *AMPHETAMINES SCREEN URINE NEGATIVE (NEGATIVE); *BARBITURATES SCREEN URINE NEGATIVE (NEGATIVE); *BENZODIAZEPINES SCREEN URINE NEGATIVE (NEGATIVE); *COCAINE SCREEN URINE NEGATIVE (NEGATIVE); METHADONE URINE SCREEN NEGATIVE (NEGATIVE); OPIATES URINE SCREEN NEGATIVE (NEGATIVE); PHENCYCLIDINE URINE SCREEN NEGATIVE (NEGATIVE)
[2020-02-12 06:06] LABS: CANNABINOID URINE SCREEN PRESUMTIVE POSITIVE (NEGATIVE)
[2020-02-12] MEDS: MORPHINE SULFATE 2 MG/ML CPJ (NOT FOR IM USE) IV PRN ×3 (08:09→21:19)
[2020-02-12] MEDS: AMLODIPINE 10MG TABLET PO SCH (09:00)
[2020-02-12] MEDS ORDERED: LABETALOL 5MG/ML SYR 20 MG/4 ML SYRINGE IV NR (09:30)
[2020-02-12] MEDS ORDERED: CLONIDINE 0.1MG TABLET PO NR (09:30)
[2020-02-12] MEDS ORDERED: CLONIDINE 0.1MG TABLET PO SCH (13:00)
[2020-02-12] MEDS ORDERED: DEXTROSE 50% WATER 50ML SYRINGE IV PRN (13:45)
[2020-02-12 15:44] LABS: TOTAL IRON BINDING CAPACITY 224 ug/dL (250-450)
[2020-02-12] MEDS ORDERED: BLOOD SUGAR DIAGNOSTIC STRIP TEST SCH (17:00)
[2020-02-12] MEDS ORDERED: INSULIN LISPRO 100 UNITS/ML SUBCUT SCH (18:20)
[2020-02-12 22:00] VITALS: BP 153/90
[2020-02-13] VITALS: BP 138/73
[2020-02-13] MEDS: METRONIDAZOLE 500 MG PREMIX 100 ML IV SCH ×2 (00:32→07:07)
[2020-02-13] MEDS: CLONIDINE 0.1MG TABLET PO SCH ×3 (00:33→11:54)
[2020-02-13 02:00] VITALS: BP 152/82
[2020-02-13] MEDS ORDERED: LEVOFLOXACIN 250MG PREMIX 50 ML IV SCH (03:00)
[2020-02-13 04:00] VITALS: BP 143/83
[2020-02-13] MEDS: BLOOD SUGAR DIAGNOSTIC STRIP TEST SCH ×2 (06:04→11:10)
[2020-02-13] MEDS: HYDROCODONE/ACETAMINOPHEN 5/325MG TABLET PO PRN (06:34)
[2020-02-13] MEDS: MORPHINE SULFATE 2 MG/ML CPJ (NOT FOR IM USE) IV PRN (07:02)
[2020-02-13] MEDS: INSULIN LISPRO 100 UNITS/ML SUBCUT SCH ×2 (07:20→11:10)
[2020-02-13 08:00] VITALS: BP 154/83
[2020-02-13] MEDS: AMLODIPINE 10MG TABLET PO SCH (09:00)
[2020-02-13 12:00] VITALS: BP 168/110
[2020-02-13] MEDS ORDERED: CLON0.1T PO (12:48)
[2020-02-13] MEDS ORDERED: CIPR-263 MT (12:48)
[2020-02-13] MEDS ORDERED: HYDR-4135 PO (12:48)
[2020-02-13] MEDS ORDERED: METR500T MT (12:48)
[2020-02-13 13:48] VITALS: BP 168/110
[2020-02-13] MEDS ORDERED: EPOETIN ALFA 10000UNITS/ML VIAL SUBCUT SCH (21:00)
== END 2020-02-13 14:00 | disposition home or self-care (01) | DRG 391 ==
LOC: ER 14:35 → UNDOADMIN 19:43 → 3WST 19:43 → ENRESERV 21:52 → EDBEDREQSVC 02-12 05:45 → EDBEDREQTM 02-12 05:45 → EDBEDREQSVC 02-12 13:47 → ENRESERV 02-12 21:03
PROVIDERS: ADMIT Internal Medicine; ATTEND Internal Medicine
PROC: 5A1D70Z Performance of Urinary Filtration, Intermittent, Less than 6 Hours Per Day (ICD-10-PCS; principal; 2020-02-13)
DX: K52.9 Noninfective gastroenteritis and colitis, unspecified (principal); N18.6 End stage renal disease; I16.1 Hypertensive emergency; I50.30 Unspecified diastolic (congestive) heart failure; I13.2 Hypertensive heart and chronic kidney disease with heart failure and with stage 5 chronic kidney disease, or end stage renal disease; E87.1 Hypo-osmolality and hyponatremia; N39.0 Urinary tract infection, site not specified; N25.81 Secondary hyperparathyroidism of renal origin; R18.8 Other ascites; K92.2 Gastrointestinal hemorrhage, unspecified; E78.5 Hyperlipidemia, unspecified; F32.9 Major depressive disorder, single episode, unspecified; K21.9 Gastro-esophageal reflux disease without esophagitis; E11.40 Type 2 diabetes mellitus with diabetic neuropathy, unspecified; E11.22 Type 2 diabetes mellitus with diabetic chronic kidney disease; D64.9 Anemia, unspecified; D69.6 Thrombocytopenia, unspecified; F12.10 Cannabis abuse, uncomplicated; Z99.2 Dependence on renal dialysis; Z88.0 Allergy status to penicillin; Z79.899 Other long term (current) drug therapy
CPT/HCPCS: 36415; 71045; 74176; 80053; 80305; 81003; 82668; 82728; 82962; 83036; 83540; 83550; 83880; 84484; 84703; 85025; 93005; 99291; J0360; J0696; J1630; J1885; J1956; J2270; J2405; J2765; J3010; J3490

== ENCOUNTER 2020-02-23 14:44 | Inpatient (IN) | payer MEDICARE, MEDICAID ==
[~2020-02-23] VITALS: Ht 180.3 cm; Wt 80.3 kg
[~2020-02-23 14:44] MED LIST changes: +CIPR-263 MT; +METR500T MT
[2020-02-23] MEDS ORDERED: METOCLOPRAMIDE HCL 10MG/2ML VIAL IV STA (15:05)
[2020-02-23] MEDS ORDERED: FAMOTIDINE 20MG/2ML VIAL IV STA (15:05)
[2020-02-23] MEDS ORDERED: KETOROLAC 15MG/ML VIAL IV ONE (15:15)
[2020-02-23] MEDS ORDERED: DIPHENHYDRAMINE 50MG/ML VIAL IV ONE (15:15)
[2020-02-23 16:00] LABS: BASOPHILS % 0.3 % (0.0-2.0); HEMOGLOBIN. 8.2 g/dL (12.0-16.0); LYMPHOCYTES % 7.9 % (20.0-50.0); MEAN PLATELET VOLUME 7.6 fl (7.4-10.4); MONOCYTES % 7.2 % (2.0-8.0); NEUTROPHILS % 84.6 % (40.0-76.0); PLATELET 114 x1000/uL (130-400); RED BLOOD CELL COUNT 2.66 mill/uL (4.2-5.4); RED CELL DISTRIBUTION WIDTH 16.4 % (11.6-14.6)
[2020-02-23 16:06] LABS: CHLORIDE 99 mEq/L (98-107)
[2020-02-23 16:07] LABS: INR 1.2; PROTHROMBIN TIME 12.7 sec (9.6-11.0)
[2020-02-23 16:19] LABS: HCG SCREEN NEGATIVE
[2020-02-23] MEDS ORDERED: HYDRALAZINE 20MG/ML VIAL IV NR (17:15)
[2020-02-23] MEDS ORDERED: HALOPERIDOL LACTATE 5MG/ML VIAL IM NR (17:15)
[2020-02-23] MEDS ORDERED: ACETAMINOPHEN 650MG/20.3ML UDC GT PRN ×2 (18:30)
[2020-02-23] MEDS ORDERED: ACETAMINOPHEN 325MG TABLET PO PRN ×2 (18:30)
[2020-02-23] MEDS ORDERED: GUAIFENESIN 200MG/10ML SUGAR FREE UDC PO PRN (18:30)
[2020-02-23] MEDS: CLONIDINE 0.2MG TABLET PO SCH (18:30)
[2020-02-23] MEDS ORDERED: MAGNESIUM/ALUMINUM HYDROXIDE/SIMETHICONE 30ML UDC PO PRN (18:30)
[2020-02-23] MEDS ORDERED: CLONIDINE 0.1MG TABLET PO PRN (18:30)
[2020-02-23] MEDS ORDERED: ONDANSETRON HCL 4MG/2ML INJ IV PRN (18:30)
[2020-02-23] MEDS ORDERED: ACETAMINOPHEN 650MG SUPP PR PRN ×2 (18:30)
[2020-02-23] MEDS ORDERED: HYDROCODONE/ACETAMINOPHEN 10/325MG TABLET PO PRN (18:30)
[2020-02-23] MEDS ORDERED: DOCUSATE SODIUM 100MG CAPSULE PO PRN (18:30)
[2020-02-23] MEDS: MORPHINE SULFATE 2 MG/ML CPJ (NOT FOR IM USE) IV PRN (19:44)
[2020-02-23] MEDS ORDERED: ENOXAPARIN 30MG/0.3ML SYR SUBCUT SCH (20:00)
[2020-02-23 20:55] VITALS: BP 181/91
[2020-02-24] VITALS: BP 184/111
[2020-02-24 00:05] VITALS: BP 178/112
[2020-02-24] MEDS: LOSARTAN POTASSIUM 100 MG TABLET PO SCH ×2 (00:18→08:36)
[2020-02-24] MEDS: MORPHINE SULFATE 2 MG/ML CPJ (NOT FOR IM USE) IV PRN ×2 (00:18→08:37)
[2020-02-24] MEDS: HYDRALAZINE HCL 50MG TABLET PO SCH ×4 (00:19→18:13)
[2020-02-24] MEDS: NIFEDIPINE XL 60MG TAB PO SCH ×2 (00:19→08:36)
[2020-02-24] MEDS: CLONIDINE 0.2MG TABLET PO SCH ×2 (06:00→13:12)
[2020-02-24 08:00] VITALS: BP 148/105
[2020-02-24] MEDS ORDERED: DIPHENHYDRAMINE 50MG/ML VIAL IV PRN ×2 (11:30→11:45)
[2020-02-24 12:00] VITALS: BP 169/86
[2020-02-24 16:04] VITALS: BP 152/81
[2020-02-24 18:17] VITALS: BP 152/81
== END 2020-02-24 19:10 | disposition home or self-care (01) | DRG 73 ==
LOC: ER 14:44 → MICUSO 17:15 → ENRESERV 22:03 → 6EST 22:40
PROVIDERS: ADMIT Family Medicine; ATTEND Family Medicine
PROC: 5A1D70Z Performance of Urinary Filtration, Intermittent, Less than 6 Hours Per Day (ICD-10-PCS; principal; 2020-02-24)
DX: E11.43 Type 2 diabetes mellitus with diabetic autonomic (poly)neuropathy (principal); N18.6 End stage renal disease; E87.1 Hypo-osmolality and hyponatremia; I12.0 Hypertensive chronic kidney disease with stage 5 chronic kidney disease or end stage renal disease; D63.8 Anemia in other chronic diseases classified elsewhere; E78.5 Hyperlipidemia, unspecified; E87.5 Hyperkalemia; G89.29 Other chronic pain; Z88.0 Allergy status to penicillin; Z99.2 Dependence on renal dialysis; Z79.2 Long term (current) use of antibiotics; Z79.899 Other long term (current) drug therapy; K31.84 Gastroparesis; E11.22 Type 2 diabetes mellitus with diabetic chronic kidney disease
CPT/HCPCS: 36415; 71045; 80053; 84703; 85025; 99285; J0360; J1200; J1630; J1650; J1885; J2270; J2405; J2765; J3490

== ENCOUNTER 2020-03-04 01:19 | Inpatient (IN) | payer MEDICARE, MEDICAID ==
[~2020-03-04] VITALS: Ht 170.2 cm; Wt 73.0 kg
[2020-03-04 02:41] LABS: BASOPHILS % 0.4 % (0.0-2.0); HEMOGLOBIN. 8.4 g/dL (12.0-16.0); LYMPHOCYTES % 8.5 % (20.0-50.0); MEAN CORPUSCULAR HEMOGLOBIN 30.3 pg (28.0-32.0); MEAN PLATELET VOLUME 9.4 fl (7.4-10.4); MONOCYTES % 7.9 % (2.0-8.0); NEUTROPHILS % 82.2 % (40.0-76.0); PLATELET 122 x1000/uL (130-400); RED BLOOD CELL COUNT 2.77 mill/uL (4.2-5.4); RED CELL DISTRIBUTION WIDTH 16.8 % (11.6-14.6)
[2020-03-04] MEDS ORDERED: HYDROCODONE/ACETAMINOPHEN 5/325MG TABLET PO ONE (03:00)
[2020-03-04 03:25] LABS: CHLORIDE 100 mEq/L (98-107)
[2020-03-04] MEDS ORDERED: CLONIDINE 0.2MG TABLET PO ONE (04:00)
[2020-03-04] MEDS ORDERED: IPRATROPIUM/ALBUTEROL 0.5-3(2.5)MG/3ML NEB ORI PRN (06:15)
[2020-03-04] MEDS ORDERED: DOCUSATE SODIUM 100MG CAPSULE PO PRN (06:15)
[2020-03-04] MEDS ORDERED: TRAMADOL 50MG TABLET PO PRN (06:15)
[2020-03-04] MEDS ORDERED: ACETAMINOPHEN 325MG TABLET PO PRN ×2 (06:15)
[2020-03-04] MEDS ORDERED: DIPHENHYDRAMINE 50MG/ML VIAL IV PRN (06:15)
[2020-03-04] MEDS ORDERED: NITROGLYCERIN 0.4MG TABLET SL SL PRN (06:15)
[2020-03-04] MEDS ORDERED: MAGNESIUM/ALUMINUM HYDROXIDE/SIMETHICONE 30ML UDC PO PRN (06:15)
[2020-03-04] MEDS ORDERED: ZOLPIDEM TARTRATE 5MG TABLET PO PRN (06:15)
[2020-03-04] MEDS ORDERED: LORAZEPAM 0.5MG TABLET PO PRN (06:15)
[2020-03-04] MEDS ORDERED: GUAIFENESIN 200MG/10ML SUGAR FREE UDC PO PRN (06:15)
[2020-03-04] MEDS ORDERED: ONDANSETRON HCL 4MG/2ML INJ IV PRN (06:15)
[2020-03-04] MEDS ORDERED: CLONIDINE 0.1MG TABLET PO PRN (06:15)
[2020-03-04] MEDS: METOCLOPRAMIDE HCL 5MG TABLET PO SCH ×2 (07:50→11:30)
[2020-03-04] MEDS ORDERED: METOCLOPRAMIDE 10MG/10 ML UDC PO SCH (07:50)
[2020-03-04] MEDS: HYDRALAZINE HCL 50MG TABLET PO SCH ×2 (08:00→14:00)
[2020-03-04] MEDS ORDERED: NIFEDIPINE XL 60MG TAB PO SCH (09:00)
[2020-03-04] MEDS ORDERED: FAMOTIDINE 20MG TABLET PO SCH ×2 (09:00)
[2020-03-04] MEDS: SUCRALFATE 1 G/10 ML UDC PO SCH ×2 (09:44→11:30)
[2020-03-04] MEDS: SEVELAMER CARBONATE 800 MG TABLET PO SCH ×2 (09:45→12:00)
[2020-03-04] MEDS ORDERED: NITROGLYCERIN OINT 1GM/INCH UDPKT TD SCH (14:00)
[2020-03-04 14:22] VITALS: BP 158/88
[2020-03-04] MEDS ORDERED: EPOETIN ALFA 10000UNITS/ML VIAL SUBCUT SCH (21:00)
== END 2020-03-04 16:25 | disposition left against medical advice (07) | DRG 304 ==
LOC: ER 01:19 → MICUSO 05:48
PROVIDERS: ADMIT Internal Medicine; ATTEND Internal Medicine
PROC: 5A1D70Z Performance of Urinary Filtration, Intermittent, Less than 6 Hours Per Day (ICD-10-PCS; principal; 2020-03-04)
DX: I16.0 Hypertensive urgency (principal); N18.6 End stage renal disease; E87.1 Hypo-osmolality and hyponatremia; R10.9 Unspecified abdominal pain; I12.0 Hypertensive chronic kidney disease with stage 5 chronic kidney disease or end stage renal disease; D63.8 Anemia in other chronic diseases classified elsewhere; E87.5 Hyperkalemia; F32.9 Major depressive disorder, single episode, unspecified; E11.40 Type 2 diabetes mellitus with diabetic neuropathy, unspecified; E21.1 Secondary hyperparathyroidism, not elsewhere classified; E11.22 Type 2 diabetes mellitus with diabetic chronic kidney disease; Z76.5 Malingerer [conscious simulation]; Z99.2 Dependence on renal dialysis; Z88.0 Allergy status to penicillin; Z79.899 Other long term (current) drug therapy; Z79.2 Long term (current) use of antibiotics; Z87.891 Personal history of nicotine dependence
CPT/HCPCS: 36415; 80053; 83036; 85025; 99285; J0885

== ENCOUNTER 2020-03-11 17:26 | Inpatient (IN) | payer MEDICARE, MEDICAID ==
[~2020-03-11] VITALS: Ht 180.3 cm; Wt 73.9 kg
[2020-03-11] MEDS ORDERED: MAGNESIUM/ALUMINUM HYDROXIDE/SIMETHICONE 30ML UDC PO STA (19:00)
[2020-03-11] MEDS ORDERED: FAMOTIDINE 20MG/2ML VIAL IV STA (19:00)
[2020-03-11] MEDS ORDERED: VISCOUS LIDOCAINE 2% 15 ML UDC PO STA (19:00)
[2020-03-11] MEDS ORDERED: HYDRALAZINE 20MG/ML VIAL IV NR (19:30)
[2020-03-11 20:39] LABS: BASOPHILS % 0.9 % (0.0-2.0); EOSINOPHILS % 1.2 % (0.0-5.0); HEMATOCRIT. 23.9 % (36.0-48.0); HEMOGLOBIN. 7.7 g/dL (12.0-16.0); MEAN CORPUSCULAR HEMOGLOBIN 30.3 pg (28.0-32.0); MEAN CORPUSCULAR VOLUME 94.2 fL (81.0-99.0); MEAN PLATELET VOLUME 8.3 fl (7.4-10.4); MONOCYTES % 6.1 % (2.0-8.0); NEUTROPHILS % 77.8 % (40.0-76.0); PLATELET 122 x1000/uL (130-400); RED BLOOD CELL COUNT 2.54 mill/uL (4.2-5.4); RED CELL DISTRIBUTION WIDTH 16.2 % (11.6-14.6)
[2020-03-11 20:46] LABS: CHLORIDE 100 mEq/L (98-107)
[2020-03-11 21:34] LABS: HEPATITIS B SURFACE ANTIGEN NEGATIVE
[2020-03-11] MEDS ORDERED: DEXTROSE 50% WATER 50ML SYRINGE IV SCH (21:45)
[2020-03-11] MEDS ORDERED: INSULIN REGULAR (HUMULIN R) 300UNITS/3ML IV SCH (21:45)
[2020-03-11] MEDS ORDERED: SODIUM BICARBONATE 8.4% 1 MEQ/ML 50ML SYR IV SCH (21:45)
[2020-03-11] MEDS ORDERED: CALCIUM CHLORIDE 1GM/10ML SYR IV SCH (21:45)
[2020-03-12] VITALS (13 sets, daily range): BP systolic 181–210; BP diastolic 94–115
[2020-03-12] MEDS ORDERED: FAMOTIDINE 20MG/2ML VIAL IV SCH (00:15)
[2020-03-12] MEDS ORDERED: SODIUM BICARBONATE 8.4% 1 MEQ/ML 50ML SYR IV SCH (00:15)
[2020-03-12] MEDS ORDERED: MORPHINE SULFATE 4 MG/ML CPJ (NOT FOR IM USE) IV ONE (00:15)
[2020-03-12] MEDS ORDERED: DOCUSATE SODIUM 100MG CAPSULE PO PRN (07:45)
[2020-03-12] MEDS ORDERED: ACETAMINOPHEN 325MG TABLET PO PRN (07:45)
[2020-03-12] MEDS ORDERED: IPRATROPIUM/ALBUTEROL 0.5-3(2.5)MG/3ML NEB HHN PRN (07:45)
[2020-03-12] MEDS ORDERED: MAGNESIUM/ALUMINUM HYDROXIDE/SIMETHICONE 30ML UDC PO PRN (07:45)
[2020-03-12] MEDS ORDERED: GUAIFENESIN 200MG/10ML SUGAR FREE UDC PO PRN (07:45)
[2020-03-12] MEDS ORDERED: HYDROCODONE/ACETAMINOPHEN 10/325MG TABLET PO PRN (07:45)
[2020-03-12] MEDS ORDERED: LORAZEPAM 2MG/ML CPJ IV PRN (07:45)
[2020-03-12] MEDS: HYDRALAZINE 20MG/ML VIAL IV PRN (08:06)
[2020-03-12] MEDS: CLONIDINE 0.1MG TABLET PO PRN (08:07)
[2020-03-12] MEDS: MORPHINE SULFATE 2 MG/ML CPJ (NOT FOR IM USE) IV PRN ×2 (08:13→19:48)
[2020-03-12] MEDS: ONDANSETRON HCL 4MG/2ML INJ IV PRN ×2 (08:13→14:46)
[2020-03-12] MEDS: PANTOPRAZOLE SODIUM 40 MG/VIAL IV SCH (09:44)
[2020-03-12 11:45] LABS: INR 1.1; PARTIAL THROMBOPLASTIN TIME 28.6 sec (23.4-31.0); PROTHROMBIN TIME 11.8 sec (9.6-11.0)
[2020-03-12] MEDS ORDERED: SODIUM BICARBONATE 4% (2.4MEQ) 5ML VIAL IV ONE (13:47)
[2020-03-12] MEDS ORDERED: IOHEXOL-300 100 ML BOTTLE ONE (13:47)
[2020-03-12] MEDS ORDERED: LIDOCAINE HCL 1% 20ML VIAL (Pyxis) INJ ONE (13:48)
[2020-03-12] MEDS: SODIUM CHLORIDE 0.9% INJ 3ML FLUSH IVF SCH ×2 (14:00→21:33)
[2020-03-12] MEDS ORDERED: FENTANYL CITRATE/PF 50MCG/ML 2ML VIAL ONE (14:04)
[2020-03-12] MEDS ORDERED: FENTANYL CITRATE/PF 50MCG/ML 2ML VIAL IV ONE (14:30)
[2020-03-12] MEDS: DIPHENHYDRAMINE 50MG/ML VIAL IV PRN ×2 (16:41→21:29)
[2020-03-12] MEDS ORDERED: EPOETIN ALFA 10000UNITS/ML VIAL SUBCUT SCH (21:00)
[2020-03-13] VITALS: BP 161/112
[2020-03-13] MEDS: HYDRALAZINE 20MG/ML VIAL IV PRN ×3 (01:06→16:54)
[2020-03-13] MEDS: MORPHINE SULFATE 2 MG/ML CPJ (NOT FOR IM USE) IV PRN ×4 (01:07→18:37)
[2020-03-13 02:06] VITALS: BP 149/93
[2020-03-13] MEDS: DIPHENHYDRAMINE 50MG/ML VIAL IV PRN ×2 (02:34→14:37)
[2020-03-13] MEDS: SODIUM CHLORIDE 0.9% INJ 3ML FLUSH IVF SCH ×3 (05:33→21:14)
[2020-03-13] MEDS: PANTOPRAZOLE SODIUM 40 MG/VIAL IV SCH (08:55)
[2020-03-13] MEDS: CLONIDINE 0.1MG TABLET PO PRN (10:27)
[2020-03-13 10:30] VITALS: BP 190/110
[2020-03-13 12:00] VITALS: BP 182/88
[2020-03-13 16:00] VITALS: BP 184/91
[2020-03-13] MEDS: DIPHENHYDRAMINE 50MG CAPSULE PO PRN (16:53)
[2020-03-14] MEDS: HYDRALAZINE 20MG/ML VIAL IV PRN (05:03)
[2020-03-14] MEDS: DIPHENHYDRAMINE 50MG CAPSULE PO PRN (05:03)
[2020-03-14] MEDS: SODIUM CHLORIDE 0.9% INJ 3ML FLUSH IVF SCH ×2 (05:04→17:06)
[2020-03-14] MEDS: MORPHINE SULFATE 2 MG/ML CPJ (NOT FOR IM USE) IV PRN ×3 (05:04→18:39)
[2020-03-14 05:10] VITALS: BP 187/81
[2020-03-14] MEDS: PANTOPRAZOLE SODIUM 40 MG/VIAL IV SCH (09:32)
[2020-03-14 18:39] VITALS: BP 187/81
[2020-03-14 20:13] LABS: MEAN CORPUSCULAR HEMOGLOBIN 29.7 pg (28.0-32.0); MEAN CORPUSCULAR VOLUME 91.7 fL (81.0-99.0); PLATELET 92 x1000/uL (130-400); RED CELL DISTRIBUTION WIDTH 16.1 % (11.6-14.6)
[2020-03-14 20:21] LABS: CHLORIDE 97 mEq/L (98-107)
[2020-03-14 20:29] LABS: HEMOGLOBIN 6.9 g/dL (12.0-16.0)
[2020-03-14 20:30] LABS: HEMATOCRIT 21.1 % (36.0-48.0)
[2020-03-15] MEDS ORDERED: FAMOTIDINE 20MG/2ML VIAL IV SCH (09:00)
== END 2020-03-14 21:00 | disposition left against medical advice (07) | DRG 314 ==
LOC: ER 17:26 → 8WST 03-12 00:01 → ENRESERV 03-12 04:01 → CANRESERV 03-12 04:01 → ENRESERV 03-12 07:19 → 8WST 03-12 15:36
PROVIDERS: ADMIT Internal Medicine; ATTEND Internal Medicine
PROC: B51W1ZZ Fluoroscopy of Dialysis Shunt/Fistula using Low Osmolar Contrast (ICD-10-PCS; principal; 2020-03-12)
PROC: 5A1D70Z Performance of Urinary Filtration, Intermittent, Less than 6 Hours Per Day (ICD-10-PCS; 2020-03-12)
PROC: B5181ZZ Fluoroscopy of Superior Vena Cava using Low Osmolar Contrast (ICD-10-PCS; 2020-03-12)
PROC: 5A1D70Z Performance of Urinary Filtration, Intermittent, Less than 6 Hours Per Day (ICD-10-PCS; 2020-03-14)
DX: T82.838A Hemorrhage due to vascular prosthetic devices, implants and grafts, initial encounter (principal); N18.6 End stage renal disease; I12.0 Hypertensive chronic kidney disease with stage 5 chronic kidney disease or end stage renal disease; F11.20 Opioid dependence, uncomplicated; D62 Acute posthemorrhagic anemia; K31.84 Gastroparesis; Z99.2 Dependence on renal dialysis; E87.5 Hyperkalemia; D69.6 Thrombocytopenia, unspecified; Y84.1 Kidney dialysis as the cause of abnormal reaction of the patient, or of later complication, without mention of misadventure at the time of the procedure; F17.200 Nicotine dependence, unspecified, uncomplicated; E87.70 Fluid overload, unspecified; E11.43 Type 2 diabetes mellitus with diabetic autonomic (poly)neuropathy; E11.21 Type 2 diabetes mellitus with diabetic nephropathy; F32.9 Major depressive disorder, single episode, unspecified; E21.1 Secondary hyperparathyroidism, not elsewhere classified; E11.22 Type 2 diabetes mellitus with diabetic chronic kidney disease; Y83.8 Other surgical procedures as the cause of abnormal reaction of the patient, or of later complication, without mention of misadventure at the time of the procedure; Z53.29 Procedure and treatment not carried out because of patient's decision for other reasons; Z91.19 Patient's noncompliance with other medical treatment and regimen; Z88.0 Allergy status to penicillin; Z79.2 Long term (current) use of antibiotics; Z71.6 Tobacco abuse counseling; Y92.89 Other specified places as the place of occurrence of the external cause; Z79.899 Other long term (current) drug therapy; Z03.818 Encounter for observation for suspected exposure to other biological agents ruled out
CPT/HCPCS: 36415; 36902; 74176; 76937; 80048; 80053; 85025; 85027; 86703; 86850; 86900; 93005; 99152; 99153; 99285; C1887; C9113; J0360; J0885; J1200; J1644; J1815; J2270; J2405; J3010; J3490; Q0163; Q9967; G0500